=== PATIENT | female | born 1950 | race Caucasian/White ===

== ENCOUNTER 2017-03-01 23:40 | Inpatient (IN) ==
[2017-03-02] MEDS ORDERED: Acetaminophen 325 MG TABLET PO PRN (05:54)
[2017-03-02] MEDS ORDERED: Ondansetron ODT 4 MG TAB.RAPDIS SL PRN (05:54)
[2017-03-02] MEDS ORDERED: Naloxone 0.4 MG/ML INJ IVP PRN ×2 (05:54→06:53)
--- NOTE | 2017-03-02 06:12 | Internal Med History&Physical ---
Date of Encounter: 03/02/17 Time of Encounter: 06:17 Assessment and Plan (1) CHF exacerbation Current visit: Yes Status: Acute Secondary to non-compliance and increased sodium intake. Will give 40 mg IV Lasix x1 followed by 20 mg IV BID afterwords. Strict I/Os, daily weights. Reviewed echocardiogram from 10/2016. Qualifiers: Congestive heart failure type: diastolic Qualified Code(s): I50.33 - Acute on chronic diastolic (congestive) heart failure (2) Lower respiratory tract infection Current visit: Yes Status: Acute Start Levaquin emperically. Patient does not have much sputum production. Check procalcitonin and if is negative, stop Levaquin. (3) CAD (coronary artery disease) Current visit: Yes Status: Acute Plavix, simvastatin Qualifiers: Coronary Disease-Associated Artery/Lesion type: unspecified vessel or lesion type [place] vs. 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: unspecified nursing home insulin use status Qualified Code(s): E11.9 - Type 2 diabetes mellitus without complications (5) Hyperlipidemia Current visit: Yes Status: Acute resume home statin Qualifiers: Hyperlipidemia type: unspecified Qualified Code(s): E78.5 - Hyperlipidemia , unspecified (6) GERD (gastroesophageal reflux disease) Current visit: Yes Status: Acute resume home ppi Qualifiers: Esophagitis presence: esophagitis presence not specified Qualified Code(s) : K21.9 - Gastro-esophageal reflux disease without esophagitis (7) Peptic ulcer Current visit: Yes Status: Acute Internal Medicine - H&P: HPI History of present illness: Ms. Fitzpatrick is a 66 year old female with history of CAD, DM, HPL, GERD, PUD, DOMINICK presented to [facility] ED for respiratory distress and lower extremity edema. Patient has history of edema and is supposed to follow a low sodium diet. She notes for past several weeks she has been non-compliant with sodium restriction. She also has gradual increase in cough with some sputum production. She called her netezza developer for this respiratory distress and was prescribed Augmentin now on day 4 without any resolve. She admits to chest discomfort with coughing, orthopnea, non-compliant with CPAP because of mask irritation. She denies any fevers/chills, N/V, PND. At [facility] labs significant for BNP 5,231, glucose 248, creatinine within normal limits of 1.08. Troponin cycled was 0.14 and 0.13 respectively. Lactic acid was elevated at 3.5. An echocardiogram done in 10/2016 showed EF 65% with normal LVSF and mild diastolic dysfunction. She does not smoke, denies history of COPD. 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 Past Med Surg Social Fam HX - Past Medical History Medical history: arthritis, CHF, COPD, coronary artery disease, GERD, hyperlipidemia, hypertension Psychiatric history: depression - Past Surgical History Surgical History: coronary bypass (CABG) - Social History Smoking Status: Never smoker Smokeless Tobacco Status: No Alcohol use: none Drug use: none - Family History Mother Living Status: Hx Family Cardiac Disorders: Yes Father Living Status: Hx Family Cardiac Disorders: Yes Hx Family Cancer: Yes (bone cancer) Internal Medicine - H&P: Meds Amoxicillin/Clavulanate [Augmentin] 875 mg PO BID 03/02/17 [History] Calcium Carbonate/Vitamin D3 [Calcium 600-Vit D3 400 Tablet] 1 each PO DAILY [History] Carvedilol [Coreg] 3.125 mg PO BID 03/02/17 [History] Clopidogrel [Plavix] 75 mg PO DAILY 03/02/17 [History] FLUoxetine HCl [PROzac] 40 mg PO DAILY 03/02/17 [History] Gabapentin [Neurontin] 800 mg PO TID 03/02/17 [History] HYDROcodone/Acet 10/325 mg [[place] 10-325 mg] 1 tab PO BID PRN 03/02/17 [History] Insulin ASPART [Novolog Flexpen] 100 unit SQ ACHS 03/02/17 [History] Insulin Glargine [Lantus] 28 unit SQ HS 03/02/17 [History] Lisinopril [Zestril] 10 mg PO DAILY 03/02/17 [History] Magnesium Hydroxide [Milk of Magnesia] 100 ml PO DAILY PRN 03/02/17 [History] Pantoprazole Sodium [Protonix] 20 mg PO DAILY 03/02/17 [History] Sennosides [Senna] 8.6 mg PO BID PRN 03/02/17 [History] Simvastatin [Zocor] 40 mg PO HS 03/02/17 [History] Tizanidine HCl [Zanaflex] 4 mg PO TID PRN 03/02/17 [History] hydroCHLOROthiazide [Hydrochlorothiazide] 25 mg PO DAILY 03/02/17 [History] 3 Allergy/AdvReac Type Severity Reaction Status Date / Time codeine AdvReac Nausea Verified 10/01/15 10:27 All Systems PM: A 10-system review of systems was performed and is negative for pertinent findings except as documented above in the HPI. - Constitutional Constitutional: as per HPI, fever(s) - EENT Eyes: no change in vision, no discharge, no pain, no photophobia - Cardiovascular Cardiovascular ROS IM: chest pain, dyspnea, edema, no diaphoresis, no lightheadedness, no palpitations, no syncope - Respiratory Respiratory: cough, dyspnea, pain with cough, no hemoptysis, no wheezing - Gastrointestinal Gastrointestinal: no abdominal pain, no diarrhea, no hematemesis, no hematochezia, no melena, no nausea, no vomiting - Musculoskeletal Musculoskeletal ROS IM: no numbness, no tingling - Integumentary Integumentary IM: no rash, no unusual bruising - Constitutional Vitals: Temp Pulse Resp BP Pulse Ox 98.9 F 110 18 166/74 92 03/02/17 04:12 03/02/17 04:12 03/02/17 04:12 03/02/17 04:12 03/02/17 04:12 General appearance: Present: mild distress, A&O X 3, obese - Respiratory Additional comments: Poor inspiratory effort, poor air exchange at bases, no w/r/r. - Cardiovascular Cardiovascular exam: Present: RRR, +S1, +S2. Absent: diastolic murmur, gallop, JVD, rubs, systolic murmur - Extremities Exam Extremities exam: Present: pedal edema (2+), radial pulses palpable and symmetrical - Skin Skin exam: Present: dry, intact Internal Med - H&P Results - Labs CBC & Chem 7: 03/02/17 06:59 03/02/17 06:59
[2017-03-02] MEDS ORDERED: predniSONE 20 MG TABLET PO ONE (06:27)
[2017-03-02] MEDS ORDERED: Furosemide 40 MG/4 ML VIAL IVP ONE (06:49)
[2017-03-02] MEDS ORDERED: *HR* Labetalol 20 MG/4 ML SYRINGE IVP PRN (06:58)
[2017-03-02 07:14] LABS: Basophils # 0.1 K/mcL (0.0-0.2); Basophils % 0.5 %; Eosinophils % 0.1 %; Hematocrit 31.7 % (35.3-44.9); Hemoglobin 9.6 g/dL (11.5-15.4); Immature Granulocytes % 0.6 % (0-4); Lymphocytes % 6.8 %; Mean Corpuscular HGB Conc 30.3 g/dL (31.6-35.5); Mean Corpuscular Hemoglobin 28.1 pg (28.0-33.3); Mean Corpuscular Volume 92.7 fL (83.0-100.0); Mean Platelet Volume 9.7 fL (9.4-12.4); Monocytes # 1.4 K/mcL (0.0-1.3); Monocytes % 9.9 %; Neutrophils # 11.8 K/mcL (1.6-8.9); Platelet Count 308 K/mcL (140-400); Red Blood Count 3.42 M/mcL (3.82-4.97); Red Cell Distribution Width 14.7 % (11.5-14.5); Segmented Neutrophils % 82.1 %
[2017-03-02] MEDS ORDERED: Dextrose Gel 15 GM PO PRN ×2 (07:50)
[2017-03-02] MEDS ORDERED: D5% in Water 1,000 ML IVC PRN (07:50)
[2017-03-02] MEDS ORDERED: *HR* Dextrose 50 % in Water (Syg) 50 ML SYRINGE IVP PRN (07:50)
--- NOTE | 2017-03-02 08:14 | Internal Med Progress Note ---
<Yonatan Francis - Last Filed: 03/02/17 14:55> Date of Encounter: 03/02/17 Time of Encounter: 09:38 - Assessment and plan (1) COPD exacerbation Current Visit: Yes Status: Acute Assessment and plan: Patient states she does not have a history of COPD but does use oxygen at home has increased oxygen use to where she is been using a pulse 5 L at home when she used on the use as needed. Status post used constant. Continue oxygen therapy. If shortness of breath worsens consider BiPAP. (2) CHF exacerbation Current Visit: Yes Status: Acute Assessment and plan: Secondary to noncompliance and increased sodium intake. Gave 40 mg IV Lasix stat will continue 20 mg IV twice a day after this. Strict I/O's, daily weights. Echo was reviewed from 10/2016. Fluid restriction to 1500 mL per day. Qualifiers: Congestive heart failure type: unspecified congestive heart failure type Qualified Code(s): I50.9 - Heart failure, unspecified (3) Elevated troponin Current Visit: Yes Status: Acute Assessment and plan: Most likely due to demand ischemia because of the CHF exacerbation. Pt still with no Chest pain. We will trend every 6 hours if it lowers with Lasix therapy will put toward CHF exacerbation. If it does not trend down we will repeat EKG and consult cardiology. Give Aspirin Patient's second troponin was elevated at 0.37 started heparin low-dose ACS protocol. Also ordered limited echocardiogram and repeat EKG. Repeat EKG showed no acute ST changes. Consulted cardiology see their note for recommendations. (4) CAD (coronary artery disease) Current Visit: Yes Status: Acute Assessment and plan: Plavix, simvastatin, aspirin trend troponins, consider cardiology consultation. Qualifiers: Coronary Disease-Associated Artery/Lesion type: unspecified vessel or lesion type [place] vs. 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 Qualified Code(s): E11.9 - Type 2 diabetes mellitus without complications (6) Hyperlipidemia Current Visit: Yes Status: Acute Assessment and plan: Resume home statin Qualifiers: Hyperlipidemia type: unspecified Qualified Code(s): E78.5 - Hyperlipidemia , unspecified (7) GERD (gastroesophageal reflux disease) Current Visit: Yes Status: Acute Assessment and plan: Resume home PPI Qualifiers: Esophagitis presence: esophagitis presence not specified Qualified Code(s) : K21.9 - Gastro-esophageal reflux disease without esophagitis (8) Peptic ulcer Current Visit: Yes Status: Acute (9) Lower respiratory tract infection Current Visit: Yes Status: Acute Assessment and plan: Has been on Augmentin for 4 days from pulmonology has not been getting better with shortness of breath. We will empirically treat with Levaquin IV. Patient does not have much sputum production still following procalcitonin. - Time Spent With Patient 25 - 35 minutes - Subjective Interval history: Patient is doing well today says she is still short of breath and complaining of pain when she takes big deep respirations is not complaining of chest pain. She is not complaining of nausea or vomiting or any other pain. She was recently given Lasix and Dilaudid she starting to get up and urinate more. She is having pain with urination patient says after she was given pain medications and the pain is getting much better. - Constitutional Vitals: Temp Pulse Resp BP Pulse Ox 98.9 F 110 18 166/74 92 03/02/17 04:12 03/02/17 04:12 03/02/17 04:12 03/02/17 04:12 03/02/17 04:12 General appearance: Present: A&O X 3, no acute distress, answers questions appropriately - Head Head exam: Present: atraumatic, normocephalic - Eye Eye exam: Present: PERRL, conjuntiva pink, sclera anicteric Pupils: Present: PERRL - Neck Neck exam general surgery: Present: supple, trachea midline. Absent: lymphadenopathy - Respiratory Respiratory exam: Present: decreased breath sounds (No breath sounds on the left side due to lung paralysis.), wheezes (Mild on right side throughout). Absent: accessory muscle use, rales, rhonchi - Cardiovascular Cardiovascular exam: Present: RRR, +S1, +S2. Absent: diastolic murmur, gallop, rubs, systolic murmur - GI/Abdominal GI/Abdominal exam: Present: normal bowel sounds, soft, no peritoneal signs. Absent: distended, tenderness - Extremities Exam Extremities exam: Present: warm, radial pulses palpable and symmetrical. Absent : calf tenderness, cyanotic, pedal edema - Neurological Exam Neurological exam: Present: CN II-XII intact, oriented X3, no focal deficits. Absent: pronater drift, facial droop, speech deficit - Skin Skin exam: Present: dry, intact Internal Medicine: Result - Labs CBC & Chem 7: 03/02/17 13:36 03/02/17 06:59 Labs: Short CBC 03/02/17 Range/Units 06:59 WBC 14.3 H (4.3-11.1) K/mcL Hgb 9.6 L (11.5-15.4) g/dL Hct 31.7 L (35.3-44.9) % Plt Count 308 (140-400) K/mcL Neutrophils # 11.8 H (1.6-8.9) K/mcL Cardiac Enzymes 03/02/17 Range/Units 06:59 Troponin I 0.25 H* (< 0.04) ng/mL - EKG Interpretation EKG Interpreted by Myself: Yes EKG shows normal: sinus rhythm, axis, intervals, QRS complexes, ST-T waves Rate: tachycardia - EKG Data no acute changes Rhythm: NSR [place]/QRS: normal - Prior EKG Data Prior EKG available for review: yes When compared to previous EKG: there is no significant change EKG comments: 03/02/17 14:58 Repeat EKG done at 1425 review by myself and attending shows normal sinus rhythm at a rate of 95, OH interval 164, QRS 110, QTc [address] changes, no acute T-wave abnormalities, no signs of any heart strain or hypertrophy, no signs of any heart blocks, no signs of WPW/Brugada syndrome. This EKG is unchanged based on previous EKGs done yesterday. Consult Discharge Plan - Plan Referrals: Vane Mckee CNP [Primary Care Provider] - 03/17/17 8:00 am (Please follow up as schedule...) <Alfredo-Rubén Bartlett - Last Filed: 03/02/17 15:14> Date of Encounter: 03/02/17 - Constitutional Vitals: Temp Pulse Resp BP Pulse Ox 98.5 F 100 17 147/79 90 12/20/17 11:49 03/02/17 11:49 03/02/17 11:49 03/02/17 11:49 03/02/17 11:49 Internal Medicine: Result - Labs CBC & Chem 7: 03/02/17 13:36 03/02/17 06:59 Labs: Short CBC 03/02/17 03/02/17 Range/Units 06:59 13:36 WBC 14.3 H 13.9 H (4.3-11.1) K/mcL Hgb 9.6 L 9.8 L (11.5-15.4) g/dL Hct 31.7 L 32.5 L (35.3-44.9) % Plt Count 308 306 (140-400) K/mcL Neutrophils # 11.8 H (1.6-8.9) K/mcL BMP 03/02/17 06:59 Sodium 133 L Potassium 5.0 Chloride 93 L Carbon Dioxide 30 H BUN 14 Creatinine 0.88 Glucose 270 H Calcium 9.4 Cardiac Enzymes 03/02/17 03/02/17 Range/Units 06:59 12:43 Troponin I 0.25 H* 0.37 H* (< 0.04) ng/mL - ABG Interpretation ABG results: PT/INR, D-dimer PT 15.9 Seconds (9.4-12.1) H 03/02/17 13:36 - Attending Attestation I examined this patient and my medical decision-making was reviewed with the Resident Physician. I agree with the documented findings, disposition and treatment plan as described except to the extent set forth below. I have seen and examined the patient. Patient is currently awake and alert. Admitted for CHF exacerbation and pulmonary edema. Troponin is elevated. EKG does not show any acute ST-T changes. She is currently on IV heparin. Cardiology has been consulted. Continue Aspirin, Plavix and Atorvastatin. echocardiogram is pending. No other acute events or complaints.
[2017-03-02 08:17] LABS: BUN/Creatinine Ratio 16 (6-26); Blood Urea Nitrogen 14 mg/dL (8-23); Calcium 9.4 mg/dL (8.6-10.3); Carbon Dioxide 30 mEq/L (23-29); Chloride 93 mEq/L (98-107); Glucose 270 mg/dL (70-105); Magnesium 1.6 mg/dL (1.6-2.6); Osmolality,Calculated 286 (280-300); Phosphorous 2.5 mg/dL (2.7-4.5); Sodium 133 mEq/L (136-145); eGFR For African Americans > 60 (> 60); eGFR For Non-African Americans > 60 (> 60)
[2017-03-02] MEDS: Gabapentin 400 MG CAPSULE PO SCH ×3 (08:46→20:50)
[2017-03-02] MEDS ORDERED: MAGNESIUM HYDROXIDE PO PRN (08:52)
[2017-03-02] MEDS ORDERED: Sennosides 8.6 MG TABLET PO PRN (08:52)
[2017-03-02] MEDS ORDERED: *HR* HYDROcodone/Acet 10/325 mg TABLET PO PRN (08:52)
[2017-03-02] MEDS ORDERED: hydroCHLOROthiazide 25 MG TABLET PO SCH (09:00)
[2017-03-02] MEDS ORDERED: NON-FORMULARY MEDICATION 1 EACH EACH (Calcium Carbonate/Vitamin D3 [Calcium 600-Vit D3 400 PO SCH (09:00)
[2017-03-02] MEDS ORDERED: Mag Hydrox/Al Hydrox/Simeth 30 ML UDC PO PRN (09:05)
[2017-03-02] MEDS: FLUoxetine 20 MG CAPSULE PO SCH (09:19)
[2017-03-02] MEDS: Cholecalciferol (D-3) 1,000 UNIT TABLET PO SCH (09:20)
[2017-03-02] MEDS: *HR* OxyCODONE/APAP 5/325 TABLET PO PRN ×2 (09:20→17:38)
[2017-03-02] MEDS: Insulin LISPRO 300 UNITS/3 ML VIAL SQ SCH ×4 (09:50→20:50)
[2017-03-02] MEDS: Aspirin 81 MG TAB.CHEW PO SCH (11:59)
[2017-03-02] MEDS ORDERED: NON-FORMULARY MEDICATION 1 EACH EACH (Insulin Aspart [Novolog Flexpen] 100 UNIT) SQ SCH (12:00)
[2017-03-02] MEDS ORDERED: *HR* Heparin 5,000 UNIT/ML VIAL IVP ONE (13:27)
[2017-03-02] MEDS ORDERED: *HR* Heparin 5,000 UNIT/ML VIAL IVP PRN (13:27)
[2017-03-02 13:58] LABS: Hematocrit 32.5 % (35.3-44.9); Hemoglobin 9.8 g/dL (11.5-15.4); Mean Corpuscular HGB Conc 30.2 g/dL (31.6-35.5); Mean Corpuscular Hemoglobin 27.4 pg (28.0-33.3); Mean Corpuscular Volume 90.8 fL (83.0-100.0); Mean Platelet Volume 9.5 fL (9.4-12.4); Platelet Count 306 K/mcL (140-400); Red Blood Count 3.58 M/mcL (3.82-4.97); Red Cell Distribution Width 14.6 % (11.5-14.5)
[2017-03-02 14:02] LABS: INR 1.5; Prothrombin Time 15.9 Seconds (9.4-12.1)
[2017-03-02 14:05] LABS: Activated Partial Thrombo Time 29.3 Seconds (26.0-36.0)
--- NOTE | 2017-03-02 14:13 | Cardiology Consult Note ---
Addendum entered and electronically signed by Andi Campbell CNP 03/02/17 15:09: Discussed with Dr. Rees, recommends re-loading with 300mg Plavix. Will give now. Original Note: <Andi Campbell - Last Filed: 03/02/17 14:20> Date of Encounter: 03/02/17 Time of Encounter: 14:09 Assessment and Plan (1) Elevated troponin Current Visit: Yes Status: Acute Troponins 0.14, 0.13, 0.25, 0.37 in setting of CHF exacerbation--demand ischemia vs NSTEMI. Reports chest pressure, dyspnea. Recommend trending troponins. Significant CAD hx--Hx of PCI and most recently CABG in 2008--has not had LHC since that time. Echo 10/2016 EF LVEF 65%. Normal left ventricular size and systolic function, mild LVDD, mild TR, mild phtn. Recheck echo. Given elevated troponin, symptoms, and hx, recommend LHC once respiratory status allow. R/B/A discussed. Pt agrees. HGB 9.6--previously 11.4 09/2016. No evidence of active bleeding. Will continue to monitor. On ASA and Plavix. Will discuss with interventional cardiology if pt should be reloaded with Plavix. Start heparin gtt as well. (2) CHF exacerbation Current Visit: Yes Status: Acute BNP >5,000 at [facility]. Admits to excessive Na intake. Echo 10/2016 Preserved EF with mild LVDD. Recheck echo to determine type. Agree with IV diuresis. Recommend Strict I/Os, Na and fluid restriction, daily weights. Qualifiers: Congestive heart failure type: unspecified congestive heart failure type Qualified Code(s): I50.9 - Heart failure, unspecified (3) CAD (coronary artery disease) Current Visit: Yes Status: Acute Hx of PCI and CABG, most recently CABG in 2008. ASA, Statin, Plavix, BB. Qualifiers: Coronary Disease-Associated Artery/Lesion type: unspecified vessel or lesion type [place] vs. transplanted heart: [place] heart Associated angina: angina presence unspecified Qualified Code(s): I25.10 - Atherosclerotic heart disease of [place] coronary artery without angina pectoris Discussion w patient/family: The assessment and plan as outlined above was discussed with the patient and/or family members who expressed understanding and agreement. All questions were answered. Thank you for involving us in the care of your patient. Please call with any questions. I will discuss all the above with Dr. Han and make changes as necessary. History of Present Illness Consult date: 03/02/17 Requesting physician: Yonatan Francis Consult reason: NSTEMI, CHF Chief complaint: Dyspnea, chest pressure, lower extremity edema History of present illness: Ms. Fitzpatrick is a 66 year old female with history of CAD s/p PCI and CABG, DM, HLD , GERD, PUD, DOMINICK presented to [facility] ED for respiratory distress and lower extremity edema. Patient has history of intermittent edema and is supposed to follow a low sodium diet. She notes for past several weeks she has been non- compliant with sodium restriction. She also has gradual increase in cough with some sputum production. She called her urology physician for this respiratory distress and was prescribed Augmentin now on day 4 without any resolve. She admits to chest discomfort with exertion, coughing and when she gets short of breath, orthopnea, non-compliant with CPAP because of mask irritation. She denies any fevers/chills, N/V, PND. At [facility] BNP 5,231, Troponin at [facility] 0.14 and 0.13, now 0.25, 0.37. Echo 10/2016 showed EF 65%, mild diastolic dysfunction. 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 She has not had a LHC since CABG in 2008. Currently rates chest pressure 6/10. Cardiology consulted for further recommendations. Past Med Surg Social Fam HX - Past Medical History Medical history: arthritis, CHF, COPD, coronary artery disease, GERD, hyperlipidemia, hypertension Psychiatric history: depression - Past Surgical History Surgical History: coronary bypass (CABG) - Social History Smoking Status: Never smoker Smokeless Tobacco Status: No Alcohol use: none Drug use: none - Family History Mother Living Status: Hx Family Cardiac Disorders: Yes Father Living Status: Hx Family Cardiac Disorders: Yes Hx Family Cancer: Yes (bone cancer) Medications and Allergies Amoxicillin/Clavulanate [Augmentin] 875 mg PO BID 03/02/17 [History] Calcium Carbonate/Vitamin D3 [Calcium 600-Vit D3 400 Tablet] 1 each PO DAILY [History] Carvedilol [Coreg] 3.125 mg PO BID 03/02/17 [History] Clopidogrel [Plavix] 75 mg PO DAILY 03/02/17 [History] FLUoxetine HCl [PROzac] 40 mg PO DAILY 03/02/17 [History] Gabapentin [Neurontin] 800 mg PO TID 03/02/17 [History] HYDROcodone/Acet 10/325 mg [[place]ixson 10-325 mg] 1 tab PO BID PRN 03/02/17 [History] Insulin ASPART [Novolog Flexpen] 100 unit SQ ACHS 03/02/17 [History] Insulin Glargine [Lantus] 28 unit SQ HS 03/02/17 [History] Lisinopril [Zestril] 10 mg PO DAILY 03/02/17 [History] Magnesium Hydroxide [Milk of Magnesia] 100 ml PO DAILY PRN 03/02/17 [History] Pantoprazole Sodium [Protonix] 20 mg PO DAILY 03/02/17 [History] Sennosides [Senna] 8.6 mg PO BID PRN 03/02/17 [History] Simvastatin [Zocor] 40 mg PO HS 03/02/17 [History] Tizanidine HCl [Zanaflex] 4 mg PO TID PRN 03/02/17 [History] hydroCHLOROthiazide [Hydrochlorothiazide] 25 mg PO DAILY 03/02/17 [History] 3 Allergy/AdvReac Type Severity Reaction Status Date / Time codeine AdvReac Nausea Verified 10/01/15 10:27 All Systems Review: A 10-system review of systems was performed and is negative for pertinent findings except as documented above in the HPI. - Cardiovascular Cardiovascular: as per HPI, chest pain at rest, chest pain with exertion, dyspnea at rest, dyspnea on exertion, orthopnea - Respiratory Respiratory: cough, dyspnea Physical Examination Vital Signs, Last 4 Hours Temp Pulse Resp BP Pulse Ox 03/02/17 11:49 98.5 F 100 17 147/79 90 Vital Signs Temp Pulse Resp BP Pulse Ox 03/02/17 11:49 98.5 F 100 17 147/79 90 03/02/17 04:12 98.9 F 110 18 166/74 92 03/02/17 01:17 99.4 F 112 18 166/85 95 Intake and Output 03/01/17 03/02/17 03/02/17 23:59 07:59 15:59 Intake Total 0 / 0 Output Total 500 / 500 500 / 500 Balance -500 / -500 -500 / -500 Intake: Oral 0 / 0 Output: Urine 500 / 500 500 / 500 Other: Meal Breakfast Percent of Meal Consumed 100% Weight 98.43 kg Blood Glucose* 230 Patient Weight 03/02/17 23:59 Weight 98.43 kg General: Conversant, No Apparent Distress HEENT: Atraumatic, Normocephaly, Mucus Membranes Moist Neck: Normal carotid pulses Cardiac: Reg Rate and Rhythm, Normal S1 and S2, No Murmur Lungs: Other (diminished) Neuro: Alert and responsive, No focal deficits noted Abdomen: Soft, Non-Tender Skin: No rashes noted on visualized skin Musculoskeletal: No Chest Wall Tenderness Extremities: No Clubbing, No Cyanosis, No Edema, Normal Pulses Results 03/02/17 13:36 03/02/17 06:59 Lab Results 03/02/17 03/02/17 03/02/17 06:59 06:59 06:59 WBC 14.3 H Hgb 9.6 L Hct 31.7 L Plt Count 308 INR APTT Sodium 133 L Potassium 5.0 Chloride 93 L Carbon Dioxide 30 H BUN 14 Creatinine 0.88 Glucose 270 H Calcium 9.4 Magnesium 1.6 Troponin I 0.25 H* 03/02/17 03/02/17 12:43 13:36 WBC Hgb Hct Plt Count INR 1.5 APTT 29.3 Sodium Potassium Chloride Carbon Dioxide BUN Creatinine Glucose Calcium Magnesium Troponin I 0.37 H* Short CBC 03/02/17 03/02/17 Range/Units 13:36 06:59 WBC 13.9 H 14.3 H (4.3-11.1) K/mcL Hgb 9.8 L 9.6 L (11.5-15.4) g/dL Hct 32.5 L 31.7 L (35.3-44.9) % Plt Count 306 308 (140-400) K/mcL Neutrophils # 11.8 H (1.6-8.9) K/mcL BMP 03/02/17 Range/Units 06:59 Sodium 133 L (136-145) mEq/L Potassium 5.0 (3.5-5.1) mEq/L Chloride 93 L (98-107) mEq/L Carbon Dioxide 30 H (23-29) mEq/L BUN 14 (8-23) mg/dL Creatinine 0.88 (0.60-1.20) mg/dL Glucose 270 H (70-105) mg/dL Calcium 9.4 (8.6-10.3) mg/dL Cardiac Enzymes 03/02/17 03/02/17 Range/Units 12:43 06:59 Troponin I 0.37 H* 0.25 H* (< 0.04) ng/mL Active Medications Acetaminophen (Tylenol) 650 mg PO Q6HR PRN PRN Reason: Mild Pain (1-3) Stop: 09/01/17 05:55 Al Hydrox/Mg Hydrox/Simethicone (Maalox) 30 ml PO Q8H PRN; Protocol PRN Reason: Indigestion/Heartburn Stop: 09/01/17 09:06 Aspirin (Aspirin) 81 mg PO DAILY [facility] Stop: 09/01/17 10:31 Last Admin: 03/02/17 11:59 Dose: 81 mg Atorvastatin Calcium (Lipitor) 40 mg PO HS [facility] Stop: 09/01/17 21:01 Calcium Carbonate (Tums) 500 mg PO DAILY LAST PRN Reason: Protocol Stop: 09/01/17 09:16 Last Admin: 03/02/17 09:18 Dose: 500 mg Carvedilol (Coreg) 3.125 mg PO BIDWM LAST PRN Reason: Protocol Stop: 09/01/17 08:01 Last Admin: 03/02/17 08:46 Dose: 3.125 mg Clopidogrel Bisulfate (Plavix) 75 mg PO DAILY [facility] Stop: 09/01/17 09:01 Last Admin: 03/02/17 08:46 Dose: 75 mg Dextrose/Water (Dextrose 50% (Syg)) 25 ml IVP AD PRN PRN Reason: Hypoglycemia Stop: 09/01/17 07:51 Fluoxetine HCl (Prozac) 40 mg PO DAILY LAST PRN Reason: Protocol Stop: 09/01/17 09:01 Last Admin: 03/02/17 09:19 Dose: 40 mg Furosemide (Lasix) 20 mg IVP BIDDIURETIC [facility] Stop: 03/05/17 08:01 Gabapentin (Neurontin) 800 mg PO TID [facility] Stop: 09/01/17 09:01 Last Admin: 03/02/17 08:46 Dose: 800 mg Glucagon (Glucagen) 1 mg IM ONCE PRN PRN Reason: Hypoglycemia Stop: 09/01/17 07:51 Glucose (Gluctose) 15 gm PO ONCE PRN PRN Reason: Hypoglycemia Stop: 09/01/17 07:51 Glucose (Gluctose) 30 gm PO ONCE PRN PRN Reason: Hypoglycemia Stop: 09/01/17 07:51 Heparin Sodium (Porcine) (Heparin) 4,000 unit IVP Q6HR PRN PRN Reason: SEE COMMENTS Stop: 09/01/17 13:28 Heparin Sodium (Porcine) (Heparin) 2,000 unit IVP Q6H PRN PRN Reason: SEE COMMENTS Stop: 09/01/17 13:28 Hydrochlorothiazide (Hydrochlorothiazide) 25 mg PO DAILY LAST PRN Reason: Protocol Stop: 09/01/17 09:01 Last Admin: 03/02/17 09:19 Dose: 25 mg Dextrose (Dextrose 5%) 1,000 mls @ 100 mls/hr IVC .Q10H PRN PRN Reason: HYPOGLYCEMIA Stop: 09/01/17 07:51 Heparin Sodium/Dextrose (Heparin 25,000 Unit/500 Ml D5w) 25,000 unit in 500 mls @ 19.686 mls/hr IVC .Q24H LAST; 10 UNIT/KG/HR PRN Reason: Protocol Stop: 09/01/17 13:31 Insulin Detemir (Levemir) 28 unit SQ HS LAST Stop: 09/01/17 21:01 Insulin Human Lispro (Humalog) 0 units SQ HS LAST PRN Reason: Protocol Stop: 09/01/17 21:01 Insulin Human Lispro (Humalog) 0 units SQ TIDAC LAST PRN Reason: Protocol Stop: 09/01/17 07:52 Last Admin: 03/02/17 11:55 Dose: 6 units Labetalol HCl (Labetalol) 10 mg IVP Q6H PRN PRN Reason: Blood Pressure - High Stop: 09/01/17 06:59 Lansoprazole (Prevacid) 15 mg PO DAILY@0730 LAST PRN Reason: Protocol Stop: 09/01/17 07:51 Last Admin: 03/02/17 09:19 Dose: 15 mg Lisinopril (Zestril) 10 mg PO DAILY LAST PRN Reason: Protocol Stop: 09/01/17 09:01 Last Admin: 03/02/17 09:20 Dose: 10 mg Naloxone HCl (Narcan) 0.4 mg IVP Q2MIN PRN PRN Reason: Opioid Reversal Stop: 09/01/17 06:54 Ondansetron HCl (Zofran Odt) 4 mg SL Q8HR PRN PRN Reason: Nausea And Vomiting Stop: 09/01/17 05:55 Last Admin: 03/02/17 09:49 Dose: 4 mg Oxycodone/Acetaminophen (Percocet 5/325) 1 each PO Q6HR PRN PRN Reason: Moderate to Severe Pain (4-10) Stop: 09/01/17 06:59 Last Admin: 03/02/17 09:20 Dose: 1 each Senna (Senna) 8.6 mg PO BID PRN PRN Reason: Constipation Stop: 09/01/17 08:53 Tizanidine HCl (Zanaflex) 4 mg PO TID PRN PRN Reason: MUSCLE SPASMS Vitamin D (Vitamin D) 1,000 unit PO DAILY LAST Stop: 09/01/17 09:16 Last Admin: 03/02/17 09:20 Dose: 1,000 unit - Imaging and Cardiology Echo: report reviewed - EKG Interpretation EKG results cardiology: personally reviewed (Sinus tach, old anterior [place]) Consult Discharge Plan - Plan Referrals: Vane Mckee CNP [Primary Care Provider] - 03/17/17 8:00 am (Please follow up as schedule...) <Adali Han - Last Filed: 03/02/17 16:17> Date of Encounter: 03/02/17 - Attending Attestation I examined this patient and my medical decision-making was reviewed with the Resident Physician. I agree with the documented findings, disposition and treatment plan. Ms. Fitzpatrick presented from [facility] emergency room for respiratory distress and lower extremity edema. She has a history of intermittent edema and is supposed to follow a low-sodium diet. She has also noticed cough and sputum production and was prescribed Augmentin as an outpatient. Associated with this has been symptoms of chest pressure notable with exertion. Her LV systolic function previously has been normal and she has had mild diastolic dysfunction and normal RV function. For the last several weeks she has been noncompliant with sodium restriction. While at [facility], BNP 5231, troponins flat but now uptrending. Last [facility] was at time of her CABG in 2008. At this time, we recommend diuresing and checking an echo for evaluation of structure and function. Given her symptoms, presenting findings and troponin elevation, we have recommended considering proceeding with a left heart catheterization out of concern for NSTEMI. She is unable to lay flat at this time. Recommend 24 hours of IV diuresis. We will reevaluate her tomorrow. The risks, benefits and alternatives of heart catheterization were discussed with the patient. She expressed understanding and agreed to proceed once her clinical status improves. Continue aspirin, statin and beta gerardo. We will re-load her with plavix. She is on heparin drip. Assessment and Plan Discussion w patient/family: The assessment and plan as outlined above was discussed with the patient and/or family members who expressed understanding and agreement. All questions were answered. Thank you for involving us in the care of your patient. Please call with any questions. History of Present Illness History of present illness: Ms. Fitzpatrick is a 66 year old female All Systems Review: A 10-system review of systems was performed and is negative for pertinent findings except as documented above in the HPI. Physical Examination Vital Signs, Last 4 Hours Temp Pulse Resp BP Pulse Ox 03/02/17 16:05 98.7 F 100 17 169/81 95 Results 03/02/17 13:36 03/02/17 06:59 Lab Results 03/02/17 03/02/17 03/02/17 06:59 06:59 06:59 WBC 14.3 H Hgb 9.6 L Hct 31.7 L Plt Count 308 INR APTT Sodium 133 L Potassium 5.0 Chloride 93 L Carbon Dioxide 30 H BUN 14 Creatinine 0.88 Glucose 270 H Calcium 9.4 Magnesium 1.6 Troponin I 0.25 H* 03/02/17 03/02/17 03/02/17 12:43 13:36 13:36 WBC 13.9 H Hgb 9.8 L Hct 32.5 L Plt Count 306 INR 1.5 APTT 29.3 Sodium Potassium Chloride Carbon Dioxide BUN Creatinine Glucose Calcium Magnesium Troponin I 0.37 H*
[2017-03-02] MEDS: Heparin 25,000 UNIT/500 ML D5W 25,000 UNIT/500 ML BAG IVC SCH (14:32)
[2017-03-02] MEDS: Furosemide 40 MG/4 ML VIAL IVP SCH (15:54)
[2017-03-02] MEDS ORDERED: Furosemide 40 MG/4 ML VIAL IVP SCH (17:00)
[2017-03-02] MEDS ORDERED: Perflutren Lipid Microsphere 1.3 ML in 0.9 % Sodium Chloride 8.7 ML IVP ONE (19:02)
[2017-03-02] MEDS ORDERED: Perflutren Lipid Microsphere 2 ML VIAL ONE (19:04)
[2017-03-02] MEDS: Insulin DETEMIR 100 UNIT/ML X5UNITS SQ SCH (20:50)
[2017-03-02] MEDS: tiZANidine 4 MG TABLET PO PRN (20:52)
[2017-03-02] MEDS ORDERED: NON-FORMULARY MEDICATION 1 EACH EACH (Insulin Glargine [Lantus] 28 UNIT) SQ SCH (21:00)
[2017-03-02] MEDS: *HR* Heparin 5,000 UNIT/ML VIAL IVP PRN (22:34)
[2017-03-02] MEDS ORDERED: Insulin LISPRO 300 UNITS/3 ML VIAL SQ ONE (22:38)
[2017-03-03] MEDS ORDERED: Insulin LISPRO 300 UNITS/3 ML VIAL SQ ONE ×2 (00:05→22:30)
[2017-03-03 01:53] LABS: Basophils % 0.2 %; Eosinophils % 0.1 %; Hematocrit 30.4 % (35.3-44.9); Hemoglobin 9.4 g/dL (11.5-15.4); Immature Granulocytes % 0.5 % (0-4); Lymphocytes # 1.1 K/mcL (0.6-4.6); Lymphocytes % 7.4 %; Mean Corpuscular HGB Conc 30.9 g/dL (31.6-35.5); Mean Corpuscular Volume 90.5 fL (83.0-100.0); Monocytes # 1.5 K/mcL (0.0-1.3); Monocytes % 9.5 %; Neutrophils # 12.6 K/mcL (1.6-8.9); Platelet Count 300 K/mcL (140-400); Red Blood Count 3.36 M/mcL (3.82-4.97); Red Cell Distribution Width 14.6 % (11.5-14.5); Segmented Neutrophils % 82.3 %
[2017-03-03 02:13] LABS: Calcium 9.4 mg/dL (8.6-10.3); Magnesium 1.7 mg/dL (1.6-2.6); Phosphorous 2.5 mg/dL (2.7-4.5); Potassium 3.9 mEq/L (3.5-5.1)
[2017-03-03] MEDS: *HR* Heparin 5,000 UNIT/ML VIAL IVP PRN (06:22)
[2017-03-03] MEDS: *HR* OxyCODONE/APAP 5/325 TABLET PO PRN ×2 (06:24→14:01)
--- NOTE | 2017-03-03 08:06 | Electrocardiograph Report ---
[place] [id number] Test Date: 2017-03-02 Pat Name: Dahlia Fitzpatrick Department: 112 Room: 2A Gender: Security Representative: RENETTA : 1950 Requested By: Rubén Blanchard Order Number: [id number] Reading MD: Wellington Jackson DO Measurements Intervals [place] Rate: 98 P: 142 MI: 164 QRS: 179 QRSD: 106 T: 108 QT: 359 QTc: 414 Interpretive Statements Sinus rhythm with PACs Limb lead reversal Recommend repeat ECG Electronically Signed On 03-03-2017 8:04:14 EST by Wellington Jackson DO
--- NOTE | 2017-03-03 08:58 | Internal Med Progress Note ---
<Augusto Waters - Last Filed: 03/03/17 08:54> Date of Encounter: 03/03/17 Time of Encounter: 08:45 - Assessment and plan (1) CHF exacerbation Current Visit: Yes Status: Acute Assessment and plan: Secondary to noncompliance and increased sodium intake. Since having Lasix yesterday she has had a net negative fluid balance of 2.5 L. Echo was reviewed from 10/2016. Gave 40 mg IV Lasix yesterday morning was continued on 20 mg IV twice a day This was increased to 40 mg IV twice a day by cardiology Strict I/O's, daily weights. Fluid restriction to 1500 mL per day Consider decreasing Lasix in light of her acute kidney injury Qualifiers: Congestive heart failure type: unspecified congestive heart failure type Qualified Code(s): I50.9 - Heart failure, unspecified (2) COPD exacerbation Current Visit: Yes Status: Acute Assessment and plan: Patient states she does not have a history of COPD but does use oxygen at home has increased oxygen use to where she is been using a pulse 5 L at home when she used on the use as needed Continue oxygen therapy. If shortness of breath worsens consider BiPAP. Continue Levaquin IV (3) Elevated troponin Current Visit: Yes Status: Acute Assessment and plan: Most likely due to demand ischemia because of the CHF exacerbation. Patient has been complaining of chest heaviness, though states she has had improvement with diuresis. Troponins have trended 5 a reach their peak at 0.50 at 1:00 this morning and has since trended downward. Cardiology was consulted yesterday and plan for left heart catheterization later today, she is currently on heparin drip. Repeat EKG continued to show no acute changes Limited echo ordered Consulted cardiology (4) FLO (acute kidney injury) Current Visit: Yes Status: Acute Assessment and plan: Patient has developed acute kidney injury since yesterday. When she presented her dysphagia for was greater than 60 with a serum creatinine 0.88. As of this morning her estimated GFR was 45 with a serum creatinine 1.41. Likely source of history of present illness due to nephrotoxic medications and diuresis with Lasix. There is a planned left heart catheterization later today with contrast likely to worsen patient history of present illness. We will hold patient nephrotoxic agents We will discuss decreasing patient Lasix with cardiology We will continue to monitor renal function daily (5) CAD (coronary artery disease) Current Visit: Yes Status: Acute Assessment and plan: Patient had previous CABG. She has complained of chest heaviness since admission, but since she has improvement with some diuresis. Peak troponins reached at 0.50 and since trended downward. Cardiology has been consulted and plan for left heart catheterization today, appreciate continued recommendations Plavix simvastatin aspirin Qualifiers: Coronary Disease-Associated Artery/Lesion type: unspecified vessel or lesion type [place] vs. transplanted heart: [place] heart Associated angina: angina presence unspecified Qualified Code(s): I25.10 - Atherosclerotic heart disease of [place] coronary artery without angina pectoris (6) Diabetes Current Visit: Yes Status: Acute Assessment and plan: Diabetic diet, home insulin, ISS Qualifiers: Diabetes mellitus type: type 2 Diabetes mellitus complication status: without complication Diabetes mellitus adjunct faculty for medical terminology insulin use: unspecified fpc insulin use status Qualified Code(s): E11.9 - Type 2 diabetes mellitus without complications (7) GERD (gastroesophageal reflux disease) Current Visit: Yes Status: Acute Assessment and plan: Resume home PPI Qualifiers: Esophagitis presence: esophagitis presence not specified Qualified Code(s) : K21.9 - Gastro-esophageal reflux disease without esophagitis (8) Hyperlipidemia Current Visit: Yes Status: Acute Assessment and plan: Resume home statin Qualifiers: Hyperlipidemia type: unspecified Qualified Code(s): E78.5 - Hyperlipidemia , unspecified (9) DVT prophylaxis Current Visit: Yes Status: Acute Assessment and plan: Patient on heparin drip - Subjective Interval history: Patient doing better this morning. She states she is able to breathe a lot better than she did yesterday. She states she is unable to lie down flat due to the pain in her back, not because she is having difficulty with her breathing. She states she has had some improvement with chest heaviness that she had previously, but is still present. She also states he feels a swelling of the lower extremities has gone down a fair degree since yesterday and notes that her skin is no longer tight and shiny. - Constitutional Vitals: Temp Pulse Resp BP Pulse Ox 98.0 F 85 16 118/72 97 03/03/17 07:04 03/03/17 07:04 03/03/17 07:04 03/03/17 07:04 03/03/17 07:04 General appearance: Present: A&O X 3, no acute distress, answers questions appropriately Exam: General: Cooperative, pleasant, no acute distress, alert and oriented 3, answers questions appropriately HEENT: Normocephalic, atraumatic, Conjunctiva pink, sclera anicteric,ooral mucosa moist Respiratory: No accessory muscle usage, diffuse rales on auscultation, improved from yesterday Cardiovascular: Regular rate and rhythm, S1 and S2 present, no murmurs/rubs/ gallops/clicks appreciated GI/abdominal: Nondistended, nontender, soft, normal bowel sounds, no peritoneal signs Extremities: No calf tenderness, noncyanotic, mild - 1+ pedal edema appreciated , warm, lower extremity pulses palpable and symmetrical Neurological: Alert and oriented 3, no facial droop, no focal deficits Skin: Dry, intact, normal color Internal Medicine: Result - Labs CBC & Chem 7: 03/03/17 01:08 03/03/17 01:08 Labs: Short CBC 03/02/17 03/03/17 Range/Units 13:36 01:08 WBC 13.9 H 15.3 H (4.3-11.1) K/mcL Hgb 9.8 L 9.4 L (11.5-15.4) g/dL Hct 32.5 L 30.4 L (35.3-44.9) % Plt Count 306 300 (140-400) K/mcL Neutrophils # 12.6 H (1.6-8.9) K/mcL BMP 03/03/17 01:08 Sodium 138 Potassium 3.9 Chloride 92 L Carbon Dioxide 35 H BUN 19 Creatinine 1.41 H Glucose 187 H Calcium 9.4 Cardiac Enzymes 03/02/17 03/02/17 03/03/17 Range/Units 12:43 20:05 01:08 Troponin I 0.37 H* 0.36 H* 0.50 H* (< 0.04) ng/mL 03/03/17 Range/Units 06:47 Troponin I 0.41 H* (< 0.04) ng/mL - ABG Interpretation ABG results: PT/INR, D-dimer PT 15.9 Seconds (9.4-12.1) H 03/02/17 13:36 Consult Discharge Plan - Plan Referrals: Vane Mckee CNP [Primary Care Provider] - 03/17/17 8:00 am (Please follow up as schedule...) <Alfredo-Rubén Bartlett - Last Filed: 03/03/17 14:26> Date of Encounter: 03/03/17 - Constitutional Vitals: Temp Pulse Resp BP Pulse Ox 97.9 F 88 16 127/78 97 03/03/17 10:53 03/03/17 10:53 03/03/17 10:53 03/03/17 10:53 03/03/17 10:53 Internal Medicine: Result - Labs CBC & Chem 7: 03/03/17 01:08 03/03/17 01:08 Labs: Short CBC 03/03/17 Range/Units 01:08 WBC 15.3 H (4.3-11.1) K/mcL Hgb 9.4 L (11.5-15.4) g/dL Hct 30.4 L (35.3-44.9) % Plt Count 300 (140-400) K/mcL Neutrophils # 12.6 H (1.6-8.9) K/mcL BMP 03/03/17 01:08 Sodium 138 Potassium 3.9 Chloride 92 L Carbon Dioxide 35 H BUN 19 Creatinine 1.41 H Glucose 187 H Calcium 9.4 Cardiac Enzymes 03/02/17 03/03/17 03/03/17 Range/Units 20:05 01:08 06:47 Troponin I 0.36 H* 0.50 H* 0.41 H* (< 0.04) ng/mL - ABG Interpretation ABG results: PT/INR, D-dimer PT 15.9 Seconds (9.4-12.1) H 03/02/17 13:36 - Impressions Impressions Echocardiogram Limited Views 03/02/17 13:29 Impressions: LVEF 55%. Despite the use of contrast, image quality was suboptimal. Normal LV chamber size and wall thickness. Atypical septal motion consistent with post-operative status. Findings: Study Quality * Technically sub-optimal due to poor echocardiographic windows. ECG Findings * Normal sinus rhythm. Left Ventricle * LVEF 55%. Despite the use of contrast, image quality was suboptimal. * Normal LV chamber size and wall thickness. * Atypical septal motion consistent with post-operative status. Right Ventricle * Normal right ventricular structure and function. Pericardium * The pericardium appears normal. IVC * The IVC is not well evaluated. - Attending Attestation I examined this patient and my medical decision-making was reviewed with the Resident Physician. I agree with the documented findings, disposition and treatment plan as described except to the extent set forth below. I have seen and examined the patient. She is awake and alert. Not in any distress. States she feels better. [facility] is pending. Cardiology is following. Patient has acute kidney injury likely due to Lasix use. Avoid nephrotoxic agents. Continue heparin drip. No other acute events or complaints.
[2017-03-03] MEDS ORDERED: predniSONE 20 MG TABLET PO SCH (09:00)
--- NOTE | 2017-03-03 10:46 | Cardiology Progress Note ---
Date of Encounter: 03/03/17 Time of Encounter: 10:43 Assessment and Plan (1) Elevated troponin Current Visit: Yes Status: Acute Troponins peaked at 0.50, downtrended to 0.41 in setting of CHF exacerbation-- demand ischemia vs NSTEMI. Reports chest pressure, dyspnea. Significant CAD hx--Hx of PCI and most recently CABG in 2008--has not had LHC since that time. Echo 10/2016 EF LVEF 65%. Normal left ventricular size and systolic function, mild LVDD, mild TR, mild phtn. Recheck echo. Given elevated troponin, symptoms, and hx, recommend LHC. R/B/A discussed and pt agrees. However, renal function worsened today after diuresis. Will cath once renal function allows, NPO after midnight. HGB 9.4--previously 11.4 09/2016. Will continue to monitor--stable since admission. On ASA, Plavix and heparin gtt. Reloaded with Plavix yesterday. (2) CHF exacerbation Current Visit: Yes Status: Acute BNP >5,000 at [facility]. Admits to excessive Na intake. Echo 10/2016 Preserved EF with mild LVDD. Recheck echo to determine type. Agree with IV diuresis. Was on IV Lasix 40mg BID yesterday, but worsening creatinine today--1.41, decrease Lasix to 20mg IV BID. ACEi on hold. Cumulative I/O -2438mL. Recommend Strict I/Os, Na and fluid restriction, daily weights. Qualifiers: Congestive heart failure type: unspecified congestive heart failure type Qualified Code(s): I50.9 - Heart failure, unspecified (3) CAD (coronary artery disease) Current Visit: Yes Status: Acute Hx of PCI and CABG, most recently CABG in 2008. ASA, Statin, Plavix, BB. Qualifiers: Coronary Disease-Associated Artery/Lesion type: unspecified vessel or lesion type [place] vs. transplanted heart: [place] heart Associated angina: angina presence unspecified Qualified Code(s): I25.10 - Atherosclerotic heart disease of [place] coronary artery without angina pectoris (4) Atrial ectopy Current Visit: Yes Status: Acute 4 beat run of atrial ectopy on telemetry, uncertain rhythm. Will continue to monitor telemetry while inpt, consider holter monitor on discharge. Discussion w patient/family: The assessment and plan as outlined above was discussed with the patient and/or family members who expressed understanding and agreement. All questions were answered. Thank you for involving us in the care of your patient. Please call with any questions. I will discuss all the above with Dr. Han and make changes as necessary. Subjective Principal diagnosis: CHF, NSTEMI Interval history: Troponin peaked at 0.50, downtrended 0.41. Cumulative I/O -2438mL. Reports symptoms of dyspnea and chest pressure have improved. Creatinine has worsened, 1.41. Objective Vital Signs, Last 4 Hours Temp Pulse Resp BP Pulse Ox 03/03/17 07:04 98.0 F 85 16 118/72 97 Vital Signs Temp Pulse Resp BP Pulse Ox 03/03/17 07:04 98.0 F 85 16 118/72 97 03/03/17 04:00 98.4 F 76 16 100/60 96 03/02/17 23:07 98.3 F 98 16 142/82 94 03/02/17 19:50 98.0 F 101 18 158/85 93 03/02/17 16:05 98.7 F 100 17 169/81 95 03/02/17 11:49 98.5 F 100 17 147/79 90 Intake and Output 03/02/17 03/03/17 03/03/17 23:59 07:59 15:59 Intake Total 132 / 132 130 / 130 Output Total 1300 / 1300 400 / 400 Balance -1168 / -1168 -270 / -270 Intake: IV Fluids 132 / 132 130 / 130 Heparin 25,000 UNIT/500 ML D5W 132 / 132 130 / 130 25,000 unit In 500 ml @ 10 UNIT /KG/HR 19.686 mls/hr IVC .Q24H [facility] Rx#:[id number] Oral 0 / 0 Output: Urine 1300 / 1300 400 / 400 Other: Meal npo breakfast Weight 98.1 kg Blood Glucose* 341 118 Patient Weight 03/03/17 23:59 Weight 98.1 kg General: Conversant, No Apparent Distress HEENT: Atraumatic, Normocephaly, Mucus Membranes Moist Neck: Normal carotid pulses Cardiac: Reg Rate and Rhythm, Normal S1 and S2, No Murmur Lungs: Other (diminished) Neuro: Alert and responsive, No focal deficits noted Abdomen: Soft, Non-Tender Skin: No rashes noted on visualized skin Musculoskeletal: No Chest Wall Tenderness Extremities: No Clubbing, No Cyanosis, No Edema, Normal Pulses Results 03/03/17 01:08 03/03/17 01:08 Lab Results 03/02/17 03/02/17 03/02/17 12:43 13:36 13:36 WBC 13.9 H Hgb 9.8 L Hct 32.5 L Plt Count 306 INR 1.5 APTT 29.3 Sodium Potassium Chloride Carbon Dioxide BUN Creatinine Glucose Calcium Magnesium Troponin I 0.37 H* 03/02/17 03/02/17 03/03/17 20:05 20:05 01:08 WBC Hgb Hct Plt Count INR APTT 43.8 H Sodium Potassium Chloride Carbon Dioxide BUN Creatinine Glucose Calcium Magnesium Troponin I 0.36 H* 0.50 H* 03/03/17 03/03/17 03/03/17 01:08 01:08 04:41 WBC 15.3 H Hgb 9.4 L Hct 30.4 L Plt Count 300 INR APTT 32.2 Sodium 138 Potassium 3.9 Chloride 92 L Carbon Dioxide 35 H BUN 19 Creatinine 1.41 H Glucose 187 H Calcium 9.4 Magnesium 1.7 Troponin I 03/03/17 06:47 WBC Hgb Hct Plt Count INR APTT Sodium Potassium Chloride Carbon Dioxide BUN Creatinine Glucose Calcium Magnesium Troponin I 0.41 H* Short CBC 03/03/17 03/02/17 Range/Units 01:08 13:36 WBC 15.3 H 13.9 H (4.3-11.1) K/mcL Hgb 9.4 L 9.8 L (11.5-15.4) g/dL Hct 30.4 L 32.5 L (35.3-44.9) % Plt Count 300 306 (140-400) K/mcL Neutrophils # 12.6 H (1.6-8.9) K/mcL BMP 03/03/17 Range/Units 01:08 Sodium 138 (136-145) mEq/L Potassium 3.9 (3.5-5.1) mEq/L Chloride 92 L (98-107) mEq/L Carbon Dioxide 35 H (23-29) mEq/L BUN 19 (8-23) mg/dL Creatinine 1.41 H (0.60-1.20) mg/dL Glucose 187 H (70-105) mg/dL Calcium 9.4 (8.6-10.3) mg/dL Short CBC 03/03/17 03/02/17 Range/Units 01:08 13:36 WBC 15.3 H 13.9 H (4.3-11.1) K/mcL Hgb 9.4 L 9.8 L (11.5-15.4) g/dL Hct 30.4 L 32.5 L (35.3-44.9) % Plt Count 300 306 (140-400) K/mcL Neutrophils # 12.6 H (1.6-8.9) K/mcL BMP 03/03/17 Range/Units 01:08 Sodium 138 (136-145) mEq/L Potassium 3.9 (3.5-5.1) mEq/L Chloride 92 L (98-107) mEq/L Carbon Dioxide 35 H (23-29) mEq/L BUN 19 (8-23) mg/dL Creatinine 1.41 H (0.60-1.20) mg/dL Glucose 187 H (70-105) mg/dL Calcium 9.4 (8.6-10.3) mg/dL Cardiac Enzymes 03/03/17 03/03/17 03/02/17 Range/Units 06:47 01:08 20:05 Troponin I 0.41 H* 0.50 H* 0.36 H* (< 0.04) ng/mL 03/02/17 Range/Units 12:43 Troponin I 0.37 H* (< 0.04) ng/mL Active Medications Acetaminophen (Tylenol) 650 mg PO Q6HR PRN PRN Reason: Mild Pain (1-3) Stop: 09/01/17 05:55 Al Hydrox/Mg Hydrox/Simethicone (Maalox) 30 ml PO Q8H PRN; Protocol PRN Reason: Indigestion/Heartburn Stop: 09/01/17 09:06 Aspirin (Aspirin) 81 mg PO DAILY [facility] Stop: 09/01/17 10:31 Last Admin: 03/02/17 11:59 Dose: 81 mg Atorvastatin Calcium (Lipitor) 40 mg PO HS LAST Stop: 09/01/17 21:01 Last Admin: 03/02/17 20:50 Dose: 40 mg Calcium Carbonate (Tums) 500 mg PO DAILY [facility]AT PRN Reason: Protocol Stop: 09/01/17 09:16 Last Admin: 03/02/17 09:18 Dose: 500 mg Carvedilol (Coreg) 3.125 mg PO BIDWM LAST PRN Reason: Protocol Stop: 09/01/17 08:01 Last Admin: 03/02/17 15:54 Dose: 3.125 mg Clopidogrel Bisulfate (Plavix) 75 mg PO DAILY LAST Stop: 09/01/17 09:01 Last Admin: 03/02/17 08:46 Dose: 75 mg Dextrose/Water (Dextrose 50% (Syg)) 25 ml IVP AD PRN PRN Reason: Hypoglycemia Stop: 09/01/17 07:51 Fluoxetine HCl (Prozac) 40 mg PO DAILY LAST PRN Reason: Protocol Stop: 09/01/17 09:01 Last Admin: 03/02/17 09:19 Dose: 40 mg Furosemide (Lasix) 20 mg IVP BIDDIURETIC LAST Stop: 03/04/17 17:01 Gabapentin (Neurontin) 800 mg PO TID LAST Stop: 09/01/17 09:01 Last Admin: 03/02/17 20:50 Dose: 800 mg Glucagon (Glucagen) 1 mg IM ONCE PRN PRN Reason: Hypoglycemia Stop: 09/01/17 07:51 Glucose (Gluctose) 15 gm PO ONCE PRN PRN Reason: Hypoglycemia Stop: 09/01/17 07:51 Glucose (Gluctose) 30 gm PO ONCE PRN PRN Reason: Hypoglycemia Stop: 09/01/17 07:51 Heparin Sodium (Porcine) (Heparin) 4,000 unit IVP Q6HR PRN PRN Reason: SEE COMMENTS Stop: 09/01/17 13:28 Heparin Sodium (Porcine) (Heparin) 2,000 unit IVP Q6H PRN PRN Reason: SEE COMMENTS Stop: 09/01/17 13:28 Last Admin: 03/03/17 06:22 Dose: 2,000 unit Dextrose (Dextrose 5%) 1,000 mls @ 100 mls/hr IVC .Q10H PRN PRN Reason: HYPOGLYCEMIA Stop: 09/01/17 07:51 Heparin Sodium/Dextrose (Heparin 25,000 Unit/500 Ml D5w) 25,000 unit in 500 mls @ 19.686 mls/hr IVC .Q24H LAST; 10 UNIT/KG/HR PRN Reason: Protocol Stop: 09/01/17 13:31 Last Titration: 03/03/17 06:22 Dose: 16.05 unit/kg/hr, 31.6 mls/hr Insulin Detemir (Levemir) 28 unit SQ HS [facility] Stop: 09/01/17 21:01 Last Admin: 03/02/17 20:50 Dose: 28 unit Insulin Human Lispro (Humalog) 0 units SQ HS [facility] PRN Reason: Protocol Stop: 09/01/17 21:01 Last Admin: 03/02/17 20:50 Dose: 15 units Insulin Human Lispro (Humalog) 0 units SQ TIDAC [facility] PRN Reason: Protocol Stop: 09/01/17 07:52 Last Admin: 03/02/17 16:57 Dose: 6 units Labetalol HCl (Labetalol) 10 mg IVP Q6H PRN PRN Reason: Blood Pressure - High Stop: 09/01/17 06:59 Lansoprazole (Prevacid) 15 mg PO DAILY@0730 [facility] PRN Reason: Protocol Stop: 09/01/17 07:51 Last Admin: 03/02/17 09:19 Dose: 15 mg Naloxone HCl (Narcan) 0.4 mg IVP Q2MIN PRN PRN Reason: Opioid Reversal Stop: 09/01/17 06:54 Ondansetron HCl (Zofran Odt) 4 mg SL Q8HR PRN PRN Reason: Nausea And Vomiting Stop: 09/01/17 05:55 Last Admin: 03/02/17 09:49 Dose: 4 mg Oxycodone/Acetaminophen (Percocet 5/325) 1 each PO Q6HR PRN PRN Reason: Moderate to Severe Pain (4-10) Stop: 09/01/17 06:59 Last Admin: 03/03/17 06:24 Dose: 1 each Senna (Senna) 8.6 mg PO BID PRN PRN Reason: Constipation Stop: 09/01/17 08:53 Tizanidine HCl (Zanaflex) 4 mg PO TID PRN PRN Reason: MUSCLE SPASMS Last Admin: 03/02/17 20:52 Dose: 4 mg Vitamin D (Vitamin D) 1,000 unit PO DAILY [facility] Stop: 09/01/17 09:16 Last Admin: 03/02/17 09:20 Dose: 1,000 unit - Imaging and Cardiology Echo: pending - EKG Interpretation EKG results cardiology: other (12 hr tele AVG HR 80) Consult Discharge Plan - Plan Referrals: Vane Mckee CNP [Primary Care Provider] - 03/17/17 8:00 am (Please follow up as schedule...)
[2017-03-03] MEDS: Insulin LISPRO 300 UNITS/3 ML VIAL SQ SCH ×5 (11:09→21:25)
[2017-03-03] MEDS: FLUoxetine 20 MG CAPSULE PO SCH (11:50)
[2017-03-03] MEDS: Aspirin 81 MG TAB.CHEW PO SCH (11:50)
[2017-03-03] MEDS: Gabapentin 400 MG CAPSULE PO SCH ×3 (11:50→21:25)
[2017-03-03] MEDS: Cholecalciferol (D-3) 1,000 UNIT TABLET PO SCH (11:51)
[2017-03-03] MEDS: Heparin 25,000 UNIT/500 ML D5W 25,000 UNIT/500 ML BAG IVC SCH (16:01)
--- NOTE | 2017-03-03 16:31 | Electrocardiograph Report ---
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
--- NOTE | 2017-03-03 16:35 | Electrocardiograph Report ---
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
[2017-03-03] MEDS: Furosemide 40 MG/4 ML VIAL IVP SCH ×2 (18:04→18:20)
[2017-03-03] MEDS: Insulin DETEMIR 100 UNIT/ML X5UNITS SQ SCH (21:25)
[2017-03-03] MEDS: tiZANidine 4 MG TABLET PO PRN (21:27)
[2017-03-04] MEDS: *HR* OxyCODONE/APAP 5/325 TABLET PO PRN ×3 (02:02→17:55)
[2017-03-04 04:57] LABS: Calcium 8.7 mg/dL (8.6-10.3); Magnesium 1.9 mg/dL (1.6-2.6); Potassium 4.1 mEq/L (3.5-5.1)
[2017-03-04 05:04] LABS: Basophils # 0.1 K/mcL (0.0-0.2); Basophils % 0.6 %; Eosinophils # 0.2 K/mcL (0.0-0.6); Eosinophils % 1.5 %; Hematocrit 30.6 % (35.3-44.9); Immature Granulocytes % 0.8 % (0-4); Lymphocytes # 1.9 K/mcL (0.6-4.6); Lymphocytes % 15.7 %; Mean Corpuscular HGB Conc 29.4 g/dL (31.6-35.5); Mean Corpuscular Hemoglobin 26.9 pg (28.0-33.3); Mean Corpuscular Volume 91.3 fL (83.0-100.0); Mean Platelet Volume 10.1 fL (9.4-12.4); Monocytes # 1.2 K/mcL (0.0-1.3); Monocytes % 9.9 %; Neutrophils # 8.6 K/mcL (1.6-8.9); Platelet Count 315 K/mcL (140-400); Red Blood Count 3.35 M/mcL (3.82-4.97); Red Cell Distribution Width 14.7 % (11.5-14.5); Segmented Neutrophils % 71.5 %
[2017-03-04] MEDS: Heparin 25,000 UNIT/500 ML D5W 25,000 UNIT/500 ML BAG IVC SCH (06:29)
[2017-03-04] MEDS: Furosemide 40 MG/4 ML VIAL IVP SCH ×2 (08:59→17:56)
[2017-03-04] MEDS: Gabapentin 400 MG CAPSULE PO SCH ×3 (09:00→22:17)
[2017-03-04] MEDS: FLUoxetine 20 MG CAPSULE PO SCH (09:00)
[2017-03-04] MEDS: Cholecalciferol (D-3) 1,000 UNIT TABLET PO SCH (09:00)
[2017-03-04] MEDS: Insulin LISPRO 300 UNITS/3 ML VIAL SQ SCH ×7 (09:01→22:12)
[2017-03-04] MEDS: Aspirin 81 MG TAB.CHEW PO SCH (09:01)
--- NOTE | 2017-03-04 09:27 | Internal Med Progress Note ---
<Augusto Waters - Last Filed: 03/04/17 09:55> Date of Encounter: 03/04/17 Time of Encounter: 08:55 - Assessment and plan (1) CHF exacerbation Current Visit: Yes Status: Acute Assessment and plan: Secondary to noncompliance and increased sodium intake. Since having Lasix she has had a net negative fluid balance of -1.9 L. echocardiogram obtained showed left ventricular ejection fraction of 55%. Gave 40 mg IV Lasix originally and was continued on 20 mg IV twice a day At the moment of history of present illness patient's IV Lasix was reduced to 20 mg twice a day, and she has since had improvement in her kidney function Strict I/O's, daily weights. Fluid restriction to 1500 mL per day Continue current dose of 20 mg twice a day IV Lasix Qualifiers: Congestive heart failure type: unspecified congestive heart failure type Qualified Code(s): I50.9 - Heart failure, unspecified (2) COPD exacerbation Current Visit: Yes Status: Acute Assessment and plan: Patient states she does not have a history of COPD but does use oxygen at home has increased oxygen use to where she is been using a pulse 5 L at home when she used on the use as needed Continue oxygen therapy. If shortness of breath worsens consider BiPAP. Continue Levaquin IV (3) Elevated troponin Current Visit: Yes Status: Acute Assessment and plan: Most likely due to demand ischemia because of the CHF exacerbation. Patient has been complaining of chest heaviness, though states she has had improvement with diuresis. Troponins have trended 5 a reach their peak at 0.50 and has since trended downward. Cardiology was consulted and plan for left heart catheterization later today, she is currently on heparin drip. Repeat EKG continued to show no acute changes Limited echo ordered Consulted cardiology and likely [facility] today (4) FLO (acute kidney injury) Current Visit: Yes Status: Acute Assessment and plan: On her second day in the hospital patient developed acute kidney injury, her potentially nephrotoxic medications were stopped as well as a decrease in her Lasix and she has since had some improvement of her renal function. Though her lisinopril hydrochlorothiazide had been stopped, patient has been maintaining blood pressures within normal limits. As of this morning her estimated GFR was 59 with a serum creatinine 1.11. Likely source of history of present illness due to nephrotoxic medications and diuresis with Lasix. There is a planned left heart catheterization later today with contrast likely to worsen patient history of present illness. We will hold patient nephrotoxic agents Patient Lasix decreased yesterday back to 20 mg IV twice a day We will continue to monitor renal function daily (5) CAD (coronary artery disease) Current Visit: Yes Status: Acute Assessment and plan: Patient had previous CABG. She has complained of chest heaviness since admission, but since she has improvement with some diuresis. Peak troponins reached at 0.50 and since trended downward. Cardiology has been consulted and plan for left heart catheterization today, appreciate continued recommendations Plavix simvastatin aspirin Qualifiers: Coronary Disease-Associated Artery/Lesion type: unspecified vessel or lesion type [place] vs. transplanted heart: [place] heart Associated angina: angina presence unspecified Qualified Code(s): I25.10 - Atherosclerotic heart disease of [place] coronary artery without angina pectoris (6) Diabetes Current Visit: Yes Status: Acute Assessment and plan: Diabetic diet, home insulin, ISS Qualifiers: Diabetes mellitus type: type 2 Diabetes mellitus complication status: without complication Diabetes mellitus mcc insulin use: unspecified meterman insulin use status Qualified Code(s): E11.9 - Type 2 diabetes mellitus without complications (7) GERD (gastroesophageal reflux disease) Current Visit: Yes Status: Acute Assessment and plan: Resume home PPI Qualifiers: Esophagitis presence: esophagitis presence not specified Qualified Code(s) : K21.9 - Gastro-esophageal reflux disease without esophagitis (8) Hyperlipidemia Current Visit: Yes Status: Acute Assessment and plan: Resume home statin Qualifiers: Hyperlipidemia type: unspecified Qualified Code(s): E78.5 - Hyperlipidemia , unspecified (9) DVT prophylaxis Current Visit: Yes Status: Acute Assessment and plan: Patient on heparin drip - Subjective Interval history: Patient reports doing well today. She feels her breathing is better than it was just say. She is able to lie relatively flat, though is limited by the pain in her back. She reports continued have some swelling of the lower extremities, but is having some control with compression stockings. She reports having extensive family history of cardiac disease as well as personal history given previous CABG. - Constitutional Vitals: Temp Pulse Resp BP Pulse Ox 98 F 80 18 117/63 96 03/04/17 07:24 03/04/17 07:24 03/04/17 07:24 03/04/17 07:24 03/04/17 07:24 General appearance: Present: A&O X 3, no acute distress, answers questions appropriately Exam: General: Cooperative, pleasant, no acute distress, alert and oriented 3, answers questions appropriately HEENT: Normocephalic, atraumatic, Conjunctiva pink, sclera anicteric, oral mucosa moist Respiratory: No accessory muscle usage, diffuse rales on auscultation, improved from yesterday Cardiovascular: Regular rate and rhythm, S1 and S2 present, no murmurs/rubs/ gallops/clicks appreciated GI/abdominal: Nondistended, nontender, soft, normal bowel sounds, no peritoneal signs Extremities: No calf tenderness, noncyanotic, 1+ pedal edema appreciated, warm, lower extremity pulses palpable and symmetrical Neurological: Alert and oriented 3, no facial droop, no focal deficits Skin: Dry, intact, normal color Internal Medicine: Result - Labs CBC & Chem 7: 03/04/17 04:00 03/04/17 04:00 Labs: Short CBC 03/04/17 Range/Units 04:00 WBC 12.0 H (4.3-11.1) K/mcL Hgb 9.0 L (11.5-15.4) g/dL Hct 30.6 L (35.3-44.9) % Plt Count 315 (140-400) K/mcL Neutrophils # 8.6 (1.6-8.9) K/mcL BMP 03/04/17 04:00 Sodium 134 L Potassium 4.1 Chloride 90 L Carbon Dioxide 38 H BUN 27 H Creatinine 1.11 Glucose 302 H Calcium 8.7 - ABG Interpretation ABG results: PT/INR, D-dimer PT 15.9 Seconds (9.4-12.1) H 03/02/17 13:36 - Impressions Impressions Echocardiogram Limited Views 03/02/17 13:29 Impressions: LVEF 55%. Despite the use of contrast, image quality was suboptimal. Normal LV chamber size and wall thickness. Atypical septal motion consistent with post-operative status. Findings: Study Quality * Technically sub-optimal due to poor echocardiographic windows. ECG Findings * Normal sinus rhythm. Left Ventricle * LVEF 55%. Despite the use of contrast, image quality was suboptimal. * Normal LV chamber size and wall thickness. * Atypical septal motion consistent with post-operative status. Right Ventricle * Normal right ventricular structure and function. Pericardium * The pericardium appears normal. IVC * The IVC is not well evaluated. - VTE Documentation of Mechanical Device: Graduated compression elastic hosiery Consult Discharge Plan - Plan Referrals: Vane Mckee CNP [Primary Care Provider] - 03/17/17 8:00 am (Please follow up as schedule...) <Alfredo-Rubén Bartlett - Last Filed: 03/04/17 11:13> Date of Encounter: 03/04/17 - Constitutional Vitals: Temp Pulse Resp BP Pulse Ox 98 F 80 18 117/63 96 03/04/17 07:24 03/04/17 07:24 03/04/17 07:24 03/04/17 07:24 03/04/17 07:24 Internal Medicine: Result - Labs CBC & Chem 7: 03/04/17 04:00 03/04/17 04:00 Labs: Short CBC 03/04/17 Range/Units 04:00 WBC 12.0 H (4.3-11.1) K/mcL Hgb 9.0 L (11.5-15.4) g/dL Hct 30.6 L (35.3-44.9) % Plt Count 315 (140-400) K/mcL Neutrophils # 8.6 (1.6-8.9) K/mcL BMP 03/04/17 04:00 Sodium 134 L Potassium 4.1 Chloride 90 L Carbon Dioxide 38 H BUN 27 H Creatinine 1.11 Glucose 302 H Calcium 8.7 - ABG Interpretation ABG results: PT/INR, D-dimer PT 15.9 Seconds (9.4-12.1) H 03/02/17 13:36 - Impressions Impressions Echocardiogram Limited Views 03/02/17 13:29 Impressions: LVEF 55%. Despite the use of contrast, image quality was suboptimal. Normal LV chamber size and wall thickness. Atypical septal motion consistent with post-operative status. Findings: Study Quality * Technically sub-optimal due to poor echocardiographic windows. ECG Findings * Normal sinus rhythm. Left Ventricle * LVEF 55%. Despite the use of contrast, image quality was suboptimal. * Normal LV chamber size and wall thickness. * Atypical septal motion consistent with post-operative status. Right Ventricle * Normal right ventricular structure and function. Pericardium * The pericardium appears normal. IVC * The IVC is not well evaluated. - Attending Attestation I examined this patient and my medical decision-making was reviewed with the Resident Physician. I agree with the documented findings, disposition and treatment plan as described except to the extent set forth below. I have seen and examined the patient. Patient is awake and alert. Not in any distress. Denies chest pain or shortness of breath. Scheduled for [facility] today. Lungs bilaterally good air entry no wheezes or crackles. Heart S1-S2 positive. Abdomen soft nontender. No new events or complaints at this time.
--- NOTE | 2017-03-04 12:41 | Pre-Sedation Evaluation ---
Pre-sedation evaluation - Pre-sedation checklist Date of procedure: 03/04/17 Procedure: [facility] Recent Vitals: Last Vital Signs Temp 97.9 F 03/04/17 11:25 Pulse 78 03/04/17 11:25 Resp 18 03/04/17 11:25 BP 122/71 03/04/17 11:25 Pulse Ox 94 03/04/17 11:25 H&P (including ROS) documented in medical record: Yes Previous reaction to sedatives/anesthetics: No Dietary Status: NPO after Midnight Dentition: dentures removed ASA Classification *see protocol: CLASS II-Mild systemic disease Plan of Care: Pt appropriate candidate for procedure/moderate/conscious sedation
[2017-03-04 13:20] LABS: Hematocrit 32.1 % (35.3-44.9); Hemoglobin 9.8 g/dL (11.5-15.4); Mean Corpuscular HGB Conc 30.5 g/dL (31.6-35.5); Mean Corpuscular Hemoglobin 27.9 pg (28.0-33.3); Mean Corpuscular Volume 91.5 fL (83.0-100.0); Mean Platelet Volume 9.8 fL (9.4-12.4); Platelet Count 355 K/mcL (140-400); Red Blood Count 3.51 M/mcL (3.82-4.97); Red Cell Distribution Width 14.7 % (11.5-14.5)
[2017-03-04] MEDS ORDERED: Nitroglycerin 1,000 MCG/10 ML VIAL IV ONE (13:52)
[2017-03-04] MEDS ORDERED: *HR* Heparin 10,000 UNIT/10 ML VIAL ONE (13:52)
[2017-03-04] MEDS ORDERED: 0.9 % Sodium Chloride 1,000 ML ONE ×2 (13:52→14:48)
[2017-03-04] MEDS ORDERED: *HR* FentaNYL (PF) 100 MCG/2 ML VIAL ONE (14:47)
[2017-03-04] MEDS ORDERED: *HR* Midazolam HCl 2 MG/2 ML VIAL ONE (14:47)
[2017-03-04] MEDS ORDERED: Tirofiban 12.5 MG/250ML 12.5 MG/250 ML BAG ONE (15:22)
--- NOTE | 2017-03-04 16:05 | Invasive Diagnostic Lab Proc ---
Name: Dahlia Fitzpatrick Date of Study: 03/04/2017 Date: 1950 Ht: 64.2in Medical Record#: [id number] Age: 66 Wt: 216.05lb Gender: Female BSA: 2.03 Order #: [id number] BMI: 36.89 Physicians Procedure Physician: Leia Fernández MD Referring MD: Referring MD: Staff Name Position Time In Rosalinda York RN Hot Car Operator 02:33 PM Suzy Cristobal RT (R) Scrub 02:33 PM Eulalia Lombardi RT Monitor 02:34 PM Indications Indication Non-Stemi Procedures Performed Procedure L HRT ARTERY/VENTRICLE ANGIO PRQ CARDIAC ANGIOPLAST 1 ART Pre-Procedure Checklist Informed consent is complete signed and on chart. H&P is on chart. ID band is on and ID verified with patient. Patient NPO for procedure The procedure was described for the patient and questions were answered. Blood Pressure: 117/63 ECG is on chart. Rhythm: NSR Plan of Care Patient will tolerate the procedure without complications. Adequate level of comfort will be maintained. Hemodynamics will remain stable Patient will recover from procedure without complications. Respiratory function will be maintained. Cardiac rhythm will remain stable. Patient temperature will be maintained. Patient and/or family have verbalized understanding of the procedure. Patient Education Chief Complaint/Reason for Test: Cardiac Cath Developmental Category: Geriatric (65+ years) Developmentally Appropriate for Age: Yes Learning Barriers: None Education Needs: Procedure Education Method: Verbal Information Taught: Cardiac Cath Educational Evaluation: Able to repeat information Intravenous Access Time IV Size Location DC'd Fluid/Drip Rate Units RN 02:30 PM 20g 1 03/17" Patent On Arrival Lt Arm 0.9NaCl 25 ml/hr Rosalinda York RN Allergies codeine Acetaminophen Vital Signs Time BP (mmHg) HR (bpm) O2 Sat. RR (bpm) LOC 02:30 PM 117 / 63 80 96 % 21 5 = Fully awake and oriented or at pre-proc level 02:48 PM / % 5 = Fully awake and oriented or at pre-proc level 02:48 PM / % 4 = Oriented but drowsy 02:43 PM 168 / 77 89 95 % 14 02:47 PM 166 / 94 88 99 % 35 02:52 PM 166 / 90 91 98 % 16 02:57 PM 155 / 93 89 99 % 16 03:02 PM 172 / 91 93 96 % 26 03:07 PM 163 / 91 91 100 % 35 03:12 PM 160 / 83 90 100 % 15 03:17 PM 162 / 85 90 100 % 16 03:22 PM 163 / 83 91 100 % 18 03:27 PM 163 / 84 90 100 % 17 03:32 PM 149 / 82 90 100 % 48 03:37 PM 163 / 85 88 100 % 20 03:42 PM 160 / 87 90 100 % 23 03:47 PM 162 / 79 89 100 % 30 Procedural Medications Time Medication Dose Units Method Given By 02:46 PM Oxygen 2 L/min nasal cannula Rosalinda York RN 02:49 PM Versed 1 mg Intravenous Rosalinda York RN 02:49 PM Fentanyl 50 mcg Intravenous Rosalinda York RN 02:53 PM Lidocaine 2% 10 ml Subcutaneous Leia Fernández MD 03:25 PM Aggrastat Bolus: 50 ml Intravenous Rosalinda York RN 03:25 PM Aggrastat 12.5mg/250ml 18 ml Intravenous Rosalinda York RN 03:27 PM Heparin 3500 units Intravenous Rosalinda York RN ASA Classification: CLASS II- Mild systemic disease (i.e. well-controlled diabetes, hypertension, asthma, cigarette smoking) Aimee Score Preprocedure Postprocedure Activity 2- Moves 4 extremities sustained head lift Activity 2- Moves 4 extremities sustained head lift Circulation 2- SBP +/= 20 points of pre-anesthetic level Circulation 2- SBP +/= 20 points of pre-anesthetic level Consciousness 2- Awake and alert oriented x 3 Consciousness 2- Awake and alert oriented x 3 O2 Saturation 2- Able to maintain O2 satruation of 92% on room air O2 Saturation 2- Able to maintain O2 satruation of 92% on room air Respiratory 2- Able to deep breathe and cough well Respiratory 2- Able to deep breathe and cough well Total Score 10 Total Score 10 Contrast Agent: Isovue Diagnostic Contrast: 260 ml Total Contrast: 260 ml Fluoro Dose: 1722 mGy Activated Clotting Time Time Seconds to Clot 03:26 PM 182 Procedure Log Time Note Enter By 02:31 PM Pt arrived to [employer] 2 at 14:31 [facility] 02:33 PM Physician arrived 14:33 [facility] 02:33 PM Solitario and melonie completed [facility] 02:33 PM Sign in performed according to hospital policy. [facility] 02:33 PM Procedure start 14:33 [email or web address] 02:33 PM Rosalinda York RN Position: Hot Car Operator Time in: 14:33 [email or web address] 02:34 PM Suzy Cristobal RT (R) Position: Scrub Time in: 14:33 [email or web address] 02:34 PM Eulalia Lombardi RT Position: Monitor Time in: 14:34 [email or web address] 02:34 PM Patient charges- Angio tray pack, Navilyst 3mm J, Pulse Oximetry and [facility] tubing and [facility] PM Case Delayed No [email or web address] 02:41 PM ASA Class CLASS II- Mild systemic disease (i.e. well-controlled diabetes, hypertension, asthma, cigarette smoking) [email or web address] 02:41 PM CathStat 02:42 PM Vitals capture started with the following parameters, Patient=Adult, Interval=5 min, Initial Wzraldfl=111 mmHg, Deflation Rate=5 mmHg, Cuff placed on Right Leg 02:43 PM HR=89 bpm, GUEQ=768/77 mmhg, SpO2=95.0 %, Resp=14 B/min 02:46 PM Time: 14:46 Oxygen on at 2 L/min per nasal cannula by Rosalinda York RN 02:47 PM HR=88 bpm, DOGV=405/94 mmhg, SpO2=99.0 %, Resp=35 B/min 02:48 PM Time: 14:48 Patient comfortable and pain free: Yes 02:48 PM Time: 14:48LOC: 5 = Fully awake and oriented or at pre-proc level all 02:49 PM Time: 14:49 Versed 1 mg Intravenous Given by Rosalinda York RN 02:49 PM Time: 14:49 Fentanyl 50 mcg Intravenous Given by Rosalinda York RN 02:52 PM HR=91 bpm, BFFJ=467/90 mmhg, SpO2=98.0 %, Resp=16 B/min 02:53 PM Clinical Presentation: Non-STEMI 02:53 PM Time out performed according to hospital policy 02:55 PM Time: 14:53 10 ml Lidocaine 2% to right groin Subcutaneous Given by Leia Fernández MD 02:57 PM Micro-Introducer Kit utilized for sheath placement 02:57 PM HR=89 bpm, DLKX=303/93 mmhg, SpO2=99.0 %, Resp=16 B/min 02:57 PM Bolus angiogram of right Femoral complete: 4 ml/sec for a total of 7 mls [email or web address] 03:00 PM Access obtained by percutaneous puncture. 6Fr 10cm Terumo [place] sheath placed in right Femoral artery. [id number] [email or web address] 03:00 PM 5Fr FL 4 catheter inserted over the wire DN [email or web address] 03:00 PM wire removed [email or web address] 03:00 PM Recorded Pressure: Ao, HR=90, Condition=Condition 1 (Aorta) Ao 141/87/112 03:01 PM LCA angiography performed in multiple views. [email or web address] 03:01 PM Catheter removed [email or web address] 03:01 PM 5Fr FR 4 catheter inserted over the wire [facility] [email or web address] 03:02 PM wire removed [email or web address] 03:02 PM RCA angiography performed in multiple views. [email or web address] 03:02 PM Recorded Pressure: Ao, HR=93, Condition=Condition 1 (Aorta) Ao 162/85/120 03:02 PM HR=93 bpm, RJGQ=678/91 mmhg, SpO2=96.0 %, Resp=26 B/min 03:03 PM Time: 14:48LOC: 4 = Oriented but drowsy [email or web address] 03:03 PM Time: 14:48 Patient comfortable and pain free: Yes [email or web address] 03:04 PM SVG to the LAD angio performed in multiple views. [email or web address] 03:07 PM HR=91 bpm, KZXP=187/91 mmhg, AcP3=564.0 %, Resp=35 B/min 03:08 PM SVG to the RPDA angio performed in multiple views. [email or web address] 03:11 PM Catheter removed [email or web address] 03:11 PM 5Fr MPA1 catheter inserted over the wire [id number] [email or web address] 03:12 PM HR=90 bpm, MOVD=620/83 mmhg, AlP0=954.0 %, Resp=15 B/min 03:17 PM HR=90 bpm, TVUO=180/85 mmhg, GnA2=928.0 %, Resp=16 B/min 03:18 PM wire reinserted catheter removed tsites 03:18 PM 5Fr IM catheter inserted over the wire [id number] tsites 03:20 PM Catheter removed tsites 03:21 PM PCI Status Urgent tsites 03:22 PM PCI Indication: PCI for high risk Non-STEMI or unstable angina tsites 03:22 PM HR=91 bpm, JFRC=291/83 mmhg, ZyP8=980 %, Resp=18 B/min 03:22 PM Coronary Dominance: right tsites 03:22 PM Lesion found in Proximal LAD. Pre Stenosis: 100 Pre SHELLI Flow: tsites 03:23 PM Lesion found in Proximal RCA. Pre Stenosis: 100 Pre SHELLI Flow: tsites 03:23 PM Lesion found in Distal Circumflex. Pre Stenosis: 80 Pre SHELLI Flow: tsites 03:23 PM Lesion found in 1st Marginal. Pre Stenosis: 70 Pre SHELLI Flow: tsites 03:23 PM Proximal Left Anterior Descending Coronary Artery with 100% stenosis. If graft is supplying this territory, 0 % stenosis. tsites 03:23 PM Circumflex, Obtuse Marginal, Left Posterior Descending, and Left Posterolateral Coronary Arteries with 80 % stenosis. If graft is supplying this area, 0 % stenosis tsites 03:23 PM Right Coronary, Right Posterior Descending Arteries with Right Posterolateral and Acute Marginal branches with 100. % stenosis. If graft is supplying this area, 0 % stenosis tsites 03:24 PM ACT drawn tsites 03:24 PM 6Fr XB LAD 3.5 [place] Bright-Tip guide catheter was used to cannulate the PCI vessel successfully. reused? No tsites 03:24 PM .014 [place]ielder 182cm guide wire across target lesion- successful. reused? No tsites 03:24 PM Inflation device was opened. tsites 03:25 PM Time: 15:25 Aggrastat Bolus: 50 ml Intravenous Given by Rosalinda York RN [place] pump tsites 03:25 PM Time: 15:25 Aggrastat 12.5mg/250ml 18 ml Intravenous Given by Rosalinda York RN [place] pump tsites 03:26 PM At 15:26 the ACT was 182 seconds. tsites 03: PM Time: 15:27 Heparin 3500 units Intravenous Given by Rosalinda York RN tsites 03:27 PM HR=90 bpm, ELFS=489/84 mmhg, TcS1=224 %, Resp=17 B/min 03:28 PM 2.0 mm x 12 mm Emerge Monorail balloon across target lesion- successful. reused? No tsites 03:31 PM Balloon inflated @ 10 rg for 15 seconds tsites 03:31 PM Balloon inflated @ 12 rg for 8 seconds tsites 03:32 PM Balloon inflated @ 14 rg for 12 seconds tsites 03:32 PM Balloon inflated @ 14 rg for 10 seconds tsites 03:32 PM HR=90 bpm, XMBV=300/82 mmhg, GgX4=562 %, Resp=48 B/min 03:32 PM Recorded Pressure: Ao, HR=91, Condition=Condition 1 (Aorta) Ao 124/75/98 03:33 PM Balloon inflated @ 14 rg for 10 seconds tsites 03:37 PM HR=88 bpm, SLDB=925/85 mmhg, PkM8=021 %, Resp=20 B/min 03:38 PM Balloon catheter removed intact. tsites 03:42 PM wire reinserted catheter removed tsites 03:42 PM 5Fr Pigtail catheter inserted over the wire DNC tsites 03:42 PM Catheter selectively placed in left ventricle tsites 03:42 PM HR=90 bpm, IPTO=176/87 mmhg, DoP6=674 %, Resp=23 B/min 03:42 PM EDP measured tsites 03:43 PM Recorded Pressure: LV, HR=89, Condition=Condition 1 (Left Ventricle) LV 154/19/25 03:43 PM Recorded Pressure: LV, Ao, HR=89, Condition=Condition 1 (Left Ventricle) LV 154/18/21, (Aorta) Ao 146/68/103 03:44 PM Procedure completed at 15:44 tsites 03:45 PM Sign out completed: Radiation Dose 1722 mGy Fluoro Time: 21.2 Isovue 370 - 200ml contrast 260 ml given by Leia Fernández MD. Complications: NoneCardiac Rehab Consult needed: NoConfirmed administered medications: Yes tsites 03:45 PM Isovue 370 - 200ml,2 Bottle(s) used. tsites 03:45 PM Arterial sheath pulled, Mynx closure device used and was Successful S/N. tsites 03:45 PM Estimated Blood Loss: minimal tsites 03:45 PM Post ECG NSR tsites 03:46 PM Post Blood Pressure 160/87 tsites 03:46 PM 15:46 Post Pulses Bilateral DP & PT 2+ tsites 03:46 PM Information taught Cardiac Cath, PCI, and Mynx tsites 03:46 PM Education needs Procedure, Plan of Care, and Responsibilities of Patient in Care tsites 03:46 PM Learning barriers :None tsites 03:46 PM Education Methods Verbal tsites 03:46 PM Education evaluation Able to repeat information tsites 03:46 PM Site status No bleeding/hematoma - Rt Groin as reported by Suzy Cristobal RT (R) at 15:46 tsites 03:46 PM Opsite applied tsites 03:47 PM aggrastat dc'd tsites 03:47 PM HR=89 bpm, ZBNT=946/79 mmhg, FkS7=814.0 %, Resp=30 B/min 03:50 PM Report given to prerna WALLER Pt taken to 2A Room #34. 15:50 tsites 03:50 PM Plavix, Effient or Brilinta given No tsites 03:50 PM Delay to floor No tsites 03:50 PM Patient out of room: 15:50 tsites 03:50 PM Family placed in consult room. tsites Complications Complication None Hemodynamics Pressures Site Systolic/A Wave Diastolic/V Wave Mean AO 141 87 112 AO 162 85 120 AO 124 75 98 LV 154 19 25 LV 154 18 21 AO 146 68 103 Post Procedure Information Blood Pressure: 160/87 mmHg Rhythm: NSR Post procedural instructions were given Closure Device Time Device Success/Fail 03/04/2017 3:51:00 PM MynxGrip Successful Site Checks Time Location Status Staff Sheath In? Note 03:46 PM Rt Groin No bleeding/hematoma Suzy Cristobal RT (R) Pulses Time Site Pre-Procedure Post-Procedure Note 03/04/2017 2:30:00 PM Bilateral DP 2+ 03/04/2017 2:30:00 PM Bilateral PT 1+ 03/04/2017 2:30:00 PM Bilateral radial 2+ 3:46:00 PM Bilateral DP & PT 2+ Updated by Celine Frye RT (R) on 03/04/2017 3:58:18 PM Celine Frye RT electronically signed on 03/04/2017 3:59:58 PM with status of Final
--- NOTE | 2017-03-04 16:07 | Event Note ---
Date of Encounter: 03/04/17 Time of Encounter: 16:03 - Cardiology Event Note LHC with lesions not amendable to PCI. Recommend medical management, ASA, Plavix , Statin, BB. Continue diuresis. Na and fluid restriction diet. Recommend transitioning to PO lasix maintenance dose prior to discharge. Cardiology signing off. Reconsult PRN. Follow-up as outpt in 3-4 weeks. Will coordinate.
[2017-03-04] MEDS ORDERED: Insulin DETEMIR 100 UNIT/ML X5UNITS SQ SCH (21:00)
[2017-03-04] MEDS: tiZANidine 4 MG TABLET PO PRN (22:17)
[2017-03-05 04:42] LABS: Basophils # 0.1 K/mcL (0.0-0.2); Basophils % 0.6 %; Eosinophils # 0.1 K/mcL (0.0-0.6); Eosinophils % 0.5 %; Hematocrit 28.7 % (35.3-44.9); Hemoglobin 8.8 g/dL (11.5-15.4); Immature Granulocytes % 0.6 % (0-4); Lymphocytes # 1.2 K/mcL (0.6-4.6); Lymphocytes % 11.2 %; Mean Corpuscular HGB Conc 30.7 g/dL (31.6-35.5); Mean Corpuscular Hemoglobin 27.8 pg (28.0-33.3); Mean Corpuscular Volume 90.5 fL (83.0-100.0); Mean Platelet Volume 9.9 fL (9.4-12.4); Monocytes # 1.1 K/mcL (0.0-1.3); Monocytes % 10.4 %; Platelet Count 325 K/mcL (140-400); Red Blood Count 3.17 M/mcL (3.82-4.97); Red Cell Distribution Width 14.8 % (11.5-14.5); Segmented Neutrophils % 76.7 %
[2017-03-05] MEDS: *HR* OxyCODONE/APAP 5/325 TABLET PO PRN ×2 (04:51→12:52)
[2017-03-05 04:53] LABS: BUN/Creatinine Ratio 23 (6-26); Blood Urea Nitrogen 24 mg/dL (8-23); Calcium 8.8 mg/dL (8.6-10.3); Carbon Dioxide 39 mEq/L (23-29); Chloride 91 mEq/L (98-107); Glucose 332 mg/dL (70-105); Osmolality,Calculated 295 (280-300); Potassium 4.6 mEq/L (3.5-5.1); Sodium 134 mEq/L (136-145); eGFR For African Americans > 60 (> 60); eGFR For Non-African Americans 53 (> 60)
[2017-03-05] MEDS: Insulin LISPRO 300 UNITS/3 ML VIAL SQ SCH ×4 (08:24→12:19)
[2017-03-05] MEDS: Gabapentin 400 MG CAPSULE PO SCH (08:25)
[2017-03-05] MEDS: Aspirin 81 MG TAB.CHEW PO SCH (08:25)
[2017-03-05] MEDS: Cholecalciferol (D-3) 1,000 UNIT TABLET PO SCH (08:26)
[2017-03-05] MEDS: FLUoxetine 20 MG CAPSULE PO SCH (08:26)
--- NOTE | 2017-03-05 12:14 | Discharge Summary ---
Date of Encounter: 03/05/17 Time of Encounter: 09:10 - Discharge Diagnosis (1) CHF exacerbation Priority: Primary Status: Acute Comments: Acute exacerbation of diastolic CHF with LVEF 55% - symptoms now improved Continue Lasix, Coreg, Lisinopril, Plavix, Aspirin, Statin Echocardiogram - LVEF 55% with normal LV size and function [facility] - severe coronary artery disease with lesions not amenable to PCI Patient states she feels better we will should go home today Advised to return if symptoms worsen Follow up with PCP and cardiology Qualifiers: Congestive heart failure type: unspecified congestive heart failure type Qualified Code(s): I50.9 - Heart failure, unspecified (2) CAD (coronary artery disease) Priority: Primary Status: Acute Comments: Coronary artery disease status post CABG - with severe coronary artery disease seen on [facility] yesterday PTCA to OM1 and CIRC lesion unsuccessful, 2 of 3 patent bypass grafts Continue optimal medical management with Aspirin, Plavix, Statin, BB Echocardiogram - LVEF 55%, normal LV size and thickness Qualifiers: Coronary Disease-Associated Artery/Lesion type: unspecified vessel or lesion type [place] vs. transplanted heart: [place] heart Associated angina: angina presence unspecified Qualified Code(s): I25.10 - Atherosclerotic heart disease of [place] coronary artery without angina pectoris (3) Elevated troponin Priority: Primary Status: Acute Comments: Troponin peaked at 0.5, down trended to 0.41 - probably due to an STEMI demand ischemia - currently asymptomatic [facility] done - lesions not amenable to PCI, recommend optimal medical management including Aspirin, Plavix, Statin, BB (4) COPD exacerbation Priority: Primary Status: Acute Comments: Acute exacerbation of COPD - now resolved Continue DuoNeb breathing treatment at home as needed, O2 via NC (5) FLO (acute kidney injury) Priority: Primary Status: Acute Comments: Acute kidney injury - likely CHF and Lasix use - now resolved Repeat labs as outpatient (6) Diabetes Priority: Primary Status: Chronic Comments: Type 2 diabetes mellitus, insulin-dependent, hyperglycemia Continue home dose of Lantus, insulin aspart Qualifiers: Diabetes mellitus type: type 2 Diabetes mellitus complication status: without complication Diabetes mellitus stoper insulin use: unspecified care home insulin use status Qualified Code(s): E11.9 - Type 2 diabetes mellitus without complications (7) Hyperlipidemia Priority: Primary Status: Chronic Comments: Continue statin Qualifiers: Hyperlipidemia type: unspecified Qualified Code(s): E78.5 - Hyperlipidemia , unspecified - Discharge Medications Prescriptions: Aspirin 81 mg PO DAILY #30 tab.chew Atorvastatin [Lipitor] 40 mg PO HS #30 tablet Carvedilol [Coreg] 3.125 mg PO BID #30 tablet Furosemide [Lasix] 20 mg PO DAILY #30 tablet Pantoprazole Sodium [Protonix] 20 mg PO BID #30 tablet. Home Medications: Amoxicillin/Clavulanate [Augmentin] 875 mg PO BID 03/02/17 [History] Calcium Carbonate/Vitamin D3 [Calcium 600-Vit D3 400 Tablet] 1 each PO DAILY [History] Clopidogrel [Plavix] 75 mg PO DAILY 03/02/17 [History] FLUoxetine HCl [Prozac] 40 mg PO DAILY 03/02/17 [History] Gabapentin [Neurontin] 800 mg PO TID 03/02/17 [History] HYDROcodone/Acet 10/325 mg [[place] 10-325 mg] 1 tab PO BID PRN 03/02/17 [History] Insulin ASPART [Novolog Flexpen] 100 unit SQ ACHS 03/02/17 [History] Insulin Glargine [Lantus] 28 unit SQ HS 03/02/17 [History] Lisinopril [Zestril] 10 mg PO DAILY 03/02/17 [History] Magnesium Hydroxide [Milk of Magnesia] 100 ml PO DAILY PRN 03/02/17 [History] Sennosides [Senna] 8.6 mg PO BID PRN 03/02/17 [History] Tizanidine HCl [Zanaflex] 4 mg PO TID PRN 03/02/17 [History] hydroCHLOROthiazide [Hydrochlorothiazide] 25 mg PO DAILY 03/02/17 [History] Aspirin 81 mg PO DAILY #30 tab.chew 03/05/17 [Rx] Atorvastatin [Lipitor] 40 mg PO HS #30 tablet 03/05/17 [Rx] Carvedilol [Coreg] 3.125 mg PO BID #30 tablet 03/05/17 [Rx] Furosemide [Lasix] 20 mg PO DAILY #30 tablet 03/05/17 [Rx] Pantoprazole Sodium [Protonix] 20 mg PO BID #30 tablet. 03/05/17 [Rx] Allergies/Adverse Reactions: 3 Allergy/AdvReac Type Severity Reaction Status Date / Time codeine AdvReac Nausea Verified 10/01/15 10:27 Procedures/tests Complete & Pending: Procedures Performed prior 72 hours Category Date Time Status CL Cardiac Catheterization [CL] Routine Histology Teacher 03/04/17 09:06 Completed ECG 12 lead ECG [ECG] Routine Y 03/02/17 14:25 Completed EKG [ECG 12 lead ECG] [ECG] Stat Y 03/02/17 13:28 Completed EV limited echo w enhance Routine Y 03/02/17 13:29 Completed Date of admission: 03/02/17 05:54 Primary care physician: SAMANTHA Reilly Consults: 03/02/17 13:32 Consult to Cardiology [CONS] Routine Comment: Consulting Provider: Cardiology Marylin Reason for Consult: Elevated Troponin Time Notified: 13:32 Call Completed: Yes 03/03/17 09:05 Consult to Cardiac Rehabilitation-Phase1 [CONS] Routine Comment: Reason for Consult: NSTEMI Call Completed: No Anticipated date of discharge: 03/05/17 - Patient Status Disposition: Home Health Service Condition: Good Functional capacity at discharge: uses cane/walker Overall status at discharge: patient is back to baseline - Discharge Instructions Instructions: Heart Failure (DC) Follow Up With: Vane Mckee CNP [Primary Care Provider] - 03/17/17 8:00 am (Please follow up as schedule...) Leia Fernández [Partnered Physician] - Additional Instructions: - Continue all meds as per discharge instructions - Return if symptoms worsen - Follow-up with PCP and cardiology - Repeat CBC and BMP in 1 week - Diet and Activity Activity: increase activity as tolerated, resume usual activities as tolerated, wear oxygen at all times Diet: low fat, low cholesterol, low salt diet Hospital course: Ms. Fitzpatrick is a 66 year old female with past medical history of CHF, COPD, coronary artery disease status post CABG, hyperlipidemia, GERD and hypertension. Patient presented to the ED with complaints of shortness of breath and bilateral leg worsening edema. Patient stated that she had been non- compliant with her fluid and sodium restricted diet. Patient was admitted for acute exacerbation of CHF. Patient was started on IV Lasix and also continued on Coreg. We also continued aspirin and statin. Patient was found to have elevated troponin. We started IV heparin as per protocol We did consult cardiology. LHC was recommended. Patient underwent LHC, and was found to have severe coronary artery disease. Lesions were not amenable to PCI. Advised optimal medical management with aspirin, Plavix, statin and beta gerardo. Continue Lasix on discharge as well. Patient's symptoms are now resolved. She denies chest pain or shortness of breath. Seems to be back to baseline. She is doing well on 2 L O2 via nasal cannula. Tolerating oral diet well. Ambulating with assistance. Advised follow-up with cardiology in about 3-4 weeks. Advised to follow-up with PCP. Advised recurrent symptoms worsen. No other acute events or complications during her stay in the hospital. Patient was explained about her condition and plan of care in detail. She understood and agreed. No unanswered questions. Patient states she feels better and was to go home today. States she will follow up with her PCP and cardiology. - Time Spent with Patient Total time spent providing and/or coordinating discharge services: Greater than 30 minutes - Constitutional Vitals: Temp Pulse Resp BP Pulse Ox 98.1 F 92 15 136/71 95 03/05/17 08:00 03/05/17 08:00 03/05/17 08:00 03/05/17 08:00 03/05/17 08:00 General appearance: Present: cooperative, A&O X 3, no acute distress, obese, answers questions appropriately - Head Head exam: Present: atraumatic - ENT ENT exam: Present: mucous membranes moist - Respiratory Respiratory exam: Present: CTAB. Absent: accessory muscle use, rales, respiratory distress, rhonchi, wheezes, tachypnea - Cardiovascular Cardiovascular exam: Present: RRR, +S1, +S2 - GI/Abdominal GI/Abdominal exam: Present: soft. Absent: distended, firm, guarding, tenderness - Extremities Exam Extremities exam: Present: pedal edema (Mild bilateral), radial pulses palpable and symmetrical. Absent: calf tenderness, cyanotic - Neurological Exam Neurological exam: Present: alert, oriented X3, no focal deficits. Absent: facial droop, speech deficit - VTE Documentation of Mechanical Device: Graduated compression elastic hosiery
--- NOTE | 2017-03-05 12:28 | Physician Discharge Referral ---
Home Health/Hosp Referral Info Transfer to: Home Health Provider in Charge Post Discharge: PCP - Diagnosis (1) CHF exacerbation Priority: Primary Status: Acute (2) CAD (coronary artery disease) Priority: Primary Status: Acute (3) COPD exacerbation Priority: Primary Status: Acute (4) Elevated troponin Priority: Primary Status: Acute (5) FLO (acute kidney injury) Priority: Primary Status: Acute (6) Diabetes Priority: Primary Status: Chronic (7) Hyperlipidemia Priority: Primary Status: Chronic - Respiratory Orders Oxygen / L per min (2 L/m) Smoking Cessation: Smoking cessation has been advised. For more information, call the [place] Tobacco Quit Line at 6-217-NZMV-NOW. - Diet/Nutrition Diet/Nutrition Orders: No Added Salt (SYED), Cardiac - Activity Activity Orders: Ambulate, Walker - Services Needed Following services are medically necessary services: Nursing, Physical Therapy, Occupational Therapy - Transfer Medications Prescriptions: Aspirin 81 mg PO DAILY #30 tab.chew Atorvastatin [Lipitor] 40 mg PO HS #30 tablet Carvedilol [Coreg] 3.125 mg PO BID #30 tablet Furosemide [Lasix] 20 mg PO DAILY #30 tablet Pantoprazole Sodium [Protonix] 20 mg PO BID #30 tablet.dr Home Medications: Amoxicillin/Clavulanate [Augmentin] 875 mg PO BID 03/02/17 [History] Calcium Carbonate/Vitamin D3 [Calcium 600-Vit D3 400 Tablet] 1 each PO DAILY [History] Clopidogrel [Plavix] 75 mg PO DAILY 03/02/17 [History] FLUoxetine HCl [Prozac] 40 mg PO DAILY 03/02/17 [History] Gabapentin [Neurontin] 800 mg PO TID 03/02/17 [History] HYDROcodone/Acet 10/325 mg [[place] 10-325 mg] 1 tab PO BID PRN 03/02/17 [History] Insulin ASPART [Novolog Flexpen] 100 unit SQ ACHS 03/02/17 [History] Insulin Glargine [Lantus] 28 unit SQ HS 03/02/17 [History] Lisinopril [Zestril] 10 mg PO DAILY 03/02/17 [History] Magnesium Hydroxide [Milk of Magnesia] 100 ml PO DAILY PRN 03/02/17 [History] Sennosides [Senna] 8.6 mg PO BID PRN 03/02/17 [History] Tizanidine HCl [Zanaflex] 4 mg PO TID PRN 03/02/17 [History] hydroCHLOROthiazide [Hydrochlorothiazide] 25 mg PO DAILY 03/02/17 [History] Aspirin 81 mg PO DAILY #30 tab.chew 03/05/17 [Rx] Atorvastatin [Lipitor] 40 mg PO HS #30 tablet 03/05/17 [Rx] Carvedilol [Coreg] 3.125 mg PO BID #30 tablet 03/05/17 [Rx] Furosemide [Lasix] 20 mg PO DAILY #30 tablet 03/05/17 [Rx] Pantoprazole Sodium [Protonix] 20 mg PO BID #30 tablet.dr 03/05/17 [Rx] Allergies/Adverse Reactions: 3 Allergy/AdvReac Type Severity Reaction Status Date / Time codeine AdvReac Nausea Verified 10/01/15 10:27 Certification: Further, I certify that my clinical findings support that this patient is homebound (i.e. absences from home require considerable and taxing effort and are for medical reasons or jew services or infrequently or short duration when for other reasons) because: Homebound Reason: Patient requires assistance of a person or device to safely leave home Attestation: My signature below is to certify that this patient is under my care and that I, or nurse practitioner, or a physician's magistrate assistant working with me, has a face-to -face encounter with this patient.
[2017-03-05 14:20] VITALS: BP 130/72
== END 2017-03-05 13:35 | disposition home health service (06) | DRG 287 ==
LOC: 2ANU
PROVIDERS: ADMIT Family Medicine; ATTEND Internal Medicine

== ENCOUNTER 2018-02-25 20:31 | Inpatient (IN) ==
[2018-02-25] MEDS ORDERED: OXYCODONE Oral CONC 10 MG/0.5 ML ORAL.SYG SL PRN (23:36)
[2018-02-26] MEDS ORDERED: OXYCODONE Oral CONC 10 MG/0.5 ML ORAL.SYG SL ONE (02:43)
[2018-02-26] MEDS ORDERED: Acetaminophen IV 500 MG/50 ML INFUS..BTL IVPB ONE (02:44)
[2018-02-26] MEDS ORDERED: Naloxone 0.4 MG/ML INJ IVP PRN (05:22)
[2018-02-26] MEDS ORDERED: D5% in Water 1,000 ML IVC PRN (05:26)
[2018-02-26] MEDS ORDERED: Dextrose Gel 15 GM/37.5 ML TUBE PO PRN ×2 (05:26)
[2018-02-26] MEDS ORDERED: *HR* Dextrose 50 % in Water (Syg) 50 ML SYRINGE IVP PRN (05:26)
[2018-02-26] MEDS ORDERED: 0.9 % Sodium Chloride 1,000 ML IVC SCH (05:30)
--- NOTE | 2018-02-26 05:39 | Internal Med History&Physical ---
Date of Encounter: 02/26/18 Time of Encounter: 03:15 Internal Medicine - H&P: HPI Chief complaint: Fall Admitted From: Home Plans for Post Hospital Care: Home History of present illness: Ms. Fitzpatrick is a 67 year old female with past medical history significant for CAD with stents x2 and CABG, hypertension, hyperlipidemia, CHF, COPD, diabetes, GERD, chronic back pain, thyroid disease, depression, and anxiety who presents from [facility] ER following mechanical fall stating she slipped when walking into a store and fell onto her left side. She admits to striking her head but denies loss of consciousness. She complains of pain to left arm and left hip following fall but denies any other injury. She is unsure if she is able to bear weight with the affected extremities as she had not attempted due to pain. Currently denies any headache, chest pain, shortness of breath, abdominal pain, numbness, tingling, bowel or bladder changes. CT of upper and lower extremities from sending facility shows left proximal humerus fracture extending through the surgical neck and left superior and inferior pubic rami fracture. CT of head and cervical spine were negative. Pain is alleviated with immobilization and pain medication, movement exacerbates pain. Left arm was placed into sling at sending facility. Patient reports history of hip surgery at outlying facility around 18 months ago to affected hip. Sending provider spoke with production [employer] orthopedic Dr Juarez prior to transfer. Follows regularly with PCP, cardiology, and pain management. Recently was referred to ict analyst due to worsening kidney function. Past Med Surg Social Fam HX - Past Medical History Medical history: arthritis, CHF, COPD, coronary artery disease, diabetes, GERD, glaucoma, hyperlipidemia, hypertension, osteoporosis, thyroid disease, other Additional medical history: Chronic Back Pain Psychiatric history: anxiety, depression - Past Surgical History Surgical History: , cholecystectomy, coronary bypass (CABG), hysterectomy Additional surgical history: left arm surgery. left hip surgery - Social History Smoking Status: Never smoker Smokeless Tobacco Status: No Alcohol use: none Drug use: none - Family History Mother History Unknown: Yes Living Status: Hx Family Cardiac Disorders: Yes Father History Unknown: Yes Living Status: Hx Family Cardiac Disorders: Yes Hx Family Cancer: Yes (bone cancer) Internal Medicine - H&P: Meds Amoxicillin/Clavulanate [Augmentin] 875 mg PO BID 03/02/17 [History] Calcium Carbonate/Vitamin D3 [Calcium 600-Vit D3 400 Tablet] 1 each PO DAILY 03/02/17 [History] Clopidogrel [Plavix] 75 mg PO DAILY 03/02/17 [History] FLUoxetine HCl [Prozac] 40 mg PO DAILY 03/02/17 [History] Gabapentin [Neurontin] 800 mg PO QID 03/02/17 [History] HYDROcodone/Acet 10/325 mg [[place] 10-325 mg] 1 tab PO BID PRN 03/02/17 [History] Insulin ASPART [Novolog Flexpen] 100 unit SQ ACHS 03/02/17 [History] Insulin Glargine [Lantus] 35 unit SQ HS 03/02/17 [History] Lisinopril [Zestril] 10 mg PO DAILY 03/02/17 [History] Magnesium Hydroxide [Milk of Magnesia] 100 ml PO DAILY PRN 03/02/17 [History] Sennosides [Senna] 8.6 mg PO BID PRN 03/02/17 [History] Tizanidine HCl [Zanaflex] 4 mg PO TID PRN 03/02/17 [History] hydroCHLOROthiazide [Hydrochlorothiazide] 25 mg PO DAILY 03/02/17 [History] Aspirin 81 mg PO DAILY #30 tab.chew 03/05/17 [Rx] Atorvastatin [Lipitor] 40 mg PO HS #30 tablet 03/05/17 [Rx] Carvedilol [Coreg] 3.125 mg PO BID #30 tablet 03/05/17 [Rx] Furosemide [Lasix] 20 mg PO DAILY #30 tablet 03/05/17 [Rx] Pantoprazole Sodium [Protonix] 20 mg PO BID #30 tablet.dr 03/05/17 [Rx] Insulin Glargine [Lantus] 20 unit SQ QAM 02/26/18 [History] Levothyroxine [Synthroid] 75 mcg PO 0630 02/26/18 [History] Allergy/AdvReac Type Severity Reaction Status Date / Time codeine AdvReac Nausea Verified 10/01/15 10:27 All Systems PM: A 10-system review of systems was performed and is negative for pertinent findings except as documented above in the HPI. - Constitutional Vitals: Temp Pulse Resp BP Pulse Ox 98.9 F 102 22 140/91 96 02/26/18 03:45 02/26/18 03:45 02/26/18 03:45 02/26/18 03:45 02/26/18 03:45 Exam: General: Alert and oriented. Skin:Normal color, no rash, no lesions. HEENT:Pupils equal, round and reactive. Cardiovascular:Heart sounds distant, no rubs, murmurs or gallops noted. No JVD. Pulse regular. Lungs:Breath sounds decreased, no wheezes or crackles. Abdomen:Soft, non-tender, no rigidity. Extremities:No deformity, no edema or tenderness, no joint swelling or clubbing. Tenderness noted to left arm in sling and left hip. Distal PMS intact. Neurological:Normal cognition and motor skills. Pulses:Carotid and radial pulses normal +2. Rest of the physical exam is non contributory. - Assessment and plan (1) Fall Current Visit: Yes Status: Acute Assessment and plan: Ortho consulted by sending ER. Pain control with PRN pain medication. NPO, gentle IVF ordered. Lewis until pain better controlled and more mobile. Qualifiers: Encounter type: initial encounter Qualified Code(s): W19.XXXA - Unspecified fall, initial encounter (2) Proximal humerus fracture Current Visit: Yes Status: Acute Assessment and plan: Plan as above. Qualifiers: Encounter type: initial encounter Fracture type: closed Qualified Code(s): S42.209A - Unspecified fracture of upper end of unspecified humerus, initial encounter for closed fracture (3) Pubic ramus fracture Current Visit: Yes Status: Acute Assessment and plan: Plan as above. Qualifiers: Qualified Code(s): S32.599A - Other specified fracture of unspecified pubis, initial encounter for closed fracture (4) Diabetes mellitus Current Visit: Yes Status: Chronic Assessment and plan: Accucheck q6. Sliding scale insulin. Hold home medications. Qualifiers: Diabetes mellitus type: type 2 Diabetes mellitus fpc insulin use: with fpc use Diabetes mellitus complication status: with unspecified complications Qualified Code(s): E11.8 - Type 2 diabetes mellitus with unspecified complications; Z79.4 - snf (current) use of insulin (5) Chronic kidney disease Current Visit: Yes Status: Chronic Assessment and plan: PCP recently referred to ict analyst. Avoid nephrotoxic medications. Monitor BMP. Qualifiers: Chronic kidney disease stage: unspecified stage Qualified Code(s): N18.9 - Chronic kidney disease, unspecified (6) Hypertension Current Visit: Yes Status: Chronic Assessment and plan: Continue home medications once verified. Qualifiers: Hypertension type: unspecified Qualified Code(s): I10 - Essential (primary) hypertension - Time Spent With Patient Total time spent is greater than 50% in coordination of care (as documented) at patient's floor/unit and/or counseling patient:
[2018-02-26] MEDS ORDERED: Insulin LISPRO 300 UNITS/3 ML VIAL SQ SCH (06:00)
[2018-02-26 08:31] LABS: Basophils # 0.1 K/mcL (0.0-0.2); Basophils % 0.4 %; Eosinophils # 0.2 K/mcL (0.0-0.6); Eosinophils % 1.6 %; Hemoglobin 10.3 g/dL (11.5-15.4); Immature Granulocytes % 0.3 % (0-4); Lymphocytes # 1.2 K/mcL (0.6-4.6); Lymphocytes % 10.5 %; Mean Corpuscular HGB Conc 31.2 g/dL (31.6-35.5); Mean Corpuscular Hemoglobin 29.6 pg (28.0-33.3); Mean Corpuscular Volume 94.8 fL (83.0-100.0); Mean Platelet Volume 10.5 fL (9.4-12.4); Monocytes # 0.9 K/mcL (0.0-1.3); Monocytes % 7.5 %; Neutrophils # 9.3 K/mcL (1.6-8.9); Platelet Count 150 K/mcL (140-400); Red Blood Count 3.48 M/mcL (3.82-4.97); Red Cell Distribution Width 15.5 % (11.5-14.5); Segmented Neutrophils % 79.7 %
[2018-02-26 08:39] LABS: INR 1.2; Prothrombin Time 13.2 Seconds (9.4-12.1)
[2018-02-26 08:49] LABS: BUN/Creatinine Ratio 25 (6-26); Blood Urea Nitrogen 22 mg/dL (8-23); Calcium 8.8 mg/dL (8.6-10.3); Carbon Dioxide 30 mEq/L (23-29); Chloride 102 mEq/L (98-107); Glucose 287 mg/dL (70-105); Osmolality,Calculated 294 (280-300); Potassium 4.4 mEq/L (3.5-5.1); Sodium 135 mEq/L (136-145); eGFR For Non-African Americans > 60 (> 60)
[2018-02-26] MEDS ORDERED: MAGNESIUM HYDROXIDE PO PRN (09:47)
[2018-02-26] MEDS ORDERED: tiZANidine 4 MG TABLET PO PRN (09:47)
[2018-02-26] MEDS: FLUoxetine 20 MG CAPSULE PO SCH (10:06)
[2018-02-26] MEDS: Gabapentin 400 MG CAPSULE PO SCH ×3 (10:07→16:32)
[2018-02-26] MEDS: OXYCODONE Oral CONC 10 MG/0.5 ML ORAL.SYG SL PRN ×2 (10:07→16:41)
--- NOTE | 2018-02-26 10:13 | Orthopedic Consult Note ---
Date of Encounter: 02/26/18 Time of Encounter: 10:09 Assessment and Plan (1) Fall Current Visit: Yes Status: Acute This patient did have a fall that resulted in a left proximal humerus fracture without significant displacement as well as a pelvic ring injury involving the superior and inferior pubic ramus bones on the left. I will obtain a CT scan of the whole pelvis to further evaluate this however my current recommendation is for nonoperative management at both sites. Sling for comfort for the left upper extremity and will begin range of motion exercises in about 3 weeks. Nonweightbearing to left upper extremity. Weightbearing as tolerated to bilateral lower extremities. Weight bearing as tolerated to the right upper extremity. She will need repeat x-rays of the left shoulder and the pelvis in 1 week's time. PT and OT to evaluate for disposition though I anticipate the need for rehabilitation facility upon discharge. Qualifiers: Encounter type: initial encounter Qualified Code(s): W19.XXXA - Unspecified fall, initial encounter History of Present Illness HPI: Ms. Fitzpatrick is a 67 year old female transferred to the hospitalist from [facility] in [place]. She had a ground-level fall and sustained fractures of her left proximal humerus as well as a pelvic ring injury. She is now here on [address] On my evaluation she complains of isolated pain to the left groin region and symphysis as well as the left shoulder. The pain is sharp and achy in each region and worse with use and movement and better with rest. She denies any other injuries or trauma. She denies any numbness, tingling, or any other associated signs or symptoms. Past Med Surg Social Fam HX - Past Medical History Medical history: arthritis, CHF, COPD, coronary artery disease, diabetes, GERD, glaucoma, hyperlipidemia, hypertension, osteoporosis, thyroid disease, other Additional medical history: Chronic Back Pain Psychiatric history: anxiety, depression - Past Surgical History Surgical History: , cholecystectomy, coronary bypass (CABG), hysterectomy Additional surgical history: left arm surgery. left hip surgery - Social History Smoking Status: Never smoker Smokeless Tobacco Status: No Alcohol use: none Drug use: none - Family History Mother History Unknown: Yes Living Status: Hx Family Cardiac Disorders: Yes Father History Unknown: Yes Living Status: Hx Family Cardiac Disorders: Yes Hx Family Cancer: Yes (bone cancer) Medications and Allergies Amoxicillin/Clavulanate [Augmentin] 875 mg PO BID 03/02/17 [History] Calcium Carbonate/Vitamin D3 [Calcium 600-Vit D3 400 Tablet] 1 each PO DAILY 03/02/17 [History] Clopidogrel [Plavix] 75 mg PO DAILY 03/02/17 [History] FLUoxetine HCl [Prozac] 40 mg PO DAILY 03/02/17 [History] Gabapentin [Neurontin] 800 mg PO QID 03/02/17 [History] HYDROcodone/Acet 10/325 mg [[place] 10-325 mg] 1 tab PO BID PRN 03/02/17 [History] Insulin ASPART [Novolog Flexpen] 100 unit SQ ACHS 03/02/17 [History] Insulin Glargine [Lantus] 35 unit SQ HS 03/02/17 [History] Lisinopril [Zestril] 10 mg PO DAILY 03/02/17 [History] Magnesium Hydroxide [Milk of Magnesia] 100 ml PO DAILY PRN 03/02/17 [History] Sennosides [Senna] 8.6 mg PO BID PRN 03/02/17 [History] Tizanidine HCl [Zanaflex] 4 mg PO TID PRN 03/02/17 [History] hydroCHLOROthiazide [Hydrochlorothiazide] 25 mg PO DAILY 03/02/17 [History] Aspirin 81 mg PO DAILY #30 tab.chew 03/05/17 [Rx] Atorvastatin [Lipitor] 40 mg PO HS #30 tablet 03/05/17 [Rx] Carvedilol [Coreg] 3.125 mg PO BID #30 tablet 03/05/17 [Rx] Furosemide [Lasix] 20 mg PO DAILY #30 tablet 03/05/17 [Rx] Pantoprazole Sodium [Protonix] 20 mg PO BID #30 tablet.dr 03/05/17 [Rx] Insulin Glargine [Lantus] 20 unit SQ QAM 02/26/18 [History] Levothyroxine [Synthroid] 75 mcg PO 0630 02/26/18 [History] Allergy/AdvReac Type Severity Reaction Status Date / Time codeine AdvReac Nausea Verified 10/01/15 10:27 All Systems Reviewed: Constitutional -The patient denies any fevers, chills, or feelings of illness Neurologic -The patient denies any numbness, tingling, or burning pains Physical Exam - Constitutional Vitals: Temp Pulse Resp BP Pulse Ox 98.9 F 104 18 143/87 96 02/26/18 06:51 02/26/18 06:51 02/26/18 06:51 02/26/18 06:51 02/26/18 06:51 Constitutional -Vitals reviewed -The patient is well developed and well nourished. -Mood is pleasant. -The patient is well groomed. Psychiatric -The patient is fully alert and oriented x 3. Respiratory: -Respiratory effort normal Abdomen: -Soft abdomen -Non tender -Non distended: Left upper extremity: -No deformities. The overlying skin is intact. No obvious signs of acute trauma. -Tenderness over the anterior shoulder region -I did not range the shoulder due to her known injury. -No significant pain with passive motion of the elbow, wrist, and fingers within the limits of the bed. -Able to make an "OK" sign, cross the index and long fingers, and extend the thumb. -Sensation grossly intact to light touch throughout the median, radial, and ulnar distributions. -Radial pulse is present; Fingers have good capillary refill. Right upper extremity: -No deformities. The overlying skin is intact. No obvious signs of acute trauma. -No tenderness to palpation throughout. -No significant pain with passive motion of the shoulder, elbow, wrist, and fingers within the limits of the bed. -Able to make an "OK" sign, cross the index and long fingers, and extend the thumb. -Sensation grossly intact to light touch throughout the median, radial, and ulnar distributions. -Radial pulse is present; Fingers have good capillary refill. Left lower extremity: -No deformities. The overlying skin is intact. No obvious signs of acute trauma. -Mild tenderness over the groin and symphysis pubis region -She is able to flex the hip without significant pain. -No pain with passive motion of the knee, ankle, and toes within the limits of the bed. -Minimal pain with axial loading of the thigh. -Able to dorsiflex and plantarflex the ankle and toes. -Sensation is grossly intact to light touch throughout the sural, saphenous, superficial peroneal, and deep peroneal distributions. -Toes have good capillary refill. Right lower extremity: -No deformities. The overlying skin is intact. No obvious signs of acute trauma. -No tenderness to palpation throughout. -No pain with passive motion of the hip, knee, ankle, and toes within the limits of the bed. -No pain with axial loading of the thigh. -Able to dorsiflex and plantarflex the ankle and toes. -Sensation is grossly intact to light touch throughout the sural, saphenous, superficial peroneal, and deep peroneal distributions. -Toes have good capillary refill. Diagnostic Imaging: I did personally review and interpret left hip x-ray left shoulder x-rays as well as CT scans of each that were obtained at the outlying facility and demonstrate a nondisplaced surgical neck and greater tuberosity fracture on the left as well as a nondisplaced pelvic ring injury involving the superior and inferior pubic ramus fractures and likely a subtle impaction of the sacrum. Results - Labs Result Diagrams: 02/26/18 08:20 02/26/18 08:20 Labs: Abnormal lab results WBC 11.6 K/mcL (4.3-11.1) H 02/26/18 08:20 RBC 3.48 M/mcL (3.82-4.97) L 02/26/18 08:20 Hgb 10.3 g/dL (11.5-15.4) L 02/26/18 08:20 Hct 33.0 % (35.3-44.9) L 02/26/18 08:20 MCHC 31.2 g/dL (31.6-35.5) L 02/26/18 08:20 RDW 15.5 % (11.5-14.5) H 02/26/18 08:20 Neutrophils # 9.3 K/mcL (1.6-8.9) H 02/26/18 08:20 PT 13.2 Seconds (9.4-12.1) H 02/26/18 08:20 Sodium 135 mEq/L (136-145) L 02/26/18 08:20 Carbon Dioxide 30 mEq/L (23-29) H 02/26/18 08:20 Glucose 287 mg/dL (70-105) H 02/26/18 08:20 H & H 02/26/18 Range/Units 08:20 Hgb 10.3 L (11.5-15.4) g/dL Hct 33.0 L (35.3-44.9) % All other labs normal. Consult Discharge Plan - Plan Referrals: Vane Mckee CNP [Primary Care Provider] -
[2018-02-26] MEDS ORDERED: NON-FORMULARY MEDICATION 1 EACH EACH (Insulin Aspart [Novolog Flexpen] 100 UNIT) SQ SCH (11:30)
[2018-02-26] MEDS: Insulin LISPRO 300 UNITS/3 ML VIAL SQ SCH ×3 (11:43→22:30)
[2018-02-26] MEDS: *HR* HYDROcodone/Acet 10/325 mg TABLET PO PRN ×2 (11:43→22:30)
--- NOTE | 2018-02-26 12:50 | Internal Med Progress Note ---
Hospitalist Progress Note - Encounter Date of Encounter: 02/26/18 Time of Encounter: 08:00 - Subjective Interval History: Patient was seen and examined at bedside. Reports that she had a mechanical fall and it resulted her landing on her left side of her body and suffering trauma to her left arm. She denies syncopal episode, denies nausea, vomiting, diarrhea. Pain is controlled. Was recently seen by her payroll specialist and reports that there was no other changes in her medications. At baseline she does not ambulate much and has to stop due to her back pain. Cannot carry groceries from her car to her house secondary to back pain. Denies chest pain, shortness of breath, palpitation. - Exam Vitals: Temp Pulse Resp BP Pulse Ox 98.9 F 104 18 143/87 96 02/26/18 06:51 02/26/18 06:51 02/26/18 06:51 02/26/18 06:51 02/26/18 06:51 Exam: General: Patient is alert, oriented, no acute distress, obese Head: atraumatic, normocephalic, Eye: normal appearance, PERRL, no scleral icterus, no conjunctival injection ENT: mucous membranes moist, normal external ear exam Neck: normal inspection, trachea midline, full ROM, no carotid bruits Chest: normal inspection, symmetric chest rise Respiratory: Good respiratory effort. Bilateral breath sounds are clear without wheezing, crackles, or rhonchi. Cardiovascular: Regular rate and rhythm. s1 and s2 No clicks, rubs, gallops, or murmors. Abdomen: Bowel sounds present normoactive x-4 quadrants. Abdomen is soft, nond istended. no Epigastric tenderness. No guarding or rebound. No organomegaly noted, obese musculoskeletal: Spontaneously moving all extremities. no edema, no calf tenderness Skin: warm, dry, intact. Neuro: Alert and oriented x4. Sensation light touch intact. Cranial nerves 2- 12 is intact. Not aphasic, gait is steady, rapid hand movements intact, [id number] intact, Psych: Patient's affect is normal - Assessment and Plan (1) Proximal humerus fracture Current Visit: Yes Status: Acute Assessment and Plan: Left proximal humerus fracture without significant displacement. Orthopedics consulted and recommendations appreciated- conservative management Sling for comfort for the left upper extremity and will begin range of motion exercises in about 3 weeks. Nonweightbearing to left upper extremity. Weightbearing as tolerated to bilateral lower extremities. Weight bearing as tolerated to the right upper extremity. Physical therapy and rehabilitation She will need repeat x-rays of the left shoulder and the pelvis in 1 week's time. (2) Pubic ramus fracture Current Visit: Yes Status: Acute Assessment and Plan: CT abdomen and pelvis with IMPRESSION: 1. Left superior and inferior pubic rami fractures with 2.3 x 5.7 cm posttraumatic soft tissue hematoma. 2. Bilateral hip and SI joint osteoarthritis. Continue Lewis catheter Will follow orthopedic recommendations (3) Hematoma Current Visit: Yes Status: Acute Assessment and Plan: Left superior and inferior pubic rami fractures with 2.3 x 5.7 cm posttraumatic soft tissue hematoma. Patient is on dual antiplatelets. We will continue Avoid anticoagulation for DVT prophylaxiswill continue with SCDs for now We will continue to monitor H&H every 12 hours Type and screen Transfuse less than 8 (4) Fall Current Visit: Yes Status: Acute Assessment and Plan: Mechanical fall Physical therapy and rehabilitation consulted (5) Diabetes mellitus Current Visit: Yes Status: Chronic Assessment and Plan: Accucheck q6. Sliding scale insulin. Hold home medications. (6) Hypertension Current Visit: Yes Status: Chronic Assessment and Plan: We will continue home medications Adjust as per BP. (7) Chronic kidney disease Current Visit: Yes Status: Chronic Assessment and Plan: PCP recently referred to carpet sewer. Avoid nephrotoxic medications. Monitor BMP. (8) Chronic anemia Current Visit: Yes Status: Acute Assessment and Plan: Baseline H&H is around 8-9. Currently 10.3 We will continue to monitor H&H every 12 hours Transfuse below 8. (9) CAD (coronary artery disease) Current Visit: Yes Status: Acute Assessment and Plan: Patient with history of severe coronary artery disease status post CABG On dual antiplatelets We will continue Coreg, lisinopril, and statin (10) DVT prophylaxis Current Visit: Yes Status: Acute Assessment and Plan: SCDs - Time Spent with Patient Total time spent is greater than 50% in coordination of care (as documented) at patient's floor/unit and/or counseling patient: Internal Medicine: Result - Labs CBC & Chem 7: 02/26/18 08:20 02/26/18 08:20 Labs: Short CBC 02/26/18 Range/Units 08:20 WBC 11.6 H (4.3-11.1) K/mcL Hgb 10.3 L (11.5-15.4) g/dL Hct 33.0 L (35.3-44.9) % Plt Count 150 (140-400) K/mcL Neutrophils # 9.3 H (1.6-8.9) K/mcL BMP 02/26/18 08:20 Sodium 135 L Potassium 4.4 Chloride 102 Carbon Dioxide 30 H BUN 22 Creatinine 0.87 Glucose 287 H Calcium 8.8 - ABG Interpretation ABG results: PT/INR, D-dimer PT 13.2 Seconds (9.4-12.1) H 02/26/18 08:20 - Impressions Impressions Pelvis CT 02/26/18 10:04 IMPRESSION: 1. Left superior and inferior pubic rami fractures with 2.3 x 5.7 cm posttraumatic soft tissue hematoma. 2. Bilateral hip and SI joint osteoarthritis. D/ / 02/26/2018 11:24:20 Tim Mendez MD / christiana Interpreting Provider: Tim Mendez MD Consult Discharge Plan - Plan Referrals: Vane Mckee, TRANSCRIPTION TYPIST [Primary Care Provider] - (1) Proximal humerus fracture Qualifiers: Encounter type: initial encounter Fracture type: closed Qualified Code(s): S42.209A - Unspecified fracture of upper end of unspecified humerus, initial encounter for closed fracture (2) Pubic ramus fracture Qualifiers: Qualified Code(s): S32.599A - Other specified fracture of unspecified pubis, initial encounter for closed fracture (4) Fall Qualifiers: Encounter type: initial encounter Qualified Code(s): W19.XXXA - Unspecified fall, initial encounter (5) Diabetes mellitus Qualifiers: Diabetes mellitus type: type 2 Diabetes mellitus intermediate project manager insulin use: with custodial use Diabetes mellitus complication status: with unspecified complications Qualified Code(s): E11.8 - Type 2 diabetes mellitus with unspecified complications; Z79.4 - prison (current) use of insulin (6) Hypertension Qualifiers: Hypertension type: unspecified Qualified Code(s): I10 - Essential (primary) hypertension (7) Chronic kidney disease Qualifiers: Chronic kidney disease stage: unspecified stage Qualified Code(s): N18.9 - Chronic kidney disease, unspecified
[2018-02-26 13:59] LABS: Hematocrit 33.3 % (35.3-44.9); Hemoglobin 10.3 g/dL (11.5-15.4); Mean Corpuscular HGB Conc 30.9 g/dL (31.6-35.5); Mean Corpuscular Hemoglobin 29.8 pg (28.0-33.3); Mean Corpuscular Volume 96.2 fL (83.0-100.0); Mean Platelet Volume 10.7 fL (9.4-12.4); Platelet Count 162 K/mcL (140-400); Red Blood Count 3.46 M/mcL (3.82-4.97); Red Cell Distribution Width 15.5 % (11.5-14.5)
[2018-02-26] MEDS ORDERED: Insulin DETEMIR 100 UNIT/ML X5UNITS SQ SCH (21:00)
[2018-02-26] MEDS: Insulin DETEMIR 100 UNIT/ML X5UNITS SQ SCH (23:23)
[2018-02-27 03:00] LABS: Bilirubin,Urine Moderate (Negative); Blood,Urine Large (Negative); Clarity,Urine Turbid (Clear); Color,Urine Orange (Yellow); Glucose,Urine (UA) Normal (Normal); Ketones,Urine Trace mg/dL (Negative); Leukocyte Esterase,Urine Moderate (Negative); Nitrite,Urine Negative (Negative); Protein,Urine 100 mg/dL (Neg-Trace); Urobilinogen,Urine Normal (Normal)
[2018-02-27 03:03] LABS: Hyaline Casts,Urine None Seen per lpf (None-Few); RBC,Urine TNTC per hpf (0-3); Squamous Epithelial Cell,Urine Many per lpf (None-Few)
[2018-02-27 03:43] LABS: Calcium Oxalate Crystals,Urine Present
[2018-02-27 03:44] LABS: Bacteria,Urine Many per hpf (None-Few)
[2018-02-27 05:33] LABS: Hematocrit 32.4 % (35.3-44.9); Hemoglobin 10.3 g/dL (11.5-15.4); Mean Corpuscular HGB Conc 31.8 g/dL (31.6-35.5); Mean Corpuscular Hemoglobin 30.5 pg (28.0-33.3); Mean Corpuscular Volume 95.9 fL (83.0-100.0); Mean Platelet Volume 10.7 fL (9.4-12.4); Platelet Count 154 K/mcL (140-400); Red Blood Count 3.38 M/mcL (3.82-4.97)
[2018-02-27] MEDS: OXYCODONE Oral CONC 10 MG/0.5 ML ORAL.SYG SL PRN (05:36)
[2018-02-27 06:02] LABS: Calcium 8.9 mg/dL (8.6-10.3); Potassium 4.7 mEq/L (3.5-5.1)
[2018-02-27] MEDS ORDERED: 0.9 % Sodium Chloride 1,000 ML IVC SCH ×2 (06:45→11:24)
--- NOTE | 2018-02-27 07:06 | Event Note ---
Date of Encounter: 02/27/18 Time of Encounter: 06:25 Notified by nurse of morning BMP results. Will repeat BMP for accuracy as yesterdays was normal, however on admission patient stated she recently was referred to photographic developer and printer by PCP due to worsening renal function. MIVF ordered at 50ml/hr due to heart failure. Nephrology consult ordered.
--- NOTE | 2018-02-27 07:35 | Orthopedics Progress Note ---
Date of Encounter: 02/27/18 Time of Encounter: 07:33 - Assessment and Plan (1) Fall Current Visit: Yes Status: Acute Qualifiers: Encounter type: initial encounter Qualified Code(s): W19.XXXA - Unspecified fall, initial encounter Subjective Interval history: S: The patient is resting comfortably in bed without new complaints Pain is controlled to the left shoulder and pelvic region O: Afebrile on the vital signs are stable Left upper extremity is in a sling She is neurovascularly intact distally Minimal pain over the pelvis and symphysis region to touch Neurovascularly intact distally on the bilateral lower extremities CT scan does show a nondisplaced lateral compression type I pelvic ring injury with pubic ramus fractures on the left and a small anterior sacral fracture A: Stable pelvic ring injury Left proximal humerus fracture P: My recommendation is for nonoperative management of both fractures at this time. Repeat x-rays in 1 week. Weightbearing as tolerated on bilateral lower extremities and right upper extremity. Nonweightbearing on the left upper extremity. Sling for the left upper extremity. Therapy today. Objective Vital signs: Vital Signs Temp Pulse Resp BP Pulse Ox 02/27/18 06:43 98.1 F 110 18 95/61 97 02/27/18 03:22 97.5 F L 110 20 98/65 97 02/27/18 01:04 99.5 F 02/27/18 00:56 99.9 F H 120 22 107/74 95 02/26/18 22:54 99.8 F H 114 18 101/56 99 02/26/18 21:05 99.1 F 108 20 101/63 94 02/26/18 19:38 98.9 F 105 22 100/63 96 02/26/18 14:11 98.7 F 98 16 139/87 96 Intake and Output 02/26/18 02/26/18 02/27/18 15:59 23:59 07:59 Intake Total 300 / 300 755 / 755 50 / 50 Output Total 275 / 275 75 / 75 25 / 25 Balance 25 / 25 680 / 680 25 / 25 Intake: Oral 300 / 300 755 / 755 50 / 50 Output: Catheter 275 / 275 75 / 75 25 / 25 Other: Meal Dinner Percent of Meal Consumed 40% Weight 96.7 kg Blood Glucose* 167 143 192 Patient Weight 02/27/18 23:59 Weight 96.7 kg - Labs CBC & BMP: 02/27/18 04:53 02/27/18 04:53 Labs: Abnormal lab results WBC 12.0 K/mcL (4.3-11.1) H 02/27/18 04:53 RBC 3.38 M/mcL (3.82-4.97) L 02/27/18 04:53 Hgb 10.3 g/dL (11.5-15.4) L 02/27/18 04:53 Hct 32.4 % (35.3-44.9) L 02/27/18 04:53 RDW 16.0 % (11.5-14.5) H 02/27/18 04:53 Neutrophils # 9.3 K/mcL (1.6-8.9) H 02/26/18 08:20 PT 13.2 Seconds (9.4-12.1) H 02/26/18 08:20 Sodium 135 mEq/L (136-145) L 02/27/18 04:53 BUN 28 mg/dL (8-23) H 02/27/18 04:53 Creatinine 2.08 mg/dL (0.60-1.20) H 02/27/18 04:53 Est GFR ( Amer) 29 (> 60) L 02/27/18 04:53 Est GFR (Non-Af Amer) 24 (> 60) L 02/27/18 04:53 Glucose 214 mg/dL (70-105) H 02/27/18 04:53 POC Glucose 278 mg/dL (70-99) H 02/26/18 07:15 Urine Color At[place] (Yellow) A 02/27/18 00:52 Urine Clarity Turbid (Clear) A 02/27/18 00:52 Ur Specific [place] 1.030 (1.010-1.025) H 02/27/18 00:52 Urine Protein 100 mg/dL (Neg-Trace) H 02/27/18 00:52 Urine Ketones Trace mg/dL (Negative) H 02/27/18 00:52 Urine Blood Large (Negative) H 02/27/18 00:52 Urine Bilirubin Moderate (Negative) H 02/27/18 00:52 Ur Leukocyte Esterase Moderate (Negative) H 02/27/18 00:52 Urine Microscopic RBC TNTC per hpf (0-3) H 02/27/18 00:52 Urine Microscopic WBC 5-15 per hpf (0-3) H 02/27/18 00:52 Ur Squamous Epith Cells Many per lpf (None-Few) H 02/27/18 00:52 Urine Bacteria Many per hpf (None-Few) H 02/27/18 00:52 Ur Culture Indicated? NO. (NO) A 02/27/18 00:52 Consult Discharge Plan - Plan Referrals: Vane Mckee CNP [Primary Care Provider] -
[2018-02-27] MEDS: Insulin LISPRO 300 UNITS/3 ML VIAL SQ SCH ×3 (08:09→20:57)
[2018-02-27] MEDS: FLUoxetine 20 MG CAPSULE PO SCH (08:11)
[2018-02-27] MEDS: Cholecalciferol (D-3) 1,000 UNIT TABLET PO SCH (08:11)
[2018-02-27] MEDS: Aspirin 81 MG TAB.CHEW PO SCH (08:11)
[2018-02-27] MEDS ORDERED: Insulin DETEMIR 100 UNIT/ML X5UNITS SQ SCH (09:00)
[2018-02-27] MEDS ORDERED: MOM Conc 10 ML UD.LIQ PO PRN (09:05)
[2018-02-27 09:25] LABS: Calcium 8.9 mg/dL (8.6-10.3); Potassium 4.6 mEq/L (3.5-5.1)
--- NOTE | 2018-02-27 10:06 | Internal Med Progress Note ---
<Farrah Neal - Last Filed: 02/27/18 13:38> Hospitalist Progress Note - Encounter Date of Encounter: 02/27/18 Time of Encounter: 08:00 - Subjective Interval History: Ms. Fitzpatrick is a 67-year-old female who was presented to the ED from [facility] after a mechanical fall 1 day ago. She complained of pain in the left arm as well as left hip after her fall. On presentation she had CT of the head and cervical spine which were negative for any acute findings. CT of the upper and lower extremities were conducted and showed left proximal humeral fracture extending through the surgical neck as well as left superior and inferior pubic ramus. Orthopedic surgery was consulted and they recommended nonoperative management of post fractures. Recommended continuing left upper extremity sling. She is also urged to not bear weight on the left upper extremity. She is to repeat and a shoulder x-ray in 1 week. This morning he notes her pain is under control. She was noted to be on 2 L of oxygen with oxygen saturation of 90%. Upon reducing her supplemental oxygen her saturation dropped to 82%. 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 She appeared comfortable and denied any shortness of breath at that time. Her blood pressure was noted to be 98/65. He denies fevers, chest pain, dysuria, nausea, emesis, chest pain or abdominal pain. - Exam Vitals: Temp Pulse Resp BP Pulse Ox 98.1 F 103 18 128/74 97 02/27/18 06:43 02/27/18 08:02 02/27/18 06:43 02/27/18 08:02 02/27/18 06:43 Exam: General: Patient is alert, oriented, no acute distress, obese Head: atraumatic, normocephalic, Eye: normal appearance, PERRL, no scleral icterus, no conjunctival injection ENT: mucous membranes moist, normal external ear exam Neck: normal inspection, trachea midline, full ROM Chest: normal inspection, symmetric chest rise Respiratory: Good respiratory effort. No wheeze, crackles or rhonchi. Decreased breath sounds at bilateral lower lobes. Cardiovascular: Regular rate and rhythm. s1 and s2 No clicks, rubs, gallops, or murmurs. Abdomen: Bowel sounds present normoactive x-4 quadrants. Abdomen is soft, nondistended. no epigastric tenderness. No guarding or rebound. Musculoskeletal: Spontaneously moving all extremities. no edema, no calf tenderness Skin: warm, dry, intact. Neuro: Alert and oriented x3. Psych: Patient's affect is normal, thought content congruent. - Assessment and Plan (1) Proximal humerus fracture Current Visit: Yes Status: Acute Assessment and Plan: Left proximal humerus fracture without significant displacement Orthopedics consulted and recommend nonsurgical intervention Sling for comfort for the left upper extremity Nonweightbearing to left upper extremity Weightbearing as tolerated to bilateral lower extremities Physical therapy and rehabilitation She will need repeat x-rays of the left shoulder and the pelvis in 1 week (2) Pubic ramus fracture Current Visit: Yes Status: Acute Assessment and Plan: Ramus fracture secondary to mechanical fall: CT shows: 1. Left superior and inferior pubic rami fractures with 2.3 x 5.7 cm posttraumatic soft tissue hematoma. 2. Bilateral hip and SI joint osteoarthritis. Continue Lewis catheter Continue orthopedic recommendation, which includes weightbearing as tolerated. Increasing most motion exercises in 3 weeks. PT and OT following. (3) Hematoma Current Visit: Yes Status: Acute Assessment and Plan: Left superior and inferior pubic rami fractures with 2.3 x 5.7 cm posttraumatic soft tissue hematoma. Hold dual antiplatelet therapy Avoid anticoagulation for DVT prophylaxiswill continue with SCDs for now Awaiting stat H&H Transfuse less than 8 (4) Fall Current Visit: Yes Status: Acute Assessment and Plan: Mechanical fall: CT of the head and neck is negative Physical therapy and rehabilitation consulted Continue pain regimen (5) Diabetes mellitus Current Visit: Yes Status: Chronic Assessment and Plan: Glucose this morning was 202 Accucheck q6 Sliding scale insulin Hold home medications Continue diabetic diet (6) Chronic kidney disease Current Visit: Yes Status: Chronic Assessment and Plan: PCP recently referred to it infrastructure consultant. Noted to have GFR of 25. Unknown baseline. Avoid nephrotoxic medications Monitor BMP Nephrology consulted (7) Chronic anemia Current Visit: Yes Status: Acute Assessment and Plan: Likely secondary to see CKD stage 4. Unknown baseline. No sign of occult bleed but could be worsened due to hematoma of left pelvis. Baseline H&H is around 8-9. Currently 10.3 Awaiting stat H&H Transfuse below 8 (8) CAD (coronary artery disease) Current Visit: Yes Status: Chronic Assessment and Plan: Patient with history of severe coronary artery disease status post CABG On dual antiplatelets We will continue Plavix and statin. Holding lisinopril as she is hypotensive (9) DVT prophylaxis Current Visit: Yes Status: Acute Assessment and Plan: SCDs due to hematoma and anemia (10) Hypotension Current Visit: Yes Status: Acute Assessment and Plan: Noted to be hypotensive this morning could be secondary to hematoma. Chest x- ray was not concerning for pneumonia. Coreg is being held IV fluids at 100 mls/hr - Time Spent with Patient Total time spent is greater than 50% in coordination of care (as documented) at patient's floor/unit and/or counseling patient: Internal Medicine: Result - Labs CBC & Chem 7: 02/27/18 04:53 02/27/18 08:39 Labs: Short CBC 02/26/18 02/27/18 Range/Units 13:27 04:53 WBC 12.1 H 12.0 H (4.3-11.1) K/mcL Hgb 10.3 L 10.3 L (11.5-15.4) g/dL Hct 33.3 L 32.4 L (35.3-44.9) % Plt Count 162 154 (140-400) K/mcL BMP 02/27/18 02/27/18 04:53 08:39 Sodium 135 L 133 L Potassium 4.7 4.6 Chloride 101 99 Carbon Dioxide 29 28 BUN 28 H 31 H Creatinine 2.08 H 2.01 H Glucose 214 H 202 H Calcium 8.9 8.9 Urine 02/27/18 Range/Units 00:52 Urine Color Union A (Yellow) Urine Clarity Turbid A (Clear) Urine pH 5.0 (5.0-8.0) pH Units Ur Specific [place] 1.030 H (1.010-1.025) Urine Protein 100 H (Neg-Trace) mg/dL Urine Glucose (UA) Normal (Normal) mg/dL - ABG Interpretation ABG results: PT/INR, D-dimer PT 13.2 Seconds (9.4-12.1) H 02/26/18 08:20 - Impressions Impressions Pelvis CT 02/26/18 10:04 IMPRESSION: 1. Left superior and inferior pubic rami fractures with 2.3 x 5.7 cm posttraumatic soft tissue hematoma. 2. Bilateral hip and SI joint osteoarthritis. D/ / 02/26/2018 11:24:20 Tim Mendez MD / christiana Interpreting Provider: Tim Mendez MD Consult Discharge Plan - Plan Referrals: Vane Mckee, SEWAGE SCREEN OPERATOR [Primary Care Provider] - <Johanna Mendez - Last Filed: 02/27/18 15:13> Hospitalist Progress Note - Encounter Date of Encounter: 02/27/18 - Exam Vitals: Temp Pulse Resp BP Pulse Ox 98.4 F 97 20 98/65 92 02/27/18 10:52 02/27/18 10:52 02/27/18 10:52 02/27/18 10:52 02/27/18 12:51 - Assessment and Plan (1) Proximal humerus fracture Current Visit: Yes Status: Acute (2) Pubic ramus fracture Current Visit: Yes Status: Acute (3) Fall Current Visit: Yes Status: Acute (4) Diabetes mellitus Current Visit: Yes Status: Chronic (5) Chronic kidney disease Current Visit: Yes Status: Chronic (6) Hematoma Current Visit: Yes Status: Acute (7) Chronic anemia Current Visit: Yes Status: Acute (8) DVT prophylaxis Current Visit: Yes Status: Acute (9) CAD (coronary artery disease) Current Visit: Yes Status: Chronic (10) Hypotension Current Visit: Yes Status: Acute - Time Spent with Patient Total time spent is greater than 50% in coordination of care (as documented) at patient's floor/unit and/or counseling patient: Internal Medicine: Result - Labs CBC & Chem 7: 02/27/18 14:39 02/27/18 08:39 Labs: Short CBC 02/27/18 02/27/18 Range/Units 04:53 14:39 WBC 12.0 H (4.3-11.1) K/mcL Hgb 10.3 L 10.3 L (11.5-15.4) g/dL Hct 32.4 L 33.2 L (35.3-44.9) % Plt Count 154 (140-400) K/mcL BMP 02/27/18 02/27/18 04:53 08:39 Sodium 135 L 133 L Potassium 4.7 4.6 Chloride 101 99 Carbon Dioxide 29 28 BUN 28 H 31 H Creatinine 2.08 H 2.01 H Glucose 214 H 202 H Calcium 8.9 8.9 Urine 02/27/18 02/27/18 Range/Units 00:52 12:15 Urine Color Union A Dark Yellow (Yellow) Urine Clarity Turbid A Turbid A (Clear) Urine pH 5.0 5.0 (5.0-8.0) pH Units Ur Specific [place] 1.030 H 1.022 (1.010-1.025) Urine Protein 100 H 100 H (Neg-Trace) mg/dL Urine Glucose (UA) Normal Normal (Normal) mg/dL - ABG Interpretation ABG results: PT/INR, D-dimer PT 13.2 Seconds (9.4-12.1) H 02/26/18 08:20 - Impressions Impressions Pelvis CT 02/26/18 10:04 IMPRESSION: 1. Left superior and inferior pubic rami fractures with 2.3 x 5.7 cm posttraumatic soft tissue hematoma. 2. Bilateral hip and SI joint osteoarthritis. D/ / 02/26/2018 11:24:20 Tim Mendez MD / [email or web address] Interpreting Provider: Tim Mendez MD Chest X-Ray 02/27/18 11:22 IMPRESSION: Stable cardiomegaly. Mild pulmonary vascular congestion. Low lung volumes with stable asymmetric elevation of the left hemidiaphragm. Atelectasis at the left lung base. Minimal bilateral pleural effusions. D/ / Vishal Lopes MD / Vishal Lopes MD Interpreting Provider: Vishal Lopes MD - Attending Attestation I have performed a face- to face examination of this patient and participated in formulation of valle components of Assessment and plan with the Resident. Ms. Fitzpatrick is a 67-year-old female with a recent mechanical fall with left humerus fracture which is being treated conservatively as well as left hip injury and pubic ramus fracture which is being treated nonoperatively as well. She does have a hematoma surrounding the pelvic injury which is being closely monitored. On examination today she appears a little bit groggy from her medication but is still able to converse in complete her sentences. She did have a slight bump in her creatinine which might indicate dehydration and we wi ll increase her IV fluids just gently today and back off tomorrow given her CHF history. She also has mild degree of hypoxia which is being worked up. We have started her on incentive spirometry which she has been instructed to do every 15-20 minutes. Further details of her assessment and plan please refer to the resident documentation. <Farrah Neal - Last Filed: 02/27/18 13:38> (1) Proximal humerus fracture Qualifiers: Encounter type: initial encounter Fracture type: closed Qualified Code(s): S42.209A - Unspecified fracture of upper end of unspecified humerus, initial encounter for closed fracture (2) Pubic ramus fracture Qualifiers: Qualified Code(s): S32.599A - Other specified fracture of unspecified pubis, initial encounter for closed fracture (4) Fall Qualifiers: Encounter type: initial encounter Qualified Code(s): W19.XXXA - Unspecified fall, initial encounter (5) Diabetes mellitus Qualifiers: Diabetes mellitus type: type 2 Diabetes mellitus fpc insulin use: with fpc use Diabetes mellitus complication status: with unspecified complications Qualified Code(s): E11.8 - Type 2 diabetes mellitus with unspecified complications; Z79.4 - shelter (current) use of insulin (6) Chronic kidney disease Qualifiers: Chronic kidney disease stage: unspecified stage Qualified Code(s): N18.9 - Ch ronic kidney disease, unspecified <Johanna Mendez - Last Filed: 02/27/18 15:13> (1) Proximal humerus fracture Qualifiers: Encounter type: initial encounter Fracture type: closed Qualified Code(s): S42.209A - Unspecified fracture of upper end of unspecified humerus, initial encounter for closed fracture (2) Pubic ramus fracture Qualifiers: Qualified Code(s): S32.599A - Other specified fracture of unspecified pubis, initial encounter for closed fracture (3) Fall Qualifiers: Encounter type: initial encounter Qualified Code(s): W19.XXXA - Unspecified fall, initial encounter (4) Diabetes mellitus Qualifiers: Diabetes mellitus type: type 2 Diabetes mellitus fpc insulin use: with fpc use Diabetes mellitus complication status: with unspecified complications Qualified Code(s): E11.8 - Type 2 diabetes mellitus with unspecified complications; Z79.4 - local 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
[2018-02-27] MEDS: Insulin DETEMIR 100 UNIT/ML X5UNITS SQ SCH ×2 (11:04→20:56)
[2018-02-27] MEDS: *HR* HYDROcodone/Acet 10/325 mg TABLET PO PRN (12:39)
[2018-02-27 12:42] LABS: Bilirubin,Urine Moderate (Negative); Blood,Urine Large (Negative); Clarity,Urine Turbid (Clear); Color,Urine Dark Yellow (Yellow); Glucose,Urine (UA) Normal (Normal); Ketones,Urine Negative (Negative); Leukocyte Esterase,Urine Moderate (Negative); Nitrite,Urine Negative (Negative); Protein,Urine 100 mg/dL (Neg-Trace); Specific Gravity,Urine 1.022 (1.010-1.025); Urobilinogen,Urine Normal (Normal)
[2018-02-27 12:45] LABS: WBC,Urine TNTC per hpf (0-3)
[2018-02-27 12:47] LABS: Estimated Average Glucose 197 mg/dl; Hemoglobin A1C 8.5 %
[2018-02-27 13:07] LABS: Amorphous Sediment,Urine Few (Few); Bacteria,Urine Few per hpf (None-Few); Squamous Epithelial Cell,Urine Moderate per lpf (None-Few); Uric Acid Crystals,Urine Present
--- NOTE | 2018-02-27 14:05 | Nephrology Consult Note ---
Addendum entered and electronically signed by Sophia Cruz CNP 02/28/18 11:58: Diagnosis: (1) FLO (acute kidney injury) Current Visit: Yes Status: Acute Unsure of baseline, she has never established with outpatient line up worker. She has an appt 04/04/[address] Francis to establish as new patient. FLO and CKD workup ordered. Strict I/O Avoid nephrotxoins and renal dose. (2) Chronic anemia Current Visit: Yes Status: Acute Goal Hgb is 10-11. Hgb is 10.3 today, stable. (3) Fall Current Visit: Yes Status: Acute Mechanical fall. Per primary Qualifiers: Encounter type: initial encounter Qualified Code(s): W19.XXXA - Unspecified fall, initial encounter (4) Proximal humerus fracture Current Visit: Yes Status: Acute Per Ortho. Qualifiers: Encounter type: initial encounter Fracture type: closed Qualified Code(s): S42.209A - Unspecified fracture of upper end of unspecified humerus, initial encounter for closed fracture (5) Pubic ramus fracture Current Visit: Yes Status: Acute Per ortho. Addendum entered and electronically signed by Shahbaz Francis MD 02/28/18 07:31: I examined this patient and discussed the medical decision-making with KWADWO Cortes02/27/2018. I agree with the documented findings, disposition and treatment plan as described except to the extent set forth below. Original Note: Date of Encounter: 02/27/18 Time of Encounter: 14:03 History of Present Illness - Reason for Consult Consult date: 02/27/18 Acute Kidney Injury - Chief Complaint Humerus FX, Pelvis FX - History of Present Illness Ms. Fitzpatrick is a 67 year old female who fell on 02/26/18. She fractured left shoulder and pelvis, no surgery indicated at this time. PMH: CAD with stents x2 and CABG, hypertension, hyperlipidemia, CHF, COPD, diabetes, GERD, chronic back pain, thyroid disease, depression, and anxiety. She was also just recently referred to [facility] and has an appt in March of next year. Scr is 2.01 and GFR is 25. Labs were essentially normal yesterday. However previous GFRs in 2018 were approximately 35-40. FLO and CKD workup have been ordered. Denies nausea, vomiting, diarrhea. Denies chest pain or shortness of breath. She lives at home with significant other. Denies tobacco, illicit drug use, or Etoh. Past Med Surg Social Fam HX - Past Medical History Medical history: arthritis, CHF, COPD, coronary artery disease, diabetes, GERD, glaucoma, hyperlipidemia, hypertension, osteoporosis, thyroid disease, other Additional medical history: Chronic Back Pain Psychiatric history: anxiety, depression - Past Surgical History Surgical History: , cholecystectomy, coronary bypass (CABG), hysterectomy Additional surgical history: left arm surgery. left hip surgery - Social History Smoking Status: Never smoker Smokeless Tobacco Status: No Alcohol use: none Drug use: none - Family History Mother History Unknown: Yes Living Status: Hx Family Cardiac Disorders: Yes Father History Unknown: Yes Living Status: Hx Family Cardiac Disorders: Yes Hx Family Cancer: Yes (bone cancer) Medications and Allergies Amoxicillin/Clavulanate [Augmentin] 875 mg PO BID 03/02/17 [History] Calcium Carbonate/Vitamin D3 [Calcium 600-Vit D3 400 Tablet] 1 each PO DAILY 03/02/17 [History] Clopidogrel [Plavix] 75 mg PO DAILY 03/02/17 [History] FLUoxetine HCl [Prozac] 40 mg PO DAILY 03/02/17 [History] Gabapentin [Neurontin] 800 mg PO QID 03/02/17 [History] HYDROcodone/Acet 10/325 mg [[place] 10-325 mg] 1 tab PO BID PRN 03/02/17 [History] Insulin ASPART [Novolog Flexpen] 100 unit SQ ACHS 03/02/17 [History] Insulin Glargine [Lantus] 35 unit SQ HS 03/02/17 [History] Lisinopril [Zestril] 10 mg PO DAILY 03/02/17 [History] Magnesium Hydroxide [Milk of Magnesia] 100 ml PO DAILY PRN 03/02/17 [History] Sennosides [Senna] 8.6 mg PO BID PRN 03/02/17 [History] Tizanidine HCl [Zanaflex] 4 mg PO TID PRN 03/02/17 [History] hydroCHLOROthiazide [Hydrochlorothiazide] 25 mg PO DAILY 03/02/17 [History] Aspirin 81 mg PO DAILY #30 tab.chew 03/05/17 [Rx] Atorvastatin [Lipitor] 40 mg PO HS #30 tablet 03/05/17 [Rx] Carvedilol [Coreg] 3.125 mg PO BID #30 tablet 03/05/17 [Rx] Furosemide [Lasix] 20 mg PO DAILY #30 tablet 03/05/17 [Rx] Pantoprazole Sodium [Protonix] 20 mg PO BID #30 tablet. 03/05/17 [Rx] Insulin Glargine [Lantus] 20 unit SQ QAM 02/26/18 [History] Levothyroxine [Synthroid] 75 mcg PO 0630 02/26/18 [History] Allergy/AdvReac Type Severity Reaction Status Date / Time codeine AdvReac Nausea Verified 10/01/15 10:27 Review of Systems All Systems review (narrative): The remainder of the systems are negative. Constitutional: no chills, no fatigue, no fever(s) Cardiovascular: no chest pain, no dyspnea Respiratory: no cough Gastrointestinal: no abdominal pain, no change in bowel habits, no diarrhea, no nausea, no vomiting Exam - Vital Signs Vital signs: Initial Vital Signs Temp Pulse Resp BP Pulse Ox 98.6 F 99 16 144/87 97 02/25/18 22:41 02/25/18 22:41 02/25/18 22:41 02/25/18 22:41 02/25/18 22:41 Vital Signs - Last 8 Hours Temp Pulse Resp BP Pulse Ox 02/27/18 12:51 92 02/27/18 10:52 98.4 F 97 20 98/65 93 02/27/18 08:02 103 128/74 02/27/18 06:43 98.1 F 110 18 95/61 97 Intake and Output 02/26/18 02/27/18 02/27/18 23:59 07:59 15:59 Intake Total 755 / 755 50 / 50 100 / 100 Output Total 75 / 75 25 / 25 Balance 680 / 680 25 / 25 100 / 100 Intake: Oral 755 / 755 50 / 50 100 / 100 Output: Catheter 75 / 75 25 / 25 Other: Meal Dinner Breakfast Percent of Meal Consumed 40% 25% Weight 96.7 kg Blood Glucose* 143 192 159 Patient Weight 02/27/18 23:59 Weight 96.7 kg - General Appearance General appearance: well-developed, well-nourished EENT: ATNC, hearing intact, vision intact Neck: supple Respiratory: clear Cardiology: no edema, normal S1, normal S2 Gastrointestinal: normoactive bowel sounds, no tenderness, no guarding Integumentary: no rash, warm and dry Neurologic: alert and oriented x3 Psychiatric: mood/affect appropriate, cooperative Results - Lab Results 02/27/18 04:53 02/27/18 08:39 Most recent lab results Calcium 8.9 mg/dL (8.6-10.3) 02/27/18 08:39 Consult Discharge Plan - Plan Referrals: Vane Mckee WOOD TANK BUILDER [Primary Care Provider] -
[2018-02-27 14:47] LABS: Protein/Creatinine Ratio,Urine 0.37 mg/mg (0.00-0.20)
[2018-02-27 14:51] LABS: Hematocrit 33.2 % (35.3-44.9); Hemoglobin 10.3 g/dL (11.5-15.4)
[2018-02-27] MEDS: *HR* HYDROcodone/Acet 5/325 mg TABLET PO PRN ×2 (16:14→20:56)
[2018-02-27 17:07] LABS: ABG Base Excess 3 mEq/L (-2 to 3); ABG HCO3 29 mEq/L (21-27); ABG Oxygen Saturation 89 % (95-98); ABG PCO2 51 mmHg (35-45); ABG PH 7.36 pH Units (7.32-7.45); ABG PO2 60 mmHg (85-104); ABG TCO2 30 mEq/L (20-26)
[2018-02-27] MEDS: Gabapentin 400 MG CAPSULE PO SCH (20:56)
[2018-02-27] MEDS ORDERED: Gabapentin 400 MG CAPSULE PO SCH (23:00)
[2018-02-28] MEDS: OXYCODONE Oral CONC 10 MG/0.5 ML ORAL.SYG SL PRN ×2 (00:41→06:42)
[2018-02-28 06:07] LABS: Hematocrit 31.8 % (35.3-44.9); Mean Corpuscular HGB Conc 31.4 g/dL (31.6-35.5); Mean Corpuscular Hemoglobin 29.9 pg (28.0-33.3); Mean Corpuscular Volume 94.9 fL (83.0-100.0); Mean Platelet Volume 10.4 fL (9.4-12.4); Platelet Count 155 K/mcL (140-400); Red Blood Count 3.35 M/mcL (3.82-4.97); Red Cell Distribution Width 15.8 % (11.5-14.5)
[2018-02-28 06:10] LABS: Basophils # 0.1 K/mcL (0.0-0.2); Basophils % 0.4 %; Eosinophils # 0.2 K/mcL (0.0-0.6); Hematocrit 31.9 % (35.3-44.9); Lymphocytes # 1.3 K/mcL (0.6-4.6); Lymphocytes % 10.9 %; Mean Corpuscular HGB Conc 31.3 g/dL (31.6-35.5); Mean Corpuscular Hemoglobin 29.7 pg (28.0-33.3); Mean Corpuscular Volume 94.7 fL (83.0-100.0); Mean Platelet Volume 10.7 fL (9.4-12.4); Monocytes # 1.1 K/mcL (0.0-1.3); Monocytes % 9.2 %; Neutrophils # 9.4 K/mcL (1.6-8.9); Platelet Count 157 K/mcL (140-400); Red Blood Count 3.37 M/mcL (3.82-4.97); Red Cell Distribution Width 15.8 % (11.5-14.5); Segmented Neutrophils % 76.5 %
[2018-02-28 06:19] LABS: BUN/Creatinine Ratio 23 (6-26); Blood Urea Nitrogen 23 mg/dL (8-23); Carbon Dioxide 25 mEq/L (23-29); Chloride 102 mEq/L (98-107); Glucose 172 mg/dL (70-105); Osmolality,Calculated 288 (280-300); Potassium 4.4 mEq/L (3.5-5.1); Sodium 135 mEq/L (136-145); eGFR For Non-African Americans 56 (> 60)
[2018-02-28 06:22] LABS: Uric Acid 5.3 mg/dL (2.3-7.6)
[2018-02-28 08:03] LABS: Hepatitis A Antibody IgM Nonreactive (Nonreactive); Hepatitis B Core IgM Nonreactive (Nonreactive); Hepatitis B Surface Antigen Nonreactive (Nonreactive); Hepatitis C Virus Antibody Nonreactive (Nonreactive)
[2018-02-28] MEDS: Insulin LISPRO 300 UNITS/3 ML VIAL SQ SCH ×5 (09:04→23:52)
[2018-02-28] MEDS: Cholecalciferol (D-3) 1,000 UNIT TABLET PO SCH (09:17)
[2018-02-28] MEDS: FLUoxetine 20 MG CAPSULE PO SCH (09:17)
[2018-02-28] MEDS: Aspirin 81 MG TAB.CHEW PO SCH (09:17)
[2018-02-28] MEDS: Gabapentin 400 MG CAPSULE PO SCH ×4 (09:17→23:57)
[2018-02-28] MEDS: *HR* Heparin 5,000 UNIT/ML VIAL SQ SCH ×2 (09:26→17:09)
[2018-02-28] MEDS: Insulin DETEMIR 100 UNIT/ML X5UNITS SQ SCH (09:37)
--- NOTE | 2018-02-28 10:26 | Internal Med Progress Note ---
<Farrah Neal - Last Filed: 02/28/18 16:55> Hospitalist Progress Note - Encounter Date of Encounter: 02/28/18 Time of Encounter: 09:15 - Subjective Interval History: Ms. Fitzpatrick was seen at bedside this morning. She was comfortable on 2 L of nasal cannula, with oxygen saturation of 92%. She had just completed her breakfast. She noted her left shoulder pain tolerable but is still ongoing and it worsens with any type of movement. She also complained of having a bowel movement since last . He denied any abdominal pain and noted that she is having flatulence. She denied fever, chills, nausea, emesis or chest pain. - Exam Vitals: Temp Pulse Resp BP Pulse Ox 97.9 F 93 16 97/67 98 02/28/18 07:25 02/28/18 07:25 02/28/18 07:25 02/28/18 07:25 02/28/18 07:25 Exam: General: Patient is alert, oriented, no acute distress, obese Head: atraumatic, normocephalic, Eye: normal appearance, PERRL, no scleral icterus, no conjunctival injection ENT: mucous membranes moist, normal external ear exam Neck: normal inspection, trachea midline, full ROM Chest: normal inspection, symmetric chest rise Respiratory: Good respiratory effort. No wheeze, crackles or rhonchi. Decreased breath sounds at bilateral lower lobes. Cardiovascular: Regular rate and rhythm. s1 and s2 No clicks, rubs, gallops, or murmurs. Abdomen: Bowel sounds present normoactive x-4 quadrants. Abdomen is soft, nondistended. no epigastric tenderness. No guarding or rebound. Musculoskeletal: Spontaneously moving all extremities. no edema, no calf tenderness Skin: warm, dry, intact. Neuro: Alert and oriented x3. Psych: Patient's affect is normal, thought content congruent. - Assessment and Plan (1) Proximal humerus fracture Current Visit: Yes Status: Acute Assessment and Plan: Pain is controlled. Left proximal humerus fracture without significant displacement Orthopedics consulted and recommend nonsurgical intervention Sling for comfort for the left upper extremity Nonweightbearing to left upper extremity Weightbearing as tolerated to bilateral lower extremities Physical therapy and rehabilitation She will need repeat x-rays of the left shoulder and the pelvis in 1 week (2) Pubic ramus fracture Current Visit: Yes Status: Acute Assessment and Plan: Ramus fracture secondary to mechanical fall: CT shows: 1. Left superior and inferior pubic rami fractures with 2.3 x 5.7 cm posttraumatic soft tissue hematoma. 2. Bilateral hip and SI joint osteoarthritis. Continue Lewis catheter Continue orthopedic recommendation, which includes weightbearing as tolerated. Increasing most motion exercises in 3 weeks. PT and OT following. PT/OT recommends SNF but she is declining Awaiting placement after her urinary symptoms resolve (3) Hypotension Current Visit: Yes Status: Acute Assessment and Plan: Resolved. Noted to be hypotensive yesterday could be secondary to hematoma. Chest x-ray was not concerning for pneumonia. This morning Ms. Fitzpatrick told me she attributes her hypotension to tizanidine which was recently started outpatient as it has been causing her hypotension. Her tizanidine will be held Hemoglobin is stable She is now eating and drinking and receive IV fluids yesterday for the hypotension Coreg is still being held as her blood pressure is stabalized (4) Hematoma Current Visit: Yes Status: Acute Assessment and Plan: Left superior and inferior pubic rami fractures with 2.3 x 5.7 cm posttraumatic soft tissue hematoma. Hemoglobin is table, restarted dual antiplatelet therapy and DVT prophalaxis Transfuse less than 8 (5) Fall Current Visit: Yes Status: Acute Assessment and Plan: Mechanical fall: CT of the head and neck is negative Physical therapy and rehabilitation consulted Continue pain regimen (6) Diabetes mellitus Current Visit: Yes Status: Chronic Assessment and Plan: Glucose this morning was 202 Accucheck q6 Sliding scale insulin Hold home medications Continue diabetic diet (7) Chronic kidney disease Current Visit: Yes Status: Chronic Assessment and Plan: PCP recently referred to commodity merchant. Noted to have GFR of 25 yesterday. Unknown baseline. Her creatinine was 2.01 yesterday, double her baseline She was started on UTI regimen and her creatinine as improved It was likely FLO due to hypovolemia and UTI, she received fluids and getting antibiotic for UTI Avoid nephrotoxic medications Monitor BMP Nephrology consulted (8) Chronic anemia Current Visit: Yes Status: Acute Assessment and Plan: Stable. Denied any blood bowel movements. Unknown baseline. No sign of occult bleed but could be worsened due to hematoma of left pelvis. Baseline H&H is around 8-9. Currently 10.0 Pending B12 and Iron studies Transfuse below 8 (9) CAD (coronary artery disease) Current Visit: Yes Status: Chronic Assessment and Plan: Patient with history of severe coronary artery disease status post CABG On dual antiplatelets We will continue Plavix and statin. Holding lisinopril as she is hypotensive (10) DVT prophylaxis Current Visit: Yes Status: Acute Assessment and Plan: Heparin SubQ (11) Urinary tract infection Current Visit: Yes Status: Acute Assessment and Plan: Yesterday, 02/27/18 has low urinary output. She also had an FLO. Urinalysis suggested urinary tract infection. She was started on ciprofloxacin, day 2. She is responding to it and having decent urinary output. Her FLO has also resolved. - Time Spent with Patient Total time spent is greater than 50% in coordination of care (as documented) at patient's floor/unit and/or counseling patient: Internal Medicine: Result - Labs CBC & Chem 7: 02/28/18 12:12 02/28/18 05:35 Labs: Short CBC 02/27/18 02/28/18 02/28/18 Range/Units 14:39 05:35 05:35 WBC 12.4 H 12.2 H (4.3-11.1) K/mcL Hgb 10.3 L 10.0 L 10.0 L (11.5-15.4) g/dL Hct 33.2 L 31.8 L 31.9 L (35.3-44.9) % Plt Count 155 157 (140-400) K/mcL Neutrophils # 9.4 H (1.6-8.9) K/mcL BMP 02/28/18 05:35 Sodium 135 L Potassium 4.4 Chloride 102 Carbon Dioxide 25 BUN 23 Creatinine 0.99 Glucose 172 H Calcium 9.0 Urine 02/27/18 Range/Units 12:15 Urine Color Dark Yellow (Yellow) Urine Clarity Turbid A (Clear) Urine pH 5.0 (5.0-8.0) pH Units Ur Specific [place] 1.022 (1.010-1.025) Urine Protein 100 H (Neg-Trace) mg/dL Urine Glucose (UA) Normal (Normal) mg/dL - ABG Interpretation ABG results: ABG ABG pH 7.36 pH Units (7.32-7.45) 02/27/18 17:04 ABG pCO2 51 mmHg (35-45) H 02/27/18 17:04 ABG pO2 60 mmHg (85-104) L 02/27/18 17:04 ABG O2 Saturation 89 % (95-98) L 02/27/18 17:04 PT/INR, D-dimer PT 13.2 Seconds (9.4-12.1) H 02/26/18 08:20 - Impressions Impressions Chest X-Ray 02/27/18 11:22 IMPRESSION: Stable cardiomegaly. Mild pulmonary vascular congestion. Low lung volumes with stable asymmetric elevation of the left hemidiaphragm. Atelectasis at the left lung base. Minimal bilateral pleural effusions. D/ / Vishal Lopes MD / Vishal Loeps MD Interpreting Provider: Vishal Lopes MD - VTE Documentation of Mechanical Device: Intermittent pneumatic compression device Consult Discharge Plan - Plan Referrals: Vane Mckee CNP [Primary Care Provider] - <Ankur Soliz - Last Filed: 02/28/18 17:14> Hospitalist Progress Note - Encounter Date of Encounter: 02/28/18 - Exam Vitals: Temp Pulse Resp BP Pulse Ox 98.1 F 86 17 133/74 94 02/28/18 16:42 02/28/18 16:42 02/28/18 16:42 02/28/18 16:42 02/28/18 16:42 - Assessment and Plan (1) Proximal humerus fracture Current Visit: Yes Status: Acute (2) Pubic ramus fracture Current Visit: Yes Status: Acute (3) Fall Current Visit: Yes Status: Acute (4) Diabetes mellitus Current Visit: Yes Status: Chronic (5) Chronic kidney disease Current Visit: Yes Status: Chronic (6) Hematoma Current Visit: Yes Status: Acute (7) Chronic anemia Current Visit: Yes Status: Acute (8) DVT prophylaxis Current Visit: Yes Status: Acute (9) CAD (coronary artery disease) Current Visit: Yes Status: Chronic (10) Hypotension Current Visit: Yes Status: Acute (11) Urinary tract infection Current Visit: Yes Status: Acute - Time Spent with Patient Total time spent is greater than 50% in coordination of care (as documented) at patient's floor/unit and/or counseling patient: Internal Medicine: Result - Labs CBC & Chem 7: 02/28/18 12:12 02/28/18 05:35 Labs: Short CBC 02/28/18 02/28/18 02/28/18 Range/Units 05:35 05:35 12:12 WBC 12.4 H 12.2 H (4.3-11.1) K/mcL Hgb 10.0 L 10.0 L 10.6 L (11.5-15.4) g/dL Hct 31.8 L 31.9 L 33.4 L (35.3-44.9) % Plt Count 155 157 (140-400) K/mcL Neutrophils # 9.4 H (1.6-8.9) K/mcL BMP 02/28/18 05:35 Sodium 135 L Potassium 4.4 Chloride 102 Carbon Dioxide 25 BUN 23 Creatinine 0.99 Glucose 172 H Calcium 9.0 - ABG Interpretation ABG results: ABG ABG pH 7.36 pH Units (7.32-7.45) 02/27/18 17:04 ABG pCO2 51 mmHg (35-45) H 02/27/18 17:04 ABG pO2 60 mmHg (85-104) L 02/27/18 17:04 ABG O2 Saturation 89 % (95-98) L 02/27/18 17:04 PT/INR, D-dimer PT 13.2 Seconds (9.4-12.1) H 02/26/18 08:20 - Attending Attestation I have seen and examined this patient independently. I have discussed with resident physician Dr Neal regarding the management plan. Agree with the documentation. <Farrah Neal - Last Filed: 02/28/18 16:55> (1) Proximal humerus fracture Qualifiers: Encounter type: initial encounter Fracture type: closed Qualified Code(s): S42.209A - Unspecified fracture of upper end of unspecified humerus, initial encounter for closed fracture (2) Pubic ramus fracture Qualifiers: Qualified Code(s): S32.599A - Other specified fracture of unspecified pubis, initial encounter for closed fracture (5) Fall Qualifiers: Encounter type: initial encounter Qualified Code(s): W19.XXXA - Unspecified fall, initial encounter (6) Diabetes mellitus Qualifiers: Diabetes mellitus type: type 2 Diabetes mellitus long-term insulin use: with long term care pharmacist use Diabetes mellitus complication status: with unspecified complications Qualified Code(s): E11.8 - Type 2 diabetes mellitus with unspecified complications; Z79.4 - terminal operations manager (current) use of insulin (7) Chronic kidney disease Qualifiers: Chronic kidney disease stage: unspecified stage Qualified Code(s): N18.9 - Chronic kidney disease, unspecified <Ankur Soliz - Last Filed: 02/28/18 17:14> (1) Proximal humerus fracture Qualifiers: Encounter type: initial encounter Fracture type: closed Qualified Code(s): S42.209A - Unspecified fracture of upper end of unspecified humerus, initial encounter for closed fracture (2) Pubic ramus fracture Qualifiers: Qualified Code(s): S32.599A - Other specified fracture of unspecified pubis, initial encounter for closed fracture (3) Fall Qualifiers: Encounter type: initial encounter Qualified Code(s): W19.XXXA - Unspecified fall, initial encounter (4) Diabetes mellitus Qualifiers: Diabetes mellitus type: type 2 Diabetes mellitus long term care pharmacist insulin use: with long-term use Diabetes mellitus complication status: with unspecified complications Qualified Code(s): E11.8 - Type 2 diabetes mellitus with unspecified complications; Z79.4 - terminal operations manager (current) use of insulin (5) Chronic kidney disease Qualifiers: Chronic kidney disease stage: unspecified stage Qualified Code(s): N18.9 - Chronic kidney disease, unspecified
--- NOTE | 2018-02-28 11:51 | Nephrology Progress Note ---
Date of Encounter: 02/28/18 Time of Encounter: 11:49 - Assessment and Plan (1) FLO (acute kidney injury) Current Visit: Yes Status: Acute FLO improving. GFR 56, Scr 0.99. She has an appt 04/04/[address] Francis to establish as new patient. She is near baseline, renal will sign off and she can follow up in March with Dr. Francis. BMP 7 days after d/c. Strict I/O Avoid nephrotxoins and renal dose. (2) Chronic anemia Current Visit: Yes Status: Acute Goal Hgb is 10-11. Hgb is 10 today, stable. (3) Fall Current Visit: Yes Status: Acute Mechanical fall. Per primary Qualifiers: Encounter type: initial encounter Qualified Code(s): W19.XXXA - Unspecified fall, initial encounter (4) Proximal humerus fracture Current Visit: Yes Status: Acute Per Ortho. Qualifiers: Encounter type: initial encounter Fracture type: closed Qualified Code(s): S42.209A - Unspecified fracture of upper end of unspecified humerus, initial encounter for closed fracture (5) Pubic ramus fracture Current Visit: Yes Status: Acute Per ortho. Qualifiers: Qualified Code(s): S32.599A - Other specified fracture of unspecified pubis, initial encounter for closed fracture Subjective Principal diagnosis: FX Humerus, FX Pelvis Interval history: Pt seen and examined, doing well. Denies any CP or SOB. Denies any nausea, vomiting, or diarrhea. Objective - Vital Signs Vital signs: Vital Signs Temp Pulse Resp BP Pulse Ox 02/28/18 07:25 97.9 F 93 16 97/67 98 02/28/18 03:16 97.9 F 108 16 131/68 98 02/27/18 22:59 98.0 F 106 16 138/80 100 02/27/18 21:00 98 02/27/18 19:00 98 02/27/18 18:58 97.3 F L 106 15 141/84 98 02/27/18 15:23 98.6 F 113 18 118/66 93 02/27/18 12:51 92 Intake and Output 02/27/18 02/28/18 02/28/18 23:59 07:59 15:59 Intake Total 1000 / 1000 240 / 240 Output Total 900 / 900 400 / 400 Balance 100 / 100 -400 / -400 240 / 240 Intake: IV Fluids 1000 / 1000 0.9 % Sodium Chloride 1,000 ML 1000 / 1000 @ 100 mls/hr IVC .Q10H [facility] Rx#: [id number] Oral 240 / 240 Output: Catheter 900 / 900 400 / 400 Other: Meal Breakfast Percent of Meal Consumed 10% Weight 97.9 kg Blood Glucose* 225 173 Patient Weight 02/28/18 23:59 Weight 97.9 kg - General Appearance General appearance: Present: well-developed, well-nourished EENT: Present: ATNC, hearing intact, vision intact Neck: Present: supple Respiratory: Present: clear Cardiology: Present: no edema, normal S1, normal S2 Gastrointestinal: Present: normoactive bowel sounds, no tenderness, no guarding Integumentary: Present: no rash, warm and dry Neurologic: Present: alert and oriented x3 Psychiatric: Present: mood/affect appropriate, cooperative - Lab 02/28/18 05:35 02/28/18 05:35 Most recent lab results ABG pH 7.36 pH Units (7.32-7.45) 02/27/18 17:04 ABG pCO2 51 mmHg (35-45) H 02/27/18 17:04 ABG pO2 60 mmHg (85-104) L 02/27/18 17:04 ABG HCO3 29 mEq/L (21-27) H 02/27/18 17:04 ABG O2 Saturation 89 % (95-98) L 02/27/18 17:04 Calcium 9.0 mg/dL (8.6-10.3) 02/28/18 05:35 Urine Creatinine 260 mg/dL 02/27/18 13:50 Urine Total Protein 95 mg/dL (1-14) H 02/27/18 13:50 - VTE Documentation of Mechanical Device: Intermittent pneumatic compression device Consult Discharge Plan - Plan Referrals: Vane Mckee ENTERPRISE PROJECT MANAGER [Primary Care Provider] -
[2018-02-28 16:14] LABS: Hematocrit 33.4 % (35.3-44.9); Hemoglobin 10.6 g/dL (11.5-15.4)
[2018-02-28] MEDS: *HR* HYDROcodone/Acet 5/325 mg TABLET PO PRN (17:08)
--- NOTE | 2018-02-28 18:19 | Orthopedics Progress Note ---
Date of Encounter: 02/28/18 Time of Encounter: 18:18 - Assessment and Plan (1) Fall Current Visit: Yes Status: Acute Qualifiers: Encounter type: initial encounter Qualified Code(s): W19.XXXA - Unspecified fall, initial encounter Subjective Principal diagnosis: FX Humerus, FX Pelvis Interval history: S: The patient is resting comfortably in bed without new complaints Pain is controlled to the left shoulder and pelvic region She has been up to use the bathroom and was put weight down on her lower extremities. She has a hemiwalker at the bedside. O: Afebrile on the vital signs are stable Left upper extremity is in a sling She is neurovascularly intact distally Minimal pain over the pelvis and symphysis region to touch Neurovascularly intact distally on the bilateral lower extremities A: Stable pelvic ring injury Left proximal humerus fracture P: My recommendation is for nonoperative management of both fractures at this time. Repeat x-rays in 1 week. Weightbearing as tolerated on bilateral lower extremities and right upper extremity. Nonweightbearing on the left upper extremity. Sling for the left upper extremity. Physical and occupational therapy. Objective Vital signs: Vital Signs Temp Pulse Resp BP Pulse Ox 02/28/18 16:42 98.1 F 86 17 133/74 94 02/28/18 11:54 97.7 F 106 18 135/74 96 02/28/18 07:25 97.9 F 93 16 97/67 98 02/28/18 03:16 97.9 F 108 16 131/68 98 02/27/18 22:59 98.0 F 106 16 138/80 100 02/27/18 21:00 98 02/27/18 19:00 98 02/27/18 18:58 97.3 F L 106 15 141/84 98 Intake and Output 02/28/18 02/28/18 02/28/18 07:59 15:59 23:59 Intake Total 480 / 480 240 / 240 Output Total 400 / 400 400 / 400 Balance -400 / -400 80 / 80 240 / 240 Intake: Oral 480 / 480 240 / 240 Output: Catheter 400 / 400 400 / 400 Other: Meal Lunch Dinner Percent of Meal Consumed 30% 60% Weight 97.9 kg Blood Glucose* 173 240 224 Patient Weight 02/28/18 23:59 Weight 97.9 kg - Labs CBC & BMP: 02/28/18 12:12 02/28/18 05:35 Labs: Abnormal lab results WBC 12.4 K/mcL (4.3-11.1) H 02/28/18 05:35 RBC 3.35 M/mcL (3.82-4.97) L 02/28/18 05:35 Hgb 10.6 g/dL (11.5-15.4) L 02/28/18 12:12 Hct 33.4 % (35.3-44.9) L 02/28/18 12:12 MCHC 31.4 g/dL (31.6-35.5) L 02/28/18 05:35 RDW 15.8 % (11.5-14.5) H 02/28/18 05:35 Neutrophils # 9.4 K/mcL (1.6-8.9) H 02/28/18 05:35 PT 13.2 Seconds (9.4-12.1) H 02/26/18 08:20 ABG pCO2 51 mmHg (35-45) H 02/27/18 17:04 ABG pO2 60 mmHg (85-104) L 02/27/18 17:04 ABG HCO3 29 mEq/L (21-27) H 02/27/18 17:04 ABG Total CO2 30 mEq/L (20-26) H 02/27/18 17:04 ABG O2 Saturation 89 % (95-98) L 02/27/18 17:04 Sodium 135 mEq/L (136-145) L 02/28/18 05:35 Est GFR (Non-Af Amer) 56 (> 60) L 02/28/18 05:35 Glucose 172 mg/dL (70-105) H 02/28/18 05:35 POC Glucose 225 mg/dL (70-99) H 02/27/18 20:02 Hemoglobin A1c 8.5 % (-5.6) H 02/27/18 04:53 Urine Clarity Turbid (Clear) A 02/27/18 12:15 Urine Protein 100 mg/dL (Neg-Trace) H 02/27/18 12:15 Urine Blood Large (Negative) H 02/27/18 12:15 Urine Bilirubin Moderate (Negative) H 02/27/18 12:15 Ur Leukocyte Esterase Moderate (Negative) H 02/27/18 12:15 Urine Microscopic RBC 5-15 per hpf (0-3) H 02/27/18 12:15 Urine Microscopic WBC TNTC per hpf (0-3) H 02/27/18 12:15 Ur Squamous Epith Cells Moderate per lpf (None-Few) H 02/27/18 12:15 Ur Culture Indicated? YES (NO) A 02/27/18 12:15 Protein/Creatinin Ratio 0.37 mg/mg (0.00-0.20) H 02/27/18 13:50 Urine Total Protein 95 mg/dL (1-14) H 02/27/18 13:50 - VTE Documentation of Mechanical Device: Intermittent pneumatic compression device Consult Discharge Plan - Plan Referrals: Vane Mckee ASSISTANT HEAD CASHIER [Primary Care Provider] -
[2018-03-01] MEDS: *HR* HYDROcodone/Acet 5/325 mg TABLET PO PRN ×2 (04:03→11:21)
[2018-03-01] MEDS: *HR* Heparin 5,000 UNIT/ML VIAL SQ SCH ×2 (06:56→18:14)
[2018-03-01] MEDS: OXYCODONE Oral CONC 10 MG/0.5 ML ORAL.SYG SL PRN ×3 (07:30→21:41)
[2018-03-01 07:59] LABS: Basophils # 0.1 K/mcL (0.0-0.2); Basophils % 0.6 %; Eosinophils # 0.1 K/mcL (0.0-0.6); Eosinophils % 1.1 %; Hematocrit 33.9 % (35.3-44.9); Hemoglobin 10.4 g/dL (11.5-15.4); Immature Granulocytes % 0.8 % (0-4); Lymphocytes # 0.9 K/mcL (0.6-4.6); Lymphocytes % 8.6 %; Mean Corpuscular HGB Conc 30.7 g/dL (31.6-35.5); Mean Corpuscular Hemoglobin 29.4 pg (28.0-33.3); Mean Corpuscular Volume 95.8 fL (83.0-100.0); Mean Platelet Volume 10.7 fL (9.4-12.4); Monocytes # 0.9 K/mcL (0.0-1.3); Monocytes % 8.5 %; Neutrophils # 8.3 K/mcL (1.6-8.9); Nucleated Red Blood Cells 0.3 /100 WBC (0); Platelet Count 185 K/mcL (140-400); Red Blood Count 3.54 M/mcL (3.82-4.97); Red Cell Distribution Width 15.5 % (11.5-14.5); Segmented Neutrophils % 80.4 %
[2018-03-01 08:07] LABS: % Iron Saturation 17 % (15-50); BUN/Creatinine Ratio 25 (6-26); Blood Urea Nitrogen 21 mg/dL (8-23); Calcium 9.1 mg/dL (8.6-10.3); Carbon Dioxide 28 mEq/L (23-29); Chloride 102 mEq/L (98-107); Glucose 244 mg/dL (70-105); Iron 43 mcg/dL (50-170); Osmolality,Calculated 291 (280-300); Potassium 4.3 mEq/L (3.5-5.1); Sodium 135 mEq/L (136-145); Transferrin 184 mg/dL (203-362); eGFR For Non-African Americans > 60 (> 60)
--- NOTE | 2018-03-01 08:34 | Discharge Summary ---
<Xavi Bull - Last Filed: 03/01/18 13:45> Orders not resulted at time of discharge: Pending orders 02/27/18 13:50 Immunofixation,Urine (BJP) Routine 02/27/18 16:17 Creatinine,Urine [UCHEM] Routine Sodium, Urine [UCHEM] Routine 02/28/18 05:35 RHONDA IgG [place] rflx IFA AM 0400 [place] Lambda Qnt FLC w Ratio AM 0400 MPO/PR3 (ANCA) Antibodies Routine Protein Electrophoresis AM 0400 03/01/18 07:32 Vitamin B12 AM 0400 03/01/18 16:00 US retroperitoneal comp [US] Routine Date of Encounter: 03/01/18 Time of Encounter: 08:28 - Discharge Diagnosis (1) Proximal humerus fracture Priority: Primary Status: Acute Qualifiers: Encounter type: initial encounter Fracture type: closed Fracture morphology: other fracture Fracture alignment: nondisplaced Laterality: left Qualified Code(s): S42.295A - Other nondisplaced fracture of upper end of left humerus, initial encounter for closed fracture (2) Pubic ramus fracture Priority: Secondary Status: Acute Qualifiers: Qualified Code(s): S32.599A - Other specified fracture of unspecified pubis, initial encounter for closed fracture (3) Fall Priority: Secondary Status: Acute Qualifiers: Encounter type: initial encounter Qualified Code(s): W19.XXXA - Unspecified fall, initial encounter (4) Diabetes mellitus Priority: Secondary Status: Chronic Qualifiers: Diabetes mellitus type: type 2 Diabetes mellitus longterm insulin use: with longterm use Diabetes mellitus complication status: with unspecified complications Qualified Code(s): E11.8 - Type 2 diabetes mellitus with unspecified complications; Z79.4 - [facility] (current) use of insulin (5) Chronic kidney disease Priority: Secondary Status: Chronic Qualifiers: Chronic kidney disease stage: unspecified stage Qualified Code(s): N18.9 - Chronic kidney disease, unspecified (6) Hematoma Priority: Secondary Status: Acute (7) Chronic anemia Priority: Secondary Status: Acute (8) DVT prophylaxis Priority: Secondary Status: Acute (9) CAD (coronary artery disease) Priority: Secondary Status: Chronic Qualifiers: Coronary Disease-Associated Artery/Lesion type: [place] artery [place] vs. transplanted heart: [place] heart Associated angina: without angina Qualified Code(s): I25.10 - Atherosclerotic heart disease of [place] coronary artery without angina pectoris (10) Hypotension Priority: Secondary Status: Resolved Qualifiers: Hypotension type: hypotension due to drug Qualified Code(s): I95.2 - Hypotension due to drugs (11) Urinary tract infection Priority: Secondary Status: Resolved Qualifiers: Urinary tract infection type: acute cystitis Hematuria presence: without hematuria Qualified Code(s): N30.00 - Acute cystitis without hematuria Hospital course: Ms. Fitzpatrick is a 67 year old female presented with chief complaint of mechanical fall where patient slipped when walking into a store and fell on her left side. Patient was found to have a left proximal humerus fracture without significant displacement as well as pelvic ring injury and following the superior and inferior pubic ramus. Orthopedic surgery was consulted and recommended conservative management. On's pelvis CT it was also noted that patient had a soft tissue hematoma on the left superior and inferior pubic rami measuring 2.3 x 5.7 cm. Patient's hemoglobin remained stable throughout her stay. Nephrology was consulted due to FLO on CKD this was likely secondary to dehydration. Patient's a CAT resolved after IV fluids. PT OT recommended inpatient rehabilitation. Patient also will follow-up with nephrology outpatient. She was also treated for UTI for 3 days with ciprofloxacin. The more patient was found to have a hemoglobin A1c of 8.5. Patient will follow-up with PCP in 7 days. Discharge discussed with: patient, family - Time Spent with Patient Total time spent providing and/or coordinating discharge services: - Discharge Medications Prescriptions: RX: OxyCODONE/APAP 10/325 [Percocet 10/325 MG] 1 tab PO BID PRN 7 Days #14 tablet PRN Reason: Pain Home Medications: RX: Calcium Carbonate/Vitamin D3 [Calcium 600-Vit D3 400 Tablet] 1 each PO DAILY 03/02/17 [History] RX: Clopidogrel [Plavix] 75 mg PO DAILY 03/02/17 [History] RX: Gabapentin [Neurontin] 800 mg PO QID 03/02/17 [History] RX: Insulin ASPART [Novolog Flexpen] 0 unit SQ ACHS 03/02/17 [History] RX: Insulin Glargine [Lantus] 35 unit SQ HS 03/02/17 [History] RX: Lisinopril [Zestril] 10 mg PO DAILY 03/02/17 [History] RX: Aspirin 81 mg PO DAILY #30 tab.chew 03/05/17 [Rx] RX: Atorvastatin [Lipitor] 40 mg PO HS #30 tablet 03/05/17 [Rx] RX: Pantoprazole Sodium [Protonix] 20 mg PO BID #30 tablet.dr 03/05/17 [Rx] RX: Insulin Glargine [Lantus] 20 unit SQ QAM 02/26/18 [History] RX: Carvedilol [Coreg] 6.25 mg PO BIDWM 02/28/18 [History] RX: Cholecalciferol (D-3) [Vitamin D] 2,000 unit PO DAILY 02/28/18 [History] RX: Duloxetine HCl [Cymbalta] 60 mg PO BID 02/28/18 [History] RX: Ferrous Sulfate [Iron] 325 mg PO DAILY 02/28/18 [History] RX: Ipratropium [place] 2 spr NS BID 02/28/18 [History] RX: Levothyroxine [Synthroid] 25 mcg PO DAILY 02/28/18 [History] RX: MOM Conc [MILK OF MAGNESIA conc] 10 ml PO DAILY PRN ud.liq 03/01/18 [Rx] RX: OxyCODONE/APAP 10/325 [Percocet 10/325 MG] 1 tab PO BID PRN 7 Days #14 tablet 03/01/18 [Rx] Allergies/Adverse Reactions: Allergy/AdvReac Type Severity Reaction Status Date / Time codeine AdvReac Nausea Verified 10/01/15 10:27 Date of admission: 02/27/18 23:28 Primary care physician: SAMANTHA Reilly Consults: 02/26/18 05:24 Consult to Orthopedic Surgery [CONS] Routine Consulting Provider: Uvaldo Juarez Reason for Consult: Transfer from [facility] ED for Left Humerus and Left pubic rami fractures. Sending ER provider spoke with Dr Juarez. Call Completed: Yes 02/26/18 18:05 Consult to Occupational Therapy [CONS] Routine Comment: Evaluate, develop and implement POC Reason for Consult: pelvic fracture, left humerus distal fracture. non-op Does patient have active BEDREST order?: No Is patient medically & hemodynamically stable?: Yes Consult to Physical Therapy [CONS] Routine Comment: Evaluate, develop and implement POC Reason for Consult: pubic fracture, distal humerus fracture. Non-op Does patient have active BEDREST order?: No Is patient medically & hemodynamically stable?: Yes Consult to Director Economic [CONS] Routine Reason for SW Consult: discharge planning 02/27/18 06:40 Consult to Nephrology [CONS] Routine Consulting Provider: [facility] [place]/ORIMI/NORIS/FEL[facility] Reason for Consult: Acute on chronic renal failure. Call Completed: No Discharging clinician: Xavi Bull Anticipated date of discharge: 03/01/18 - Constitutional Vitals: Temp Pulse Resp BP Pulse Ox 97.9 F 101 18 154/83 99 03/01/18 06:55 03/01/18 06:55 03/01/18 06:55 03/01/18 06:55 03/01/18 06:55 Exam: General: Patient is alert, oriented, no acute distress, obese Head: atraumatic, normocephalic, Eye: normal appearance, PERRL, ENT: mucous membranes moist, normal external ear exam Respiratory: Good respiratory effort. No wheeze, crackles or rhonchi. Cardiovascular: Regular rate and rhythm. s1 and s2 No clicks, rubs, gallops, or murmurs. Abdomen: Bowel sounds present normoactive x-4 quadrants. Abdomen is soft, nondistended. no epigastric tenderness. No guarding or rebound. Musculoskeletal: Spontaneously moving all extremities. no edema, no calf tenderness Skin: warm, dry, intact. Neuro: Alert and oriented x3. Psych: Calm, not anxious - Patient Status Disposition: Transfer Inpatient Rehab Fac Overall status at discharge: patient is progressing back to baseline - Discharge Instructions Follow Up With: Vane Mckee MEDICAL DERMATOLOGIST [Primary Care Provider] - - Diet and Activity Activity: as per physical therapy Diet: diabetic diet, low fat, low cholesterol, low salt diet - VTE Documentation of Mechanical Device: Intermittent pneumatic compression device <Ankur Soliz - Last Filed: 03/01/18 15:26> Orders not resulted at time of discharge: Pending orders 02/27/18 13:50 Immunofixation,Urine (BJP) Routine 02/27/18 16:17 Creatinine,Urine [UCHEM] Routine Sodium, Urine [UCHEM] Routine 02/28/18 05:35 RHONDA IgG [place] rflx IFA AM 0400 [place] Lambda Qnt FLC w Ratio AM 0400 MPO/PR3 (ANCA) Antibodies Routine Protein Electrophoresis AM 0400 03/01/18 16:00 US retroperitoneal comp [US] Routine Date of Encounter: 03/01/18 - Discharge Diagnosis (1) Proximal humerus fracture Status: Acute Qualifiers: Encounter type: initial encounter Fracture type: closed Fracture morphology: other fracture Fracture alignment: nondisplaced Laterality: left Qualified Code(s): S42.295A - Other nondisplaced fracture of upper end of left humerus, initial encounter for closed fracture (2) Pubic ramus fracture Status: Acute Qualifiers: Qualified Code(s): S32.599A - Other specified fracture of unspecified pubis, initial encounter for closed fracture (3) Fall Status: Acute Qualifiers: Encounter type: initial encounter Qualified Code(s): W19.XXXA - Unspecified fall, initial encounter (4) Diabetes mellitus Status: Chronic Qualifiers: Diabetes mellitus type: type 2 Diabetes mellitus longterm insulin use: with bed bug exterminator use Diabetes mellitus complication status: with unspecified complications Qualified Code(s): E11.8 - Type 2 diabetes mellitus with unspecified complications; 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 transplanted heart: [place] heart Associated angina: without angina Qualified Code(s): I25.10 - Atherosclerotic heart disease of [place] coronary artery without angina pectoris (10) Hypotension Status: Resolved Qualifiers: Hypotension type: hypotension due to drug Qualified Code(s): I95.2 - Hypotension due to drugs (11) Urinary tract infection Status: Resolved Qualifiers: Urinary tract infection type: acute cystitis Hematuria presence: without hematuria Qualified Code(s): N30.00 - Acute cystitis without hematuria Hospital course: Ms. Fitzpatrick is a 67 year old female - Time Spent with Patient Total time spent providing and/or coordinating discharge services: Date of admission: 02/27/18 23:28 Primary care physician: SAMANTHA Reilly Consults: 02/26/18 05:24 Consult to Orthopedic Surgery [CONS] Routine Consulting Provider: Uvaldo Juarez Reason for Consult: Transfer from [facility] ED for Left Humerus and Left pubic rami fractures. Sending ER provider spoke with Dr Juarez. Call Completed: Yes 02/26/18 18:05 Consult to Occupational Therapy [CONS] Routine Comment: Evaluate, develop and implement POC Reason for Consult: pelvic fracture, left humerus distal fracture. non-op Does patient have active BEDREST order?: No Is patient medically & hemodynamically stable?: Yes Consult to Physical Therapy [CONS] Routine Comment: Evaluate, develop and implement POC Reason for Consult: pubic fracture, distal humerus fracture. Non-op Does patient have active BEDREST order?: No Is patient medically & hemodynamically stable?: Yes Consult to Director Economic [CONS] Routine Reason for SW Consult: discharge planning 02/27/18 06:40 Consult to Nephrology [CONS] Routine Consulting Provider: Kidney [place]/ORIMI/NORIS/FEL[place] Reason for Consult: Acute on chronic renal failure. Call Completed: No - Constitutional Vitals: Temp Pulse Resp BP Pulse Ox 97.9 F 104 16 138/87 97 03/01/18 14:08 03/01/18 14:08 03/01/18 14:08 03/01/18 14:08 03/01/18 14:08 - Attending Attestation I have seen and examined this patient independently. I have discussed with resident physician Dr Bull regarding the discharge and follow up plan. Agree with the documentation.
[2018-03-01] MEDS ORDERED: Ondansetron 4 MG/2 ML VIAL IVP PRN (08:39)
--- NOTE | 2018-03-01 08:39 | Physician Discharge Referral ---
[facility] Referral Info Transfer To: [facility] Provider in Charge: Dr. Bain Provider in Charge after Transfer: PCP Institutional Level of Care: Skilled - Diagnosis (1) Proximal humerus fracture Priority: Primary Status: Acute (2) Pubic ramus fracture Priority: Secondary Status: Acute (3) Fall Priority: Secondary Status: Acute (4) Diabetes mellitus Priority: Secondary Status: Chronic (5) Chronic kidney disease Priority: Secondary Status: Chronic (6) Hematoma Priority: Secondary Status: Acute (7) Chronic anemia Priority: Secondary Status: Acute (8) DVT prophylaxis Priority: Secondary Status: Acute (9) CAD (coronary artery disease) Priority: Secondary Status: Chronic (10) Hypotension Priority: Secondary Status: Resolved (11) Urinary tract infection Priority: Secondary Status: Acute Prognosis: Fair Aware of Diagnosis: Patient, Family Aware of Prognosis: Patient, Family - Transfer Medications Prescriptions: OxyCODONE/APAP 10/325 [Percocet 10/325 MG] 1 tab PO BID PRN 7 Days #14 tablet PRN Reason: Pain Home Medications: Calcium Carbonate/Vitamin D3 [Calcium 600-Vit D3 400 Tablet] 1 each PO DAILY 03/02/17 [History] Clopidogrel [Plavix] 75 mg PO DAILY 03/02/17 [History] Gabapentin [Neurontin] 800 mg PO QID 03/02/17 [History] Insulin ASPART [Novolog Flexpen] 0 unit SQ ACHS 03/02/17 [History] Insulin Glargine [Lantus] 35 unit SQ HS 03/02/17 [History] Lisinopril [Zestril] 10 mg PO DAILY 03/02/17 [History] Aspirin 81 mg PO DAILY #30 tab.chew 03/05/17 [Rx] Atorvastatin [Lipitor] 40 mg PO HS #30 tablet 03/05/17 [Rx] Pantoprazole Sodium [Protonix] 20 mg PO BID #30 tablet.dr 03/05/17 [Rx] Insulin Glargine [Lantus] 20 unit SQ QAM 02/26/18 [History] Carvedilol [Coreg] 6.25 mg PO BIDWM 02/28/18 [History] Cholecalciferol (D-3) [Vitamin D] 2,000 unit PO DAILY 02/28/18 [History] Duloxetine HCl [Cymbalta] 60 mg PO BID 12/18/18 [History] Ferrous Sulfate [Iron] 325 mg PO DAILY 02/28/18 [History] Ipratropium [place] 2 spr NS BID 02/28/18 [History] Levothyroxine [Synthroid] 25 mcg PO DAILY 02/28/18 [History] MOM Conc [MILK OF MAGNESIA conc] 10 ml PO DAILY PRN ud.liq 03/01/18 [Rx] OxyCODONE/APAP 10/325 [Percocet 10/325 MG] 1 tab PO BID PRN 7 Days #14 tablet 03/01/18 [Rx] Allergies/Adverse Reactions: Allergy/AdvReac Type Severity Reaction Status Date / Time codeine AdvReac Nausea Verified 10/01/15 10:27 - Respiratory Orders Oxygen / L per min (3L) Smoking Cessation: Smoking cessation has been advised. For more information, call the [place] Tobacco Quit Line at 7-589-LZQY-NOW. - Advance Directives Code Status: Full Code - Mobility Orders Chair, Ambulate (with assist) - Rehabiliation Orders Rehab Potential: Good Rehab Orders: ROM Exercises, Evaluation for Physical Therapy, Evaluation for Occupational Therapy - Treatments Skin tear care topically daily PRN per policy - Diet Orders No Concentrated Sweets, Cardiac CERTIFICATION: I certify that the transfer of the above named patient to an Extended Care Facility is necessary for the continuing treatment of the diagnosis listed. The above information is true and accurate reflection of patient's current condition. Confidential - Redisclosure prohibited without a patient's written consent.
[2018-03-01] MEDS: Insulin LISPRO 300 UNITS/3 ML VIAL SQ SCH ×4 (11:09→21:42)
[2018-03-01] MEDS: Cholecalciferol (D-3) 1,000 UNIT TABLET PO SCH (11:21)
[2018-03-01] MEDS: Gabapentin 400 MG CAPSULE PO SCH ×4 (11:21→21:50)
[2018-03-01] MEDS: Aspirin 81 MG TAB.CHEW PO SCH (11:21)
[2018-03-01] MEDS: FLUoxetine 20 MG CAPSULE PO SCH (11:22)
[2018-03-01] MEDS: Insulin DETEMIR 100 UNIT/ML X5UNITS SQ SCH ×3 (11:28→21:41)
[2018-03-02] MEDS: *HR* HYDROcodone/Acet 5/325 mg TABLET PO PRN ×2 (00:13→12:29)
[2018-03-02 01:41] LABS: Kappa Qnt Free Light Chains 2.76 mg/dL (0.33-1.94); Lambda Qnt Free Light Chains 2.03 mg/dL (0.57-2.63)
[2018-03-02 01:44] LABS: Urine Collection Duration RANDOM hr; Urine Collection Volume RANDOM mL
[2018-03-02] MEDS: OXYCODONE Oral CONC 10 MG/0.5 ML ORAL.SYG SL PRN (05:10)
[2018-03-02] MEDS: *HR* Heparin 5,000 UNIT/ML VIAL SQ SCH (06:31)
[2018-03-02] MEDS: Aspirin 81 MG TAB.CHEW PO SCH (07:56)
[2018-03-02] MEDS: Insulin LISPRO 300 UNITS/3 ML VIAL SQ SCH ×2 (07:56→11:41)
[2018-03-02] MEDS: Cholecalciferol (D-3) 1,000 UNIT TABLET PO SCH (07:57)
[2018-03-02] MEDS: FLUoxetine 20 MG CAPSULE PO SCH (07:57)
[2018-03-02] MEDS: Gabapentin 400 MG CAPSULE PO SCH ×2 (07:57→11:41)
[2018-03-02] MEDS: Insulin DETEMIR 100 UNIT/ML X5UNITS SQ SCH (08:01)
--- NOTE | 2018-03-02 09:47 | Internal Med Progress Note ---
<Xavi Bulluma - Last Filed: 03/02/18 09:44> Hospitalist Progress Note - Encounter Date of Encounter: 03/02/18 Time of Encounter: 09:45 - Subjective Interval History: NO acute events overnight. Patient is tolerating her diet. She has not complaints. She is awaiting placement. - Exam Vitals: Temp Pulse Resp BP Pulse Ox 98.5 F 78 16 118/74 97 03/02/18 06:38 03/02/18 06:38 03/02/18 06:38 03/02/18 06:38 03/02/18 06:38 Exam: General: Patient is alert, oriented, no acute distress, obese Head: atraumatic, normocephalic, Eye: normal appearance, PERRL, ENT: mucous membranes moist, normal external ear exam Respiratory: Good respiratory effort. No wheeze, crackles or rhonchi. Cardiovascular: Regular rate and rhythm. s1 and s2 No clicks, rubs, gallops, or murmurs. Abdomen: Bowel sounds present normoactive x-4 quadrants. Abdomen is soft, nondistended. no epigastric tenderness. No guarding or rebound. Musculoskeletal: Spontaneously moving all extremities. no edema, no calf tenderness Skin: warm, dry, intact. Neuro: Alert and oriented x3. Psych: Calm, not anxious - Assessment and Plan (1) Proximal humerus fracture Status: Acute Assessment and Plan: Pain is controlled. Left proximal humerus fracture without significant displacement awaiting placement to laurent swing bed. (2) Pubic ramus fracture Status: Acute Assessment and Plan: Ramus fracture secondary to mechanical fall: CT shows: 1. Left superior and inferior pubic rami fractures with 2.3 x 5.7 cm posttraumatic soft tissue hematoma. 2. Bilateral hip and SI joint osteoarthritis. Continue Lewis catheter awaiting placement to laurent swing bed. (3) Diabetes mellitus Status: Chronic Assessment and Plan: Accucheck q6 Sliding scale insulin Hold home medications Continue diabetic diet (4) Chronic kidney disease Status: Chronic Assessment and Plan: baseline function now. She was started on UTI regimen and her creatinine as improved It was likely FLO due to hypovolemia and UTI, she received fluids and getting antibiotic for UTI Avoid nephrotoxic medications Nephrology consulted and patient will follow up with them in the office. (5) Hematoma Status: Acute Assessment and Plan: hgb stable (6) Chronic anemia Status: Acute Assessment and Plan: hgb stable (7) DVT prophylaxis Status: Acute Assessment and Plan: Heparin SubQ (8) CAD (coronary artery disease) Status: Chronic Assessment and Plan: Patient with history of severe coronary artery disease status post CABG On dual antiplatelets We will continue Plavix and statin. (9) Urinary tract infection Status: Resolved Assessment and Plan: completed course of antibiotics - Time Spent with Patient Total time spent is greater than 50% in coordination of care (as documented) at patient's floor/unit and/or counseling patient: Internal Medicine: Result - Labs CBC & Chem 7: 03/01/18 07:32 03/01/18 07:32 - ABG Interpretation ABG results: ABG ABG pH 7.36 pH Units (7.32-7.45) 02/27/18 17:04 ABG pCO2 51 mmHg (35-45) H 02/27/18 17:04 ABG pO2 60 mmHg (85-104) L 02/27/18 17:04 ABG O2 Saturation 89 % (95-98) L 02/27/18 17:04 PT/INR, D-dimer PT 13.2 Seconds (9.4-12.1) H 02/26/18 08:20 - Impressions Impressions Retroperitoneum Ultrasound 03/01/18 16:00 IMPRESSION: Limited study secondary to bowel gas and inability to position the patient. Consequently, the left kidney is not visualized. The right kidney is unremarkable appearance, with no evidence of hydronephrosis. D/ / George Sharp MD / George Sharp MD Interpreting Provider: George Sharp MD - VTE Documentation of Mechanical Device: Intermittent pneumatic compression device Consult Discharge Plan - Plan Referrals: Vane Mckee CNP [Primary Care Provider] - George Falcon DO [Partnered Physician] - 03/29/18 11:00 am Uvaldo Juarez MD [Partnered Physician] - 03/16/18 11:10 am Prescriptions: RX: OxyCODONE/APAP 10/325 [Percocet 10/325 MG] 1 tab PO BID PRN 7 Days #14 tablet PRN Reason: Pain <Ankur Soliz - Last Filed: 03/02/18 15:13> Hospitalist Progress Note - Encounter Date of Encounter: 03/02/18 - Exam Vitals: Temp Pulse Resp BP Pulse Ox 98.3 F 84 16 121/78 96 03/02/18 09:43 03/02/18 09:43 03/02/18 09:43 03/02/18 09:43 03/02/18 09:43 - Assessment and Plan (1) Proximal humerus fracture Status: Acute (2) Pubic ramus fracture Status: Acute (3) Diabetes mellitus Status: Chronic (4) Chronic kidney disease Status: Chronic (5) Hematoma Status: Acute (6) Chronic anemia Status: Acute (7) DVT prophylaxis Status: Acute (8) CAD (coronary artery disease) Status: Chronic (9) Urinary tract infection Status: Resolved - Time Spent with Patient Total time spent is greater than 50% in coordination of care (as documented) at patient's floor/unit and/or counseling patient: Internal Medicine: Result - Labs CBC & Chem 7: 03/01/18 07:32 03/01/18 07:32 - ABG Interpretation ABG results: ABG ABG pH 7.36 pH Units (7.32-7.45) 02/27/18 17:04 ABG pCO2 51 mmHg (35-45) H 02/27/18 17:04 ABG pO2 60 mmHg (85-104) L 02/27/18 17:04 ABG O2 Saturation 89 % (95-98) L 02/27/18 17:04 PT/INR, D-dimer PT 13.2 Seconds (9.4-12.1) H 02/26/18 08:20 - Impressions Impressions Retroperitoneum Ultrasound 03/01/18 16:00 IMPRESSION: Limited study secondary to bowel gas and inability to position the patient. Consequently, the left kidney is not visualized. The right kidney is unremarkable appearance, with no evidence of hydronephrosis. D/ / George Sharp MD / George Sharp MD Interpreting Provider: George Sharp MD - Attending Attestation I have seen and examined this patient independently. I have discussed with resident physician Dr Bull regarding the management plan. Agree with the do cumentation. <Xavi Bull - Last Filed: 03/02/18 09:44> (1) Proximal humerus fracture Qualifiers: Encounter type: initial encounter Fracture type: closed Fracture morphology: other fracture Fracture alignment: nondisplaced Laterality: left Qualified Code(s): S42.295A - Other nondisplaced fracture of upper end of left humerus, initial encounter for closed fracture (2) Pubic ramus fracture Qualifiers: Qualified Code(s): S32.599A - Other specified fracture of unspecified pubis, initial encounter for closed fracture (3) Diabetes mellitus Qualifiers: Diabetes mellitus type: type 2 Diabetes mellitus intermediate accountant insulin use: with intermediate accountant use Diabetes mellitus complication status: with unspecified complications Qualified Code(s): E11.8 - Type 2 diabetes mellitus with unspecified complications; Z79.4 - senior living (current) use of insulin (4) Chronic kidney disease Qualifiers: Chronic kidney disease stage: unspecified stage Qualified Code(s): N18.9 - Chronic kidney disease, unspecified (8) CAD (coronary artery disease) Qualifiers: Coronary Disease-Associated Artery/Lesion type: [place] artery [place] vs. transplanted heart: [place] heart Associated angina: without angina Qualified Code(s): I25.10 - Atherosclerotic heart disease of [place] coronary artery without angina pectoris (9) Urinary tract infection Qualifiers: Urinary tract infection type: acute cystitis Hematuria presence: without hematuria Qualified Code(s): N30.00 - Acute cystitis without hematuria <Ankur Soliz - Last Filed: 03/02/18 15:13> (1) Proximal humerus fracture Qualifiers: Encounter type: initial encounter Fracture type: closed Fracture morphology: other fracture Fracture alignment: nondisplaced Laterality: left Qualified Code(s): S42.295A - Other nondisplaced fracture of upper end of left humerus, initial encounter for closed fracture (2) Pubic ramus fracture Qualifiers: Qualified Code(s): S32.599A - Other specified fracture of unspecified pubis, initial encounter for closed fracture (3) Diabetes mellitus Qualifiers: Diabetes mellitus type: type 2 Diabetes mellitus intermediate accountant insulin use: with prison use Diabetes mellitus complication status: with unspecified complications Qualified Code(s): E11.8 - Type 2 diabetes mellitus with unspecified complications; 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
[2018-03-02 12:07] VITALS: BP 121/78
[2018-03-02 13:19] LABS: Myeloperoxidase Ab 0 AU/mL (0-19); Serine Protease-3 Antibody 0 AU/mL (0-19)
[2018-03-02 17:10] LABS: Alpha 2 Globulin (PEP) 0.97 g/dL (0.48-1.05); Beta Globulin (PEP) 0.76 g/dL (0.48-1.10)
[2018-03-03 10:39] LABS: IFE Reflexed NOT DONE
[2018-03-03 10:40] LABS: ANA IgG by ELISA NONE DETECTED (None Detected)
== END 2018-03-02 15:00 | DRG 563 ==
LOC: 3NENU → SUATTDRO 21:51
PROVIDERS: ADMIT Internal Medicine; ATTEND Internal Medicine